=== PATIENT | male | born 1985 | race Caucasian/White ===

== ENCOUNTER 2018-07-01 19:39 | Emergency (ER) | payer OTHER ==
[~2018-07-01] VITALS: Ht 157.5 cm; Wt 67.0 kg
[~2018-07-01 19:39] MED LIST: BUPR8MIS PO
[2018-07-01 19:45] VITALS: TEMP 37.1; Ht 157.5 cm; Wt 67.0 kg
[2018-07-01] MEDS ORDERED: IBUPROFEN 600 MG TAB PO STA (19:56)
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
[2018-07-01] MEDS ORDERED: OXYC-90 PO (21:23)
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
[2018-07-01 21:52] VITALS: BP 119/62; PULSE 62; O2SAT 98
== END 2018-07-01 21:53 | disposition home or self-care (01) ==
LOC: C.EDB 19:42 → C.EDD 21:53
DX: S70.11XA Contusion of right thigh, initial encounter (principal); S50.311A Abrasion of right elbow, initial encounter; S40.219A Abrasion of unspecified shoulder, initial encounter; T14.8XXA Other injury of unspecified body region, initial encounter; V19.9XXA Pedal cyclist (driver) (passenger) injured in unspecified traffic accident, initial encounter; Y93.55 Activity, bike riding; F17.200 Nicotine dependence, unspecified, uncomplicated; Z86.19 Personal history of other infectious and parasitic diseases

== ENCOUNTER 2022-12-29 22:46 | Inpatient (IN) ==
[2022-12-29] MEDS ORDERED: SODIUM CHLORIDE 0.9% 1000ML 1,000 ML IV STA (23:21)
[2022-12-30] MEDS ORDERED: ONDANSETRON INJ 2 MG/ML 2 ML VIAL IV STA ×2 (00:02→01:53)
[2022-12-30] MEDS ORDERED: OCTREOTIDE ACETATE 50 MCG in SYRINGE 9.5 ML IV STA (00:02)
[2022-12-30] MEDS ORDERED: FAMOTIDINE 20MG IV PUSH 20 MG/5 ML SYR IV STA (00:02)
[2022-12-30] MEDS ORDERED: STAT IV STA ×2 (00:02→14:39)
[2022-12-30] MEDS ORDERED: PANTOprazole 80 MG in DEXTROSE 5% 100 ML IV STA (00:02)
[2022-12-30] MEDS ORDERED: OCTREOTIDE ACETATE 500 MCG in DEXTROSE 5% 100 ML IV SCH (00:15)
[2022-12-30] MEDS ORDERED: cefTRIAXone SODIUM 2,000 MG/70 ML BAG IV STA (00:28)
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
[2022-12-30] MEDS: SODIUM CHLORIDE 0.9% 1000ML 2,000 ML IV ONE ×2 (00:32→01:10)
[2022-12-30 00:45] LABS: Basophils # (auto) 0.11 K/uL (0-0.2); Basophils % (auto) 0.5 %; Hematocrit (blood only) 45.3 % (42.0-52.0); Hemoglobin 15.7 g/dl (14.0-18.0); Immature Granulocytes # (auto) 0.11 K/uL (0.01-0.20); Immature Granulocytes % (auto) 0.5 %; Lymphocytes # (auto) 0.98 K/uL (1.2-3.4); Lymphocytes % (auto) 4.9 %; Mean Corpuscular Hemoglobin 27.8 pg (25.0-34.0); Mean Corpuscular Hgb Conc 34.7 g/dL (32.0-36.0); Mean Corpuscular Volume 80.3 fL (80.0-100.0); Mean Platelet Volume 8.9 fL (9.4-12.4); Monocytes # (auto) 1.15 K/uL (0.11-0.59); Monocytes % (auto) 5.7 %; Neutrophils # (auto) 17.69 K/uL (1.40-6.50); Neutrophils % (auto) 88.4 %; Platelet Count 315 K/uL (130-400); RDW Coefficient of Variation 19.3 % (11.5-14.5); RDW Standard Deviation 53.7 fL (36.4-46.3); Red Blood Count 5.64 M/uL (4.70-6.10); White Blood Count 20.04 K/ul (4.8-10.8)
[2022-12-30 00:48] LABS: iSTAT Creatinine 1.1 mg/dl (0.6-1.3); iSTAT Hemoglobin 17.7 g/dl (14.0-18.0); iSTAT Ionized Calcium 0.95 mmol/l (1.12-1.32); iSTAT Potassium 2.8 mmol/L (3.3-5.0)
[2022-12-30 01:25] LABS: Albumin Globulin Ratio 1.1 (0.9-2); BUN Creatinine Ratio 14.7 (10-20); Bilirubin,Total 1.1 mg/dl (0.2-1.0); Calcium 9.7 mg/dl (8.5-10.1); Creatinine Clr Calc Pharmacy 83.1 ml/min; Est GFR (African American) 106.8 ml/min; Est GFR (Non-African American) 92.2 ml/min; Globulin 4.6 gm/dl (2.5-4.0); Magnesium 1.6 mg/dl (1.7-2.4); Potassium 2.9 mmol/L (3.5-5.1); Total Protein 9.6 gm/dl (6.0-8.3)
[2022-12-30] MEDS ORDERED: OPTIRAY 350 100ml IV ONE (03:11)
[2022-12-30 03:26] LABS: Appearance Urine Clear (Clear); Bilirubin Urine Negative (Negative); Blood Urine Negative (Negative); Color Urine Yellow; Glucose Urine UA Negative (Negative); Ketones Urine 2+ (Negative); Leukocyte Esterase Urine Negative (Negative); Nitrite Urine Negative (Negative); Protein Urine Negative (Negative); Specific Gravity Urine 1.012 (1.000-1.030); Urobilinogen Urine Negative (Negative)
[2022-12-30] MEDS: MAGNESIUM SULFATE / D5W 1 GM/100 ML BAG IV SCH ×2 (03:28→08:08)
[2022-12-30 03:51] LABS: Amphetamines+Metham, Urine Neg (Neg); Barbiturates, Urine Neg (Neg); Benzodiazepine, Urine Neg (Neg); Cocaine, Urine Neg (Neg); MDMA (Ecstacy), Urine Neg (Neg); Methadone, Urine Neg (Neg); Opiate, Urine Neg (Neg); Phencyclidine, Urine Neg (Neg)
[2022-12-30] MEDS ORDERED: LORazepam 2 MG/1 ML VIAL IV STA (03:54)
[2022-12-30] MEDS ORDERED: GABAPENTIN 600 MG TAB PO STA (04:10)
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
[2022-12-30] MEDS ORDERED: THIAMINE HCL 100 MG in SYRINGE 9 ML IV STA (04:16)
[2022-12-30] MEDS: POTASSIUM CHLORIDE / WTR 10 MEQ/100 ML PLCT IV SCH ×6 (04:25→10:21)
[2022-12-30] MEDS ORDERED: Ativan IV Alcohol Withdrawal--Active Protocol IV PRN (04:44)
[2022-12-30] MEDS ORDERED: LORazepam 2 MG/1 ML VIAL IV PRN ×3 (04:44)
[2022-12-30] MEDS ORDERED: GABAPENTIN 1200MG ALCOHOL WITHDRAWAL LOAD PO STA (04:44)
[2022-12-30] MEDS ORDERED: PROMETHAZINE HCL 12.5 MG in SODIUM CHLORIDE 0.9% 50 ML IV PRN (04:46)
[2022-12-30] MEDS ORDERED: SODIUM CHLORIDE 0.9% 1000ML 1,000 ML IV STA (04:54)
[2022-12-30 05:11] LABS: INR 1.1 (0.9-1.1); Prothrombin Time 11.2 Seconds (9.0-12.0)
[2022-12-30] MEDS: PANTOprazole 40 MG in DEXTROSE 5% 100 ML IV SCH ×4 (05:17→20:04)
[2022-12-30] MEDS ORDERED: hydrOXYzine HCl 25 MG TAB PO PRN (05:31)
[2022-12-30] MEDS ORDERED: ACETAMINOPHEN 500 MG TAB PO PRN (05:31)
[2022-12-30 06:34] LABS: Hematocrit (blood only) 39.2 % (42.0-52.0); Hemoglobin 13.4 g/dl (14.0-18.0)
--- NOTE | 2022-12-30 06:55 | XRay Report ---
XR chest 1V portable CLINICAL HISTORY: gi bleed, ETOH abuse COMPARISON STUDY: Chest radiograph March 07, 2019. FINDINGS: Lung volumes are mildly diminished. Lungs are clear. There is no pneumothorax or pleural ef fusion. Cardiac size is normal. Mediastinal contours are normal. There is no evidence for pulmonary e joey. IMPRESSION: No acute cardiopulmonary findings. ACT 112: Negative or not required by law. Electronically signed by: Saad Singh M.D. 12/30/2022 6:54 AM
[2022-12-30] MEDS ORDERED: MAGNESIUM SULFATE 1GM / D5W BAG IV ONE (08:06)
--- NOTE | 2022-12-30 08:16 | CT Scan Report ---
ABDOMEN AND PELVIS CT WITH IV CONTRAST CT DOSE: 392.96 mGy.cm HISTORY: Acute generalized abdominal pain with nausea and vomiting ETOH abuse, GI bleed, pain TECHNIQUE: Multiaxial CT images of the abdomen and pelvis were performed following the IV administrat ion of 87 cc of Optiray, A dose lowering technique was utilized adhering to the principles of ALARA. COMPARISON STUDY: 09/13/2016 FINDINGS: The lung bases are clear. No pneumatosis or pneumoperitoneum. Unremarkable spleen, pancreas , gallbladder and adrenal glands. Hepatomegaly with hepatic steatosis. Patency of the hepatic and por brigitte veins. There are a few nonobstructing calculi noted within the right kidney measuring up to 5 mm. Symmetric enhancement of the kidneys without hydronephrosis. The opacified renal collecting systems and ureters are within normal limits. Urinary bladder wall thickening with partial distention. Mild prostamegaly . Aorta and IVC are unremarkable. There is no lymphadenopathy identified. There is at least moderate circumferential wall thickening of the distal esophagus with mucosal hyper emia and mild adjacent inflammatory stranding. No bowel obstruction or bowel wall thickening. No asci jael or mesenteric inflammation. Appendectomy. Unremarkable soft tissues. Moderate disc space narrowin g with posterior disc osteophyte complex at the L1-L2 level resulting in moderate central canal steno sis with at least mild bilateral neural foraminal narrowing. No acute fracture. IMPRESSION: 1. Findings suggestive of a nonspecific esophagitis. This finding could be correlated with endoscopy if of further clinical concern. 2. No bowel obstruction or bowel wall thickening. 3. Hepatomegaly with hepatic steatosis. 4. Right nephrolithiasis. ACT 112: Negative or not required by law. The above report was generated using voice recognition software. It may contain grammatical, syntax o r spelling errors. Electronically signed by: Khoa Arora M.D. 12/30/2022 8:15 AM
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
[2022-12-30 08:39] LABS: Estimated Average Glucose 120 mg/dl; Hemoglobin A1C 5.8 % (4.5-5.6)
[2022-12-30] MEDS ORDERED: NON-FORMULARY MEDICATION (Multivitamin Tablet) PO SCH (09:00)
[2022-12-30] MEDS: FOLIC ACID 1 MG TAB PO SCH (09:37)
[2022-12-30] MEDS: ESCITALOPRAM OXALATE 10 MG TAB PO SCH (09:37)
[2022-12-30] MEDS: MULTIVITAMIN TAB PO SCH (09:37)
[2022-12-30] MEDS ORDERED: POTASSIUM CHLORIDE 10 MEQ / 100ML WTR IV ONE (10:20)
[2022-12-30] MEDS: GABAPENTIN 600 MG TAB PO SCH ×2 (10:40→18:13)
--- NOTE | 2022-12-30 12:23 | Electrocardiogram Report ---
Test Reason : Blood Pressure : / mmHG Vent. Rate : 094 BPM Atrial Rate : 094 BPM P-R Int : 126 ms QRS Dur : 076 ms QT Int : 396 ms P-R-T Axes : 065 -10 013 degrees QTc Int : 495 ms Normal sinus rhythm Prolonged QT Abnormal ECG No previous ECGs available Confirmed by Kang Osuna ([id number]) on 12/30/2022 12:23:06 PM Referred By: REFERRED SELF Confirmed By:Kang Osuna
[2022-12-30 13:06] LABS: Hematocrit (blood only) 40.1 % (42.0-52.0); Hemoglobin 13.5 g/dl (14.0-18.0)
[2022-12-30] MEDS: OCTREOTIDE ACETATE 500 MCG in DEXTROSE 5% 100 ML IV SCH (15:16)
--- NOTE | 2022-12-30 16:17 | Communication Note ---
Date of Service: December 30, 2022 He is a 37-year-old male with significant history of alcoholism and was admitted with hematemesis and melena. He remains hemodynamically stable and his h emoglobin remained stable. Monitoring hemoglobin. GI evaluation is done and he is going to have EGD tomorrow. Full progress note will be done tomorrow by the hospitalist. He remains n.p.o. and has been getting intravenous Protonix. Dr Nikki Gifford
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
--- NOTE | 2022-12-30 20:42 | Ultrasound Report ---
ABDOMINAL ULTRASOUND, RIGHT UPPER QUADRANT HISTORY: elevated LFTs, ETOH abuse. COMPARISON: Abdominal ultrasound 03/07/2019. Abdomen and pelvis CT 12/30/2022. FINDINGS: Pancreas: Obscured by overlying bowel gas. Liver: The liver is echogenic consistent with fatty change. Gallbladder: No gallbladder wall thickening. No gallstones. CBD: 4.5 mm. Right kidney: No hydronephrosis. There is a 3 mm stone within the upper pole, unchanged. IMPRESSION: 1. Hepatic steatosis. 2. Right-sided nephrolithiasis. No hydronephrosis. 3. Normal gallbladder. No gallstones. ACT 112: Negative or not required by law. Electronically signed by: Luigi Broussard M.D. 12/30/2022 8:41 PM
[2022-12-31] MEDS: GABAPENTIN 600 MG TAB PO SCH ×3 (00:16→16:09)
[2022-12-31] MEDS: OCTREOTIDE ACETATE 500 MCG in DEXTROSE 5% 100 ML IV SCH ×2 (00:18→10:51)
[2022-12-31] MEDS: PANTOprazole 40 MG in DEXTROSE 5% 100 ML IV SCH ×3 (01:57→11:50)
[2022-12-31] MEDS: FOLIC ACID 1 MG TAB PO SCH (08:39)
[2022-12-31] MEDS: ESCITALOPRAM OXALATE 10 MG TAB PO SCH (08:39)
[2022-12-31] MEDS: MULTIVITAMIN TAB PO SCH (08:39)
[2022-12-31] MEDS: THIAMINE HCL 100 MG TAB PO SCH (08:39)
[2022-12-31 09:42] LABS: Basophils # (auto) 0.04 K/uL (0-0.2); Basophils % (auto) 0.5 %; Eosinophils % (auto) 1.3 %; Hematocrit (blood only) 40.7 % (42.0-52.0); Hemoglobin 13.6 g/dl (14.0-18.0); Immature Granulocytes # (auto) 0.03 K/uL (0.01-0.20); Immature Granulocytes % (auto) 0.4 %; Lymphocytes # (auto) 1.41 K/uL (1.2-3.4); Lymphocytes % (auto) 17.9 %; Mean Corpuscular Hemoglobin 27.5 pg (25.0-34.0); Mean Corpuscular Hgb Conc 33.4 g/dL (32.0-36.0); Mean Corpuscular Volume 82.4 fL (80.0-100.0); Mean Platelet Volume 10.3 fL (9.4-12.4); Monocytes # (auto) 0.79 K/uL (0.11-0.59); Monocytes % (auto) 10.1 %; Neutrophils # (auto) 5.49 K/uL (1.40-6.50); Neutrophils % (auto) 69.8 %; Platelet Count 217 K/uL (130-400); RDW Coefficient of Variation 17.7 % (11.5-14.5); Red Blood Count 4.94 M/uL (4.70-6.10); White Blood Count 7.86 K/ul (4.8-10.8)
[2022-12-31 10:02] LABS: BUN Creatinine Ratio 15.6 (10-20); Calcium 8.9 mg/dl (8.5-10.1); Creatinine Clr Calc Pharmacy 110.1 ml/min; Est GFR (African American) 132.5 ml/min; Est GFR (Non-African American) 114.3 ml/min; Magnesium 2.1 mg/dl (1.7-2.4); Potassium 3.8 mmol/L (3.5-5.1)
--- NOTE | 2022-12-31 12:08 | History & Physical Bridge Note ---
Date of Service December 31, 2022 History & Physical Bridge Note I have examined the patient, reviewed the History & Physical and in the interval since the performance of the History & Physical I have noted the following changes of clinical significance: no changes noted. The patient had complaint of hematemesis upon admission yesterday evening, there is been no recurrence of hematemesis and his hemoglobin hematocrit have dropped significantly. I suspect the patient had a Lina-Hurst tear or perhaps bleeding from severe esophagitis as noted during prior upper endoscopy. Patient's nausea is most likely related to his habitual use of cannabis or perhaps alcohol abuse. We are planning to do upper endoscopy today, risks discussed with the patient to include bleeding, infection, perforation, pain and need for follow-up studies.
[2022-12-31] MEDS ORDERED: MIDAZOLAM HCL 1 MG/ML 2ML VIAL ONE (12:11)
[2022-12-31] MEDS ORDERED: LIDOCAINE 2% MPF LOCAL 5 ML VIAL INFIL ONE (12:11)
[2022-12-31] MEDS ORDERED: PROPOFOL IV EMULSION 10 MG/ML 20 ML VIAL IV ONE (12:11)
[2022-12-31] MEDS ORDERED: KETAMINE 50 MG/5 ML SYRINGE ONE (12:11)
--- NOTE | 2022-12-31 12:51 | Post Operative Brief Note ---
Immediate Post Op Note v1 Date of Surgery December 31, 2022 Pre & Post Diagnosis Operation Date: 12/31/22 12:40 Pre-Op Diagnosis: Upper GI Bleed, ETOH WITHDRAWAL Post-Op Diagnosis: esophagitis, hiatal hernia I identified the patient and participated in the time-out.: Yes Procedure Operation Date: 12/31/22 12:40 Actual Procedures p Esophagogastroduodenoscopy - Keo Bangura DO Surgeon Keo Bangura DO Flue Lining Dipper none Estimated Blood Loss 0 Findings Consistent with Post-Op Diagnosis
--- NOTE | 2022-12-31 12:54 | Communication Note ---
Date of Service: December 31, 2022 Patient underwent an upper endoscopy this afternoon. Patient was found to have a medium size hiatal hernia and severe erosive esophagitis of the distal esophagus. recommendation Stop octreotide drip Stop Protonix drip Advance diet as tolerated Protonix 40 mg twice daily for 6 weeks then 1 time daily thereafter Carafate slurry 4 times daily for 10 days Repeat upper endoscopy in 8 to 12 weeks Watch for signs of withdrawal patient should stop use of cannabis as this is certainly causing some of his continued symptoms GI to sign off please call with any additional questions or concerns
--- NOTE | 2022-12-31 12:56 | GI REPORT ---
Patient Name: El Gillis Procedure Date: 12/31/2022 12:11 PM Date of : 1985 Admit Type: Inpatient Age: 37 Gender: Male Attending MD: Keo Bangura DO, Procedure: Upper GI endoscopy Providers: Keo Bangura DO Referring MD: Tra Dick Md Indications: Hematemesis Medicines: Monitored Anesthesia Care Complications: No immediate complications. Estimated blood loss: Minimal. Estimated Blood Loss: Estimated blood loss was minimal. Procedure: Pre-Anesthesia Assessment: - Prior to the procedure, a History and Physical was performed, and patient medications, allergies and sensitivities were reviewed. The patient's tolerance of previous anesthesia was reviewed. - The risks and benefits of the procedure and the sedation options and risks were discussed with the patient. All questions were answered and informed consent was obtained. - Patient identification and proposed procedure were verified prior to the procedure by the physician, the nurse and the ground operations superintendent. The procedure was verified in the procedure room. - Pre-procedure physical examination revealed no contraindications to sedation. - ASA Grade Assessment: II - A patient with mild systemic disease. - After reviewing the risks and benefits, the patient was deemed in satisfactory condition to undergo the procedure. - The anesthesia plan was to use monitored anesthesia care (MAC). - Immediately prior to administration of medications, the patient was re-assessed for adequacy to receive sedatives. - The heart rate, respiratory rate, oxygen saturations, blood pressure, adequacy of pulmonary ventilation, and response to care were monitored throughout the procedure. - The physical status of the patient was re-assessed after the procedure. After obtaining informed consent, the endoscope was passed under direct vision. Throughout the procedure, the patient's blood pressure, pulse, and oxygen saturations were monitored continuously. The Endoscope was introduced through the mouth, and advanced to the third part of duodenum. The upper GI endoscopy was accomplished without difficulty. The patient tolerated the procedure well. Findings: LA Grade D (one or more mucosal breaks involving at least 75% of esophageal circumference) esophagitis with no bleeding was found in the lower third of the esophagus. A medium-sized hiatal hernia was found. The proximal extent of the gastric folds (end of tubular esophagus) was 35 cm from the incisors. The hiatal narrowing was 39 cm from the incisors. The entire examined stomach was normal. The examined duodenum was normal. Impression: - LA Grade D esophagitis with no bleeding. - Medium-sized hiatal hernia. - Normal stomach. - Normal examined duodenum. - No specimens collected. Recommendation: - Return patient to [facility] for [facility] care. - Advance diet as tolerated today. - Use Protonix (pantoprazole) 40 mg PO BID for 6 weeks the 40 mg daily thereafter. - Use sucralfate suspension 1 gram PO QID for 10 days. - Repeat upper endoscopy in 3 months to check healing. - Patient should be advised to stop cannabis and alcohol consumption. Keo Bangura D.O. Keo Bangura, DO 12/31/2022 12:56:04 PM This report has been signed electronically. Note Initiated On: 12/31/2022 12:11 PM Number of Addenda: 0 I attest to the content of the Intraoperative Record and orders documented therein, exceptions below {[id number]}
[2022-12-31] MEDS ORDERED: ONDANSETRON INJ 2 MG/ML 2 ML VIAL IV PRN (13:17)
[2022-12-31] MEDS ORDERED: ePHEDrine sulfate 50 MG/ML AMP IV PRN (13:17)
[2022-12-31] MEDS ORDERED: ATROPINE SULFATE 0.1 MG/ML 10ML SYR IV PRN (13:17)
--- NOTE | 2022-12-31 13:17 | Anesthesiology Progress Note ---
Date of Service December 31, 2022 Anesthesia Post Procedure Vital Signs Vital Signs: Temp Pulse Pulse Pulse Resp BP BP 12/31/22 13:05 57 L 18 105/66 12/31/22 12:57 36 C L 55 L 20 106/61 12/31/22 12:00 36.9 C 56 L 20 135/89 12/31/22 11:59 37.2 C 56 L 18 124/75 12/31/22 07:56 37.3 C 61 18 117/77 12/31/22 07:44 52 L 12/31/22 04:00 37.1 C 56 L 18 145/95 H 12/30/22 22:02 61 12/30/22 23:00 36.8 C 64 18 126/81 12/30/22 19:00 36.9 C 65 18 139/89 12/30/22 17:14 37.4 C 78 18 143/92 H Pulse Ox O2 Del Method O2 Flow Rate 12/31/22 13:05 95 Oxymask 6 12/31/22 12:57 92 Oxymask 6 12/31/22 12:00 93 Room Air 12/31/22 11:59 97 Room Air 12/31/22 07:56 96 Room Air 12/31/22 07:44 12/31/22 04:00 96 Room Air 12/30/22 22:02 12/30/22 23:00 97 Room Air 12/30/22 19:00 95 Room Air 12/30/22 17:14 98 Room Air Pain Intensity Generalized: Pain Intensity: 3 Transfer of Care Handoff Completed per policy Notes Mental Status: alert / awake / arousable and participated in evaluation Nausea / Vomiting: adequately controlled Pain: adequately controlled Airway Patency, RR, SpO2: stable & adequate BP & HR: stable & adequate Hydration State: stable & adequate Anesthetic Complications: no major complications apparent and Pt Satisfied with anesthetic care
--- NOTE | 2022-12-31 13:49 | Hospitalist Progress Note ---
Date of Service December 31, 2022 Assessment & Plan (1) Acute GI bleeding: Plan: Acute Upper GI bleeding Likely due to Erosive Esophagitis NSAIDs use likely contributes --H/O GERD, Alcohol abuse --S/P EGD:LA Grade D esophagitis with no bleeding. Medium-sized hiatal hernia. Normal stomach. Normal examined duodenum. No specimens collected. --CT ABD:Findings suggestive of a nonspecific esophagitis. This finding could be correlated with endoscopy if of further clinical concern. No bowel obstruction or bowel wall thickening. Hepatomegaly with hepatic steatosis. Right nephrolithiasis. --Abd USD:Hepatic steatosis. Right-sided nephrolithiasis. No hydronephrosis. Normal gallbladder. No gallstones. --- IV Protonix drip, octreotide drip discontinued Started on Carafate, Protonix --Appreciate GI input Hemoglobin stable Advance diet as tolerated Plan to continue Carafate for 10 days We will need to repeat upper endoscopy in 8 to 12 weeks Advised to stop cannabis use Plan to continue Protonix 40 mg twice daily for 6 weeks and then once daily Needs to avoid NSAID use Alcohol withdrawal H/O HCV S/P treatment Continue gabapentin protocol Monitor for withdrawal Ativan as needed Continue thiamine, folic acid Mood disorder Continue home medication Hypokalemia Hypomagnesemia Replete electrolytes as needed Prediabetes HbA1c 5.8 DVT Px: SCDs Re: GI bleed Code Status Full code Admission and Anticipated Discharge Date Admission Date: December 30, 2022 Subjective Patient is seen and examined at bedside States having some throat pain Had EGD earlier today Denies any chest pain, shortness of breath, dizziness, nausea, abdominal pain No bleeding issues today Review of Systems Review of Systems: All systems reviewed & are unremarkable except as noted in Subjective Physical Exam Physical Exam: Physical Exam: Vitals signs as noted above General Appearance:Moderately built and nourished, no apparent distress Head: normocephalic, Atraumatic Eyes: normal inspection, EOMI Neck: supple, Trachea midline Respiratory/Chest: Normal breath sounds, CTA, No accessory muscle use Cardiovascular: S1, S2, No murmur Abdomen/GI:Soft, Non tender, Bowel sounds present Extremities/Musculoskeletal:normal inspection, no edema Neurologic/Psych:AAOX3, grossly no focal neurological deficits Skin: normal color, warm Results & Data Results & Data ([facility]) Vital Signs (Past 12 Hours) Vital Signs Temp Pulse Pulse Pulse Resp BP BP 12/31/22 13:35 55 L 20 119/75 12/31/22 13:25 36.4 C L 56 L 20 113/69 12/31/22 13:15 62 12 118/84 12/31/22 13:05 57 L 18 105/66 12/31/22 12:57 36 C L 55 L 20 106/61 12/31/22 12:00 36.9 C 56 L 20 135/89 12/31/22 11:59 37.2 C 56 L 18 124/75 12/31/22 07:56 37.3 C 61 18 117/77 12/31/22 07:44 52 L 12/31/22 04:00 37.1 C 56 L 18 145/95 H Pulse Ox O2 Del Method O2 Flow Rate 12/31/22 13:35 93 Room Air 12/31/22 13:25 96 Room Air 12/31/22 13:15 96 Room Air 12/31/22 13:05 95 Oxymask 6 12/31/22 12:57 92 Oxymask 6 12/31/22 12:00 93 Room Air 12/31/22 11:59 97 Room Air 12/31/22 07:56 96 Room Air 12/31/22 07:44 12/31/22 04:00 96 Room Air Laboratory Results Short CBC 12/31/22 Range/Units 09:04 WBC 7.86 (4.8-10.8) K/ul Hgb 13.6 L (14.0-18.0) g/dl Hct 40.7 L (42.0-52.0) % Plt Count 217 (130-400) K/uL BMP 12/31/22 09:04 Sodium 136 Potassium 3.8 D Chloride 100 Carbon Dioxide 27 BUN 12 Creatinine 0.77 Glucose 120 H Calcium 8.9
[2022-12-31] MEDS: SUCRALFATE 1 GM TAB PO SCH ×2 (16:08→21:22)
[2022-12-31] MEDS: SUCRALFATE 1 GM/10 ML UDC PO SCH ×3 (16:11→21:19)
[2022-12-31] MEDS ORDERED: PANTOprazole 40 MG TAB PO SCH (21:00)
[2022-12-31] MEDS: PANTOprazole 40 MG TAB PO SCH (21:21)
[2023-01-01] MEDS ORDERED: GABAPENTIN 600 MG TAB PO SCH (04:45)
[2023-01-01 06:32] LABS: Hematocrit (blood only) 41.2 % (42.0-52.0); Mean Corpuscular Hemoglobin 27.9 pg (25.0-34.0); Mean Corpuscular Volume 82.1 fL (80.0-100.0); Mean Platelet Volume 9.5 fL (9.4-12.4); Platelet Count 207 K/uL (130-400); RDW Coefficient of Variation 17.3 % (11.5-14.5); RDW Standard Deviation 51.1 fL (36.4-46.3); Red Blood Count 5.02 M/uL (4.70-6.10); White Blood Count 8.72 K/ul (4.8-10.8)
[2023-01-01 06:48] LABS: Albumin Globulin Ratio 1.1 (0.9-2); Albumin Level 4.1 gm/dl (3.4-5.0); BUN Creatinine Ratio 17.1 (10-20); Bilirubin,Total 1.3 mg/dl (0.2-1.0); Calcium 9.2 mg/dl (8.5-10.1); Creatinine Clr Calc Pharmacy 105.7 ml/min; Est GFR (African American) 129.1 ml/min; Est GFR (Non-African American) 111.4 ml/min; Globulin 3.7 gm/dl (2.5-4.0); Magnesium 2.1 mg/dl (1.7-2.4); Potassium 3.6 mmol/L (3.5-5.1); Total Protein 7.8 gm/dl (6.0-8.3)
[2023-01-01] MEDS: SUCRALFATE 1 GM TAB PO SCH ×2 (09:26→12:55)
[2023-01-01] MEDS: ESCITALOPRAM OXALATE 10 MG TAB PO SCH (09:26)
[2023-01-01] MEDS: PANTOprazole 40 MG TAB PO SCH (09:26)
[2023-01-01] MEDS: FOLIC ACID 1 MG TAB PO SCH (09:26)
[2023-01-01] MEDS: MULTIVITAMIN TAB PO SCH (09:27)
[2023-01-01] MEDS: THIAMINE HCL 100 MG TAB PO SCH (09:27)
[2023-01-01 12:27] LABS: Marijuana Quant, GCMS Urine 352 ng/mL (<5)
--- NOTE | 2023-01-01 13:48 | Hospitalist Progress Note ---
Date of Service January 01, 2023 Assessment & Plan (1) Acute GI bleeding: Plan: Acute Upper GI bleeding Likely due to Erosive Esophagitis NSAIDs use likely contributes --H/O GERD, Alcohol abuse --S/P EGD:LA Grade D esophagitis with no bleeding. Medium-sized hiatal hernia. Normal stomach. Normal examined duodenum. No specimens collected. --CT ABD:Findings suggestive of a nonspecific esophagitis. This finding could be correlated with endoscopy if of further clinical concern. No bowel obstruction or bowel wall thickening. Hepatomegaly with hepatic steatosis. Right nephrolithiasis. --Abd USD:Hepatic steatosis. Right-sided nephrolithiasis. No hydronephrosis. Normal gallbladder. No gallstones. --- IV Protonix drip, octreotide drip discontinued Started on Carafate, Protonix --Appreciate GI input Hemoglobin stable Advance diet as tolerated Plan to continue Carafate for 10 days Will need to repeat upper endoscopy in 8 to 12 weeks Advised to stop cannabis, alcohol use Plan to continue Protonix 40 mg twice daily for 6 weeks and then once daily Needs to avoid NSAID use Hb stable Advised to follow-up with GI upon discharge Alcohol withdrawal H/O HCV S/P treatment Continue gabapentin protocol Monitor for withdrawal Ativan as needed Continue thiamine, folic acid Outpatient resources for rehab provided Mood disorder Continue home medication Hypokalemia Hypomagnesemia Replete electrolytes as needed Prediabetes HbA1c 5.8 DVT Px: SCDs Re: GI bleed Code Status Full code Disposition Home Admission and Anticipated Discharge Date Admission Date: December 30, 2022 Subjective Patient is seen and examined at bedside States having transient nausea earlier today but resolved Tolerating diet Denies any chest pain, shortness of breath, dizziness, nausea, abdominal pain No recurrence of bleeding issues Review of Systems Review of Systems: All systems reviewed & are unremarkable except as noted in Subjective Physical Exam Physical Exam: Physical Exam: Vitals signs as noted above General Appearance:Moderately built and nourished, no apparent distress Head: normocephalic, Atraumatic Eyes: normal inspection, EOMI Neck: supple, Trachea midline Respiratory/Chest: Normal breath sounds, CTA, No accessory muscle use Cardiovascular: S1, S2, No murmur Abdomen/GI:Soft, Non tender, Bowel sounds present Extremities/Musculoskeletal:normal inspection, no edema Neurologic/Psych:AAOX3, grossly no focal neurological deficits Skin: normal color, warm Results & Data Results & Data ([facility]) Vital Signs (Past 12 Hours) Vital Signs Temp Pulse Pulse Resp BP Pulse Ox O2 Del Method 01/01/23 12:00 37.1 C 74 18 131/88 98 Room Air 01/01/23 07:58 36.9 C 56 L 18 132/78 97 Room Air 01/01/23 07:25 56 L 01/01/23 04:00 36.9 C 70 18 125/77 93 Room Air Laboratory Results Short CBC 01/01/23 Range/Units 05:47 WBC 8.72 (4.8-10.8) K/ul Hgb 14.0 (14.0-18.0) g/dl Hct 41.2 L (42.0-52.0) % Plt Count 207 (130-400) K/uL BMP 01/01/23 05:47 Sodium 137 Potassium 3.6 Chloride 101 Carbon Dioxide 29 BUN 14 Creatinine 0.82 Glucose 110 H Calcium 9.2 Liver Function 01/01/23 Range/Units 05:47 Total Bilirubin 1.3 H (0.2-1.0) mg/dl AST 31 (13-39) U/L ALT 19 (7-52) U/L Alkaline Phosphatase 82 (34-104) U/L Albumin 4.1 (3.4-5.0) gm/dl
--- NOTE | 2023-01-01 14:04 | Discharge Summary ---
Date of Service January 01, 2023 Admission HPI Per Admitting Provider History obtained from patient and records. Medical history significant for HCV status post treatment, GERD, history anal fissure, mood disorder, chronic anemia (baseline hemoglobin of 13 ), alcohol abuse. Patient has had intermittent hematemesis episodes and abdominal pain over the last few years. Episodes related to alcohol intake as per patient. Symptoms would resolve with temporary cessation of alcohol intake. Patient moved back with his parents in [place] 3 months ago after living in [place]. 5 days ago, patient noted worsening achy abdominal discomfort with nausea symptoms. No fever, no chills. Short of breath from pain. Hematemesis worse than usual noted yesterday. 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 Patient shaky and freezing from discomfort yesterday. Denies depression. Patient drinks alcohol to keep himself preoccupied because he has nothing else to do at home. Melanotic stools noted at the ER. 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 Admission Exam Per Admitting Provider Physical Exam Physical Exam: GENERAL: uncomfortable, tremulous, no respiratory distress SKIN: Pallor, warm HEENT: Pale palpebral conjunctivae, no ptosis, dry buccal mucosa NECK : Supple, no tenderness CHEST : CTA, no tenderness HEART : RRR, no obvious murmurs ABDOMEN: Some distention, epigastric tenderness EXTREMITIES : No LE swelling/tenderness, no other conspicuous deformities noted NEUROLOGIC : Coherent, no facial asymmetry, tremulous, no other gross focality Principal Diagnosis Acute Upper GI bleeding Erosive Esophagitis Alcohol withdrawal Hypokalemia Hypomagnesemia Cannabis use Discharge Data Allergies Allergy/AdvReac Type Severity Reaction Status Date / Time No Known Allergies Allergy Verified 12/30/22 01:18 Consultations 12/30/22 03:55 ED Decision to Admit Stat 12/30/22 05:31 Consult Gastroenterology Routine Procedures Performed Operation Date: 12/31/22 12:40 Actual Procedures p Esophagogastroduodenoscopy - Keo Bangura DO Ordered Studies 12/30/22 00:07 CT Abd and Pelvis [CT abd pelvis IV con only] Urgent 12/30/22 09:19 US abdomen limited Routine Laboratory Results WBC 8.72 K/ul (4.8-10.8) 01/01/23 05:47 RBC 5.02 M/uL (4.70-6.10) 01/01/23 05:47 Hgb 14.0 g/dl (14.0-18.0) 01/01/23 05:47 POC Hgb 17.7 g/dl (14.0-18.0) 12/30/22 00:36 Hct 41.2 % (42.0-52.0) L 01/01/23 05:47 POC Hct 52 % (42-52) 12/30/22 00:36 MCV 82.1 fL (80.0-100.0) 01/01/23 05:47 MCH 27.9 pg (25.0-34.0) 01/01/23 05:47 MCHC 34.0 g/dL (32.0-36.0) 01/01/23 05:47 RDW Std Deviation 51.1 fL (36.4-46.3) H 01/01/23 05:47 RDW Coeff of Luke 17.3 % (11.5-14.5) H 01/01/23 05:47 Plt Count 207 K/uL (130-400) 01/01/23 05:47 MPV 9.5 fL (9.4-12.4) 01/01/23 05:47 Immature Gran % (Auto) 0.4 % 12/31/22 09:04 Neut % (Auto) 69.8 % 12/31/22 09:04 Lymph % (Auto) 17.9 % 12/31/22 09:04 Dundy % (Auto) 10.1 % 12/31/22 09:04 Eos % (Auto) 1.3 % 12/31/22 09:04 Baso % (Auto) 0.5 % 12/31/22 09:04 Neut # (Auto) 5.49 K/uL (1.40-6.50) 12/31/22 09:04 Lymph # (Auto) 1.41 K/uL (1.2-3.4) 12/31/22 09:04 Dundy # (Auto) 0.79 K/uL (0.11-0.59) H 12/31/22 09:04 Eos # (Auto) 0.10 K/uL (0-0.50) 12/31/22 09:04 Baso # (Auto) 0.04 K/uL (0-0.2) 12/31/22 09:04 Immature Gran # (Auto) 0.03 K/uL (0.01-0.20) 12/31/22 09:04 PT 11.2 Seconds (9.0-12.0) 12/30/22 00:35 INR 1.1 (0.9-1.1) 12/30/22 00:35 POC Sodium 141 mmol/L (135-144) 12/30/22 00:36 Sodium 137 mmol/L (136-145) 01/01/23 05:47 POC Potassium 2.8 mmol/L (3.3-5.0) L 12/30/22 00:36 Potassium 3.6 mmol/L (3.5-5.1) 01/01/23 05:47 POC Chloride 98 mmol/L (101-112) L 12/30/22 00:36 Chloride 101 mmol/L (98-107) 01/01/23 05:47 Carbon Dioxide 29 mmol/L (21-32) 01/01/23 05:47 POC Total CO2 22 mmol/L (24-31) L 12/30/22 00:36 Anion Gap 7 (3-11) 01/01/23 05:47 POC Anion Gap 25.0 mmol/L (16-25) 12/30/22 00:36 POC BUN 14 mg/dl (7-18) 12/30/22 00:36 BUN 14 mg/dl (6-23) 01/01/23 05:47 Creatinine 0.82 mg/dl (0.6-1.4) 01/01/23 05:47 POC Creatinine 1.1 mg/dl (0.6-1.3) 12/30/22 00:36 Est Cr Clr Drug Dosing 105.7 ml/min 01/01/23 05:47 Est GFR ( Amer) 129.1 ml/min 01/01/23 05:47 Est GFR (Non-Af Amer) 111.4 ml/min 01/01/23 05:47 BUN/Creatinine Ratio 17.1 (10-20) 01/01/23 05:47 Glucose 110 mg/dl (70-99(Fasting)) H 01/01/23 05:47 POC Glucose (other) 134 mg/dl (70-99) H 12/30/22 00:36 Estimat Average Glucose 120 mg/dl 12/30/22 00:35 Hemoglobin A1c 5.8 % (4.5-5.6) H 12/30/22 00:35 Calcium 9.2 mg/dl (8.5-10.1) 01/01/23 05:47 POC Ioniz Calcium Dillon 0.95 mmol/l (1.12-1.32) L 12/30/22 00:36 Magnesium 2.1 mg/dl (1.7-2.4) 01/01/23 05:47 Total Bilirubin 1.3 mg/dl (0.2-1.0) H 01/01/23 05:47 AST 31 U/L (13-39) 01/01/23 05:47 ALT 19 U/L (7-52) 01/01/23 05:47 Alkaline Phosphatase 82 U/L (34-104) 01/01/23 05:47 Total Creatine Kinase 509 U/L (30-223) H 12/30/22 00:35 Total Protein 7.8 gm/dl (6.0-8.3) 01/01/23 05:47 Albumin 4.1 gm/dl (3.4-5.0) 01/01/23 05:47 Globulin 3.7 gm/dl (2.5-4.0) 01/01/23 05:47 Albumin/Globulin Ratio 1.1 (0.9-2) 01/01/23 05:47 Lipase 28 U/L (11-82) 12/30/22 00:35 TSH 2.233 uIu/ml (0.300-4.500) 12/30/22 00:35 Urine Color Yellow 12/30/22 02:47 Urine Appearance Clear (Clear) 12/30/22 02:47 Urine pH 6.0 (4.5-7.5) 12/30/22 02:47 Ur Specific Gilbert 1.012 (1.000-1.030) 12/30/22 02:47 Urine Protein Negative (Negative) 12/30/22 02:47 Urine Glucose (UA) Negative (Negative) 12/30/22 02:47 Urine Ketones 2+ (Negative) H 12/30/22 02:47 Urine Blood Negative (Negative) 12/30/22 02:47 Urine Nitrite Negative (Negative) 12/30/22 02:47 Urine Bilirubin Negative (Negative) 12/30/22 02:47 Urine Urobilinogen Negative (Negative) 12/30/22 02:47 Ur Leukocyte Esterase Negative (Negative) 12/30/22 02:47 Urine Opiates Screen Neg (Neg) 12/30/22 02:47 Ur Methadone, Qual Neg (Neg) 12/30/22 02:47 Acetaminophen < 3 ug/ml (10-30) L 12/30/22 12:49 Urine Barbiturates Neg (Neg) 12/30/22 02:47 Ur Phencyclidine (PCP) Neg (Neg) 12/30/22 02:47 U Amphetamin/Meth Scrn Neg (Neg) 12/30/22 02:47 MDMA (Ecstasy) Screen Neg (Neg) 12/30/22 02:47 U Benzodiazepines Scrn Neg (Neg) 12/30/22 02:47 Ur Cocaine Metabolite Neg (Neg) 12/30/22 02:47 U Marijuana (THC) Screen Pos (Neg) H 12/30/22 02:47 U Marijuana THC Carboxy 352 ng/mL (<5) H 12/30/22 02:47 Drug Screen Comment SEE NOTE 12/30/22 02:47 Ethyl Alcohol mg/dL 34.2 mg/dl (<10.0) H 12/30/22 02:04 SARS-CoV-2, RNA, NAAT NEGATIVE (NEGATIVE) 12/30/22 01:53 Blood Type O Positive 12/30/22 00:40 Antibody Screen NEGATIVE 12/30/22 00:40 Impressions Abdomen/Pelvis CT 12/30/22 00:[address] WITH IV CONTRAST CT DOSE: 392.96 mGy.cm HISTORY: Acute generalized abdominal pain with nausea and vomiting ETOH abuse, GI bleed, pain TECHNIQUE: Multiaxial CT images of the abdomen and pelvis were performed following the IV administration of 87 cc of Optiray, A dose lowering technique was utilized adhering to the principles of ALARA. COMPARISON STUDY: 09/13/2016 FINDINGS: The lung bases are clear. No pneumatosis or pneumoperitoneum. Unremarkable spleen, pancreas, gallbladder and adrenal glands. Hepatomegaly with hepatic steatosis. Patency of the hepatic and portal veins. There are a few nonobstructing calculi noted within the right kidney measuring up to 5 mm. Symmetric enhancement of the kidneys without hydronephrosis. The opacified renal collecting systems and ureters are within normal limits. Urinary bladder wall thickening with partial distention. Mild prostamegaly. Aorta and IVC are unremarkable. There is no lymphadenopathy identified. There is at least moderate circumferential wall thickening of the distal esophagus with mucosal hyperemia and mild adjacent inflammatory stranding. No bowel obstruction or bowel wall thickening. No ascites or mesenteric inflammation. Appendectomy. Unremarkable soft tissues. Moderate disc space narrowing with posterior disc osteophyte complex at the L1-L2 level resulting in moderate central canal stenosis with at least mild bilateral neural foraminal narrowing. No acute fracture. IMPRESSION: 1. Findings suggestive of a nonspecific esophagitis. This finding could be correlated with endoscopy if of further clinical concern. 2. No bowel obstruction or bowel wall thickening. 3. Hepatomegaly with hepatic steatosis. 4. Right nephrolithiasis. ACT 112: Negative or not required by law. The above report was generated using voice recognition software. It may contain grammatical, syntax or spelling errors. Electronically signed by: Khoa Arora M.D. 12/30/2022 8:15 AM Chest X-Ray 12/30/22 00:24 XR chest 1V portable CLINICAL HISTORY: gi bleed, ETOH abuse COMPARISON STUDY: Chest radiograph March 07, 2019. FINDINGS: Lung volumes are mildly diminished. Lungs are clear. There is no pneumothorax or pleural effusion. Cardiac size is normal. Mediastinal contours are normal. There is no evidence for pulmonary edema. IMPRESSION: No acute cardiopulmonary findings. ACT 112: Negative or not required by law. Electronically signed by: Saad Singh M.D. 12/30/2022 6:54 AM Abdomen Ultrasound 12/30/22 09:19 ABDOMINAL ULTRASOUND, RIGHT UPPER QUADRANT HISTORY: elevated LFTs, ETOH abuse. COMPARISON: Abdominal ultrasound 03/07/2019. Abdomen and pelvis CT 12/30/2022. FINDINGS: Pancreas: Obscured by overlying bowel gas. Liver: The liver is echogenic consistent with fatty change. Gallbladder: No gallbladder wall thickening. No gallstones. CBD: 4.5 mm. Right kidney: No hydronephrosis. There is a 3 mm stone within the upper pole, unchanged. IMPRESSION: 1. Hepatic steatosis. 2. Right-sided nephrolithiasis. No hydronephrosis. 3. Normal gallbladder. No gallstones. ACT 112: Negative or not required by law. Electronically signed by: Luigi Broussard M.D. 12/30/2022 8:41 PM Hospital Course (1) Acute GI bleeding: Acute Upper GI bleeding Likely due to Erosive Esophagitis NSAIDs use likely contributes --H/O GERD, Alcohol abuse --S/P EGD:LA Grade D esophagitis with no bleeding. Medium-sized hiatal hernia. Normal stomach. Normal examined duodenum. No specimens collected. --CT ABD:Findings suggestive of a nonspecific esophagitis. This finding could be correlated with endoscopy if of further clinical concern. No bowel obstruction or bowel wall thickening. Hepatomegaly with hepatic steatosis. Right nephrolithiasis. --Abd USD:Hepatic steatosis. Right-sided nephrolithiasis. No hydronephrosis. Normal gallbladder. No gallstones. --- IV Protonix drip, octreotide drip discontinued Started on Carafate, Protonix --Appreciate GI input Hemoglobin stable Advance diet as tolerated Plan to continue Carafate for 10 days Will need to repeat upper endoscopy in 8 to 12 weeks Advised to stop cannabis, alcohol use Plan to continue Protonix 40 mg twice daily for 6 weeks and then once daily Needs to avoid NSAID use Hb stable Advised to follow-up with GI upon discharge Alcohol withdrawal H/O HCV S/P treatment Continue gabapentin protocol Monitor for withdrawal Ativan as needed Continue thiamine, folic acid Outpatient resources for rehab provided Mood disorder Continue home medication Hypokalemia Hypomagnesemia Replete electrolytes as needed Prediabetes HbA1c 5.8 DVT Px: SCDs Re: GI bleed Code Status Full code Disposition Home Total Time Total Time Spent Total Time Spent (In Minutes): 50 minutes Discharge Plan Discharge Items Patient Disposition: Home - Self-Care Reason For Visit: UGIB, ETOH WITHDRAWAL Discharge Diagnosis: Acute Upper GI bleeding Erosive Esophagitis Alcohol withdrawal Hypokalemia Hypomagnesemia Cannabis use Condition on Discharge: Fair Activity: Per Instructions section Exercise/Sports: Gradually increase as tolerated Non-emergency contact: Primary Care Provider and Ct Scan Tech Call non-emergency contact if: you have any medication questions, your symptoms worsen, your pain is concerning for you and you have a fever Follow-up/Referrals: PCP,NO [Primary Care Provider] - Diet: Heart Healthy Addtl Attending Provider Instructions: Follow-up with your primary care physician in 1 week as advised 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 List Of these medications includes but not limited to: Aspirin Diclofenac Ibuprofen, Motrin, Advil Toradol,ketorolac Naproxen, Aleve, Naprosyn You can take Tylenol as needed for pain or fever When buying [id number] pain medications please consult with pharmacy if you are not sure regarding ingredients, as a lot of the pain medications have combination of NSAIDs and Tylenol. Seek immediate medical attention if your symptoms reoccur or worsen Please take all medications as instructed on discharge list below. Please call if you have any questions or problems. You can reach a [facility] hospitalist on duty at [facility] 24 hours a day by calling [phone] Pending Studies at Discharge: No Stand-Alone Forms: [facility] [email or web address], Work/School Release, Smoking Cessation Medications and DC Order Prescriptions: New pantoprazole 40 mg Tablet,Delayed Release (Dr/Ec) 40 mg PO UD Qty: 60 2RF Rx Instructions: Take Protonix 40 mg twice daily for 6 weeks and then once daily sucralfate 1 gram Tablet 1 g PO QID 10 Days Qty: 40 0RF thiamine HCl (vitamin B1) 100 mg Tablet 100 mg PO QAM Qty: 30 0RF folic acid 1 mg Tablet 1 mg PO QAM Qty: 30 0RF Continued escitalopram oxalate 10 mg tablet 10 mg PO DAILY multivitamin Tablet 1 tab PO DAILY hydroxyzine HCl 50 mg tablet 50 mg PO HS PRN (Reason: SLEEP/ANXIETY) hydrocortisone 2.5 % Cream With Perineal Applicator 1 applic MI BID PRN (Reason: Hemorrhoids) ergocalciferol (vitamin D2) [Vitamin D2] 1,250 mcg (50,000 unit) Capsule 1,250 mcg PO WK cholecalciferol (vitamin D3) [Vitamin D3] 25 mcg (1,000 unit) Capsule 25 mcg PO DAILY Selenium Powder 1 tbsp PO DAILY Discontinued omeprazole 20 mg Capsule,Delayed Release(Dr/Ec) 20 mg PO DAILY Discharge Orders: Discharge Order (Routine); Ordered 01/01/23 Ordered By: Tra Dick Admission Data Admit Date/Time: 12/30/22 04:42 Attending Provider: Tra Dick Admit Provider: Hua Nieto Primary Care Provider: PCP,NO Other Providers: [facility] ; Hua Nieto ; Tylor Santamaria ; Yandel Walton ; Oriana Du ; Zoila Esteban ; Janeen Serra ; Jory Hernandez ; Vignesh Gaitan ; Ankush Walker ; Keo Bangura ; Jodie Alfredo ; Jaylen Noble ; Niya Yusuf ; Ayaka Camara ; Gabriela Barksdale ; Shauna Mitchell ; Rocael Coleman ; Alexei Hunt ; Fred Tineo ; Jami Nice ; Vu Joseph Jr
[2023-01-02] MEDS ORDERED: GABAPENTIN 600 MG TAB PO SCH (16:45)
[2023-01-03 13:42] LABS: HBSAG NON-REACTIVE (NON-REACTIVE); Hepatitis A Antibody IgM NON-REACTIVE (NON-REACTIVE); Hepatitis B Core Antibody IgM NON-REACTIVE (NON-REACTIVE); Hepatitis C Vira RNA (Log) PCR <1.18 NOT DETECTED Log IU/mL (NOT DETECTED); Hepatitis C Viral RNA by PCR <15 NOT DETECTED IU/mL (NOT DETECTED)
== END 2023-01-01 15:25 | disposition home or self-care (01) | DRG 369 ==
LOC: ED 22:46 → SUATTDRO 12-30 04:42 → EDINP 12-30 04:42 → 2W 12-30 05:24

== ENCOUNTER 2023-10-11 23:06 | Inpatient (IN) ==
[2023-10-11] MEDS ORDERED: ONDANSETRON INJ 2 MG/ML 2 ML VIAL IV STA (23:52)
[2023-10-11] MEDS ORDERED: MULTI-VITAMIN INFUSION 10 ML, THIAMINE HCL 100 MG, FOLIC ACID 1 MG in SODIUM CHLORIDE 0... IV ONE (23:52)
[2023-10-12] MEDS ORDERED: LORazepam 1 MG/1 ML SYR ED Inj Use IV STA ×2 (00:08→01:08)
[2023-10-12 00:17] LABS: Albumin Globulin Ratio 1.2 (0.9-2); Albumin Level 4.9 gm/dl (3.4-5.0); BUN Creatinine Ratio 13.8 (10-20); Bilirubin,Total 0.9 mg/dl (0.2-1.0); Creatinine Clr Calc Pharmacy 107.4 ml/min; Est GFR (African American) 129.5 ml/min; Est GFR (Non-African American) 111.7 ml/min; Globulin 4.2 gm/dl (2.5-4.0); Potassium 4.1 mmol/L (3.5-5.1); Total Protein 9.1 gm/dl (6.0-8.3)
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
[2023-10-12 00:24] LABS: Troponin I High Sensitivity 7.2 pg/ml (0-20)
[2023-10-12 00:36] LABS: Acetaminophen < 3 ug/ml (10-30); Salicylate < 3.0 mg/dl (3.0-30)
[2023-10-12 00:47] LABS: Amphetamines+Metham, Urine Neg (Neg); Barbiturates, Urine Neg (Neg); Benzodiazepine, Urine Neg (Neg); Cocaine, Urine Neg (Neg); MDMA (Ecstacy), Urine Neg (Neg); Marijuana, Urine Pos (Neg); Methadone, Urine Neg (Neg); Opiate, Urine Neg (Neg); Phencyclidine, Urine Neg (Neg)
[2023-10-12 02:07] LABS: Adenovirus PCR Not Detected (NotDetected); Bordetella parapertussis PCR Not Detected (NotDetected); Bordetella pertussis PCR Not Detected (NotDetected); Chlamydia pneumoniae PCR Not Detected (NotDetected); Coronavirus 229E PCR Not Detected (NotDetected); Coronavirus CoV-2 (COVID19)PCR Not Detected (NotDetected); Coronavirus HKU1 PCR Not Detected (NotDetected); Coronavirus NL63 PCR Not Detected (NotDetected); Coronavirus OC43PCR Not Detected (NotDetected); Human Metapneumovirus PCR Not Detected (NotDetected); Influenza A PCR Not Detected (NotDetected); Influenza B PCR Not Detected (NotDetected); Mycoplasma pneumoniae PCR Not Detected (NotDetected); Parainfluenza Virus 1 PCR Not Detected (NotDetected); Parainfluenza Virus 2 PCR Not Detected (NotDetected); Parainfluenza Virus 3 PCR Not Detected (NotDetected); Parainfluenza Virus 4 PCR Not Detected (NotDetected); Respiratory Syncytial VirusPCR Not Detected (NotDetected)
[2023-10-12 02:24] LABS: Rhinovirus/Enterovirus PCR DETECTED (NotDetected)
[2023-10-12] MEDS ORDERED: GABAPENTIN 600 MG TAB PO STA (04:04)
[2023-10-12] MEDS ORDERED: LORazepam 2 MG in SYRINGE 1 ML IV PRN (04:41)
[2023-10-12] MEDS ORDERED: PROMETHAZINE HCL 6.25 MG in SODIUM CHLORIDE 0.9% 50 ML IV PRN (04:41)
[2023-10-12] MEDS ORDERED: LORazepam 3 MG in SYRINGE 1.5 ML IV PRN (04:41)
[2023-10-12] MEDS ORDERED: LACTATED RINGER'S 1,000 ML IV ONE (04:41)
[2023-10-12] MEDS ORDERED: Ativan IV Alcohol Withdrawal--Active Protocol IV PRN (04:41)
[2023-10-12] MEDS ORDERED: GABAPENTIN 1200MG ALCOHOL WITHDRAWAL LOAD PO STA (04:41)
[2023-10-12] MEDS ORDERED: LORazepam 1 MG in SYRINGE 0.5 ML IV PRN (04:41)
[2023-10-12] MEDS ORDERED: ACETAMINOPHEN 500 MG TAB PO PRN (04:41)
[2023-10-12] MEDS ORDERED: MAGNESIUM SULFATE / D5W 1 GM/100 ML BAG IV ONE (04:42)
[2023-10-12] MEDS ORDERED: PANTOprazole 80 MG in DEXTROSE 5% 100 ML IV STA (04:44)
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
[2023-10-12 05:22] LABS: Basophils # (auto) 0.03 K/uL (0.00-0.20); Basophils % (auto) 0.5 %; Eosinophils # (auto) 0.01 K/uL (0.00-0.50); Eosinophils % (auto) 0.2 %; Hematocrit (blood only) 42.1 % (42.0-52.0); Hemoglobin 14.1 g/dl (14.0-18.0); Immature Granulocytes # (auto) 0.03 K/uL (0.01-0.20); Immature Granulocytes % (auto) 0.5 %; Lymphocytes # (auto) 1.39 K/uL (1.20-3.40); Mean Corpuscular Hemoglobin 28.7 pg (25.0-34.0); Mean Corpuscular Hgb Conc 33.5 g/dL (32.0-36.0); Mean Corpuscular Volume 85.6 fL (80.0-100.0); Mean Platelet Volume 9.1 fL (9.4-12.4); Monocytes # (auto) 0.59 K/uL (0.11-0.59); Monocytes % (auto) 8.9 %; Neutrophils # (auto) 4.58 K/uL (1.40-6.50); Neutrophils % (auto) 68.9 %; Platelet Count 194 K/uL (130-400); RDW Coefficient of Variation 17.7 % (11.5-14.5); RDW Standard Deviation 55.8 fL (36.4-46.3); Red Blood Count 4.92 M/uL (4.70-6.10); White Blood Count 6.63 K/ul (4.8-10.8)
[2023-10-12 05:33] LABS: Albumin Globulin Ratio 1.2 (0.9-2); Albumin Level 4.2 gm/dl (3.4-5.0); BUN Creatinine Ratio 18.5 (10-20); Bilirubin,Total 1.2 mg/dl (0.2-1.0); Calcium 8.3 mg/dl (8.6-10.3); Creatinine Clr Calc Pharmacy 132.1 ml/min; Est GFR (Non-African American) 121.7 ml/min; Globulin 3.4 gm/dl (2.5-4.0); Potassium 3.7 mmol/L (3.5-5.1); Total Protein 7.6 gm/dl (6.0-8.3)
[2023-10-12] MEDS ORDERED: OPTIRAY 320 500ml IV ONE (05:59)
[2023-10-12] MEDS ORDERED: hydrOXYzine HCl 25 MG TAB PO PRN (06:22)
--- NOTE | 2023-10-12 06:59 | CT Scan Report ---
CT abd pelvis IV con only CLINICAL HISTORY: abd pandey, gi bleed TECHNIQUE: Helical axial images of the abdomen and pelvis were obtained and displayed. Automated dose lowering techniques and/or adjustment according to patient size were utilized for this exam. This e xam was performed with intravenous contrast. CT DOSE: 1053.74 mGy.cm COMPARISON: Comparison is made to CT abdomen pelvis 03/19/2023 FINDINGS: Lower chest: Bibasilar atelectasis versus scarring is seen. Liver: Hepatic steatosis is noted. Gallbladder and biliary tree: No calcified gallstones. Normal caliber wall. No intra- or extrahepatic biliary ductal dilation. Pancreas: Unremarkable, no focal lesions. Spleen: Unremarkable. Adrenals: Unremarkable. Kidneys and ureters: Nonobstructive nephrolithiasis is seen. Bladder: Diffuse homogeneous wall thickening is seen. Reproductive organs: Prostatomegaly is seen. Bowel: A hiatal hernia is seen. Lymph nodes Retroperitoneal: Unremarkable. Pelvic: Unremarkable. Mesenteric: Unremarkable. Peritoneum: There is a focus of fat stranding the right lower quadrant measuring 11 mm. Vessels: Unremarkable. Abdominal wall: Unremarkable. Bones: Degenerative changes are seen with minimal wedge deformity of L1. IMPRESSION: 1. Focal fat stranding in the right lower quadrant may represent epiploic appendagitis in this patie nt with abdominal pain. 2. Hepatic steatosis. 3. Small hiatal hernia. ACT 112: Negative or not required by law. Electronically signed by: Ferdinand Schaefer M.D. 10/12/2023 6:57 AM
[2023-10-12] MEDS ORDERED: ESCITALOPRAM OXALATE 10 MG TAB PO SCH (09:00)
[2023-10-12] MEDS ORDERED: HYDROCORTISONE ACETATE 25 MG SUPP PR PRN (09:03)
[2023-10-12] MEDS ORDERED: LORazepam 1 MG/1 ML SYR ED Inj Use ONE ×2 (09:08→09:13)
[2023-10-12] MEDS: FOLIC ACID 1 MG TAB PO SCH (09:19)
[2023-10-12] MEDS: MULTIVITAMIN TAB PO SCH (09:19)
[2023-10-12] MEDS: ESCITALOPRAM OXALATE 10 MG TAB PO SCH (09:19)
[2023-10-12] MEDS: THIAMINE HCL 100 MG TAB PO SCH (09:19)
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
[2023-10-12] MEDS: GABAPENTIN 600 MG TAB PO SCH ×2 (10:24→16:53)
[2023-10-12 10:32] LABS: Hemoglobin 13.8 g/dl (14.0-18.0)
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
[2023-10-12] MEDS ORDERED: LORazepam 0.5 MG TAB PO STA ×2 (14:25→19:29)
[2023-10-12] MEDS: PANTOprazole 40 MG in SYRINGE 0 ML IV SCH (20:32)
[2023-10-12 22:29] LABS: Appearance Urine Clear (Clear); Bilirubin Urine Negative (Negative); Blood Urine Negative (Negative); Color Urine Yellow; Glucose Urine UA Negative (Negative); Ketones Urine 2+ (Negative); Leukocyte Esterase Urine Negative (Negative); Nitrite Urine Negative (Negative); Protein Urine Negative (Negative); Specific Gravity Urine 1.011 (1.000-1.030); Urobilinogen Urine Negative (Negative); pH Urine 7.5 (4.5-7.5)
[2023-10-12 23:51] LABS: Adenovirus F 40/41 PCR Not Detected (NotDetected); Astrovirus PCR Not Detected (NotDetected); Campylobacter PCR Not Detected (NotDetected); Cryptosporidium PCR Not Detected (NotDetected); Cyclospora cayetanensis PCR Not Detected (NotDetected); Entamoeba histolytica PCR Not Detected (NotDetected); Enteroaggregative E.coli(EAEC) Not Detected (NotDetected); Enteropathogenic E.coli (EPEC) Not Detected (NotDetected); Enterotoxigenic E.coli (ETEC) Not Detected (NotDetected); Giardia lamblia PCR Not Detected (NotDetected); Norovirus GI/GII PCR Not Detected (NotDetected); Plesiomonas shigelloides PCR Not Detected (NotDetected); Rotavirus A PCR Not Detected (NotDetected); Salmonella PCR Not Detected (NotDetected); Sapovirus PCR Not Detected (NotDetected); Shiga-like Toxin E.coli (STEC) Not Detected (NotDetected); Shigella/Enteroinvasive E.coli Not Detected (NotDetected); Vibrio cholerae PCR Not Detected (NotDetected); Vibrio species PCR Not Detected (NotDetected); Yersinia enterocolitica PCR Not Detected (NotDetected)
[2023-10-13] LABS: Cdiff Toxin B Gene (2yr or >) Positive Cdiff Gene (Neg)
[2023-10-13 00:01] LABS: Cdiff Antigen Positive
[2023-10-13 00:09] LABS: Cdiff Toxin A+B Positive Cdiff Toxin (Negative)
[2023-10-13] MEDS: GABAPENTIN 600 MG TAB PO SCH ×3 (01:29→15:39)
[2023-10-13] MEDS: oxyCODONE HCL IR 5 MG TAB (IMMEDIATE RELEASE) PO PRN ×4 (01:29→23:01)
[2023-10-13] MEDS: VANCOMYCIN HCL 125 MG/2.5ML SOLN PO SCH ×5 (01:31→23:02)
[2023-10-13] MEDS: CHERRY SYRUP 5 ML UDP PO SCH ×5 (01:31→23:02)
--- NOTE | 2023-10-13 07:22 | Electrocardiogram Report ---
Test Reason : Blood Pressure : / mmHG Vent. Rate : 103 BPM Atrial Rate : 103 BPM P-R Int : 136 ms QRS Dur : 080 ms QT Int : 358 ms P-R-T Axes : 050 -15 018 degrees QTc Int : 468 ms Sinus tachycardia Otherwise normal ECG When compared with ECG of 14-SEP-2023 11:37, No significant change was found Confirmed by Francisco Colorado ([id number]) on 10/13/2023 7:21:43 AM Referred By: REFERRED SELF Confirmed By:Francicso Colorado
[2023-10-13] MEDS: THIAMINE HCL 100 MG TAB PO SCH (07:55)
[2023-10-13] MEDS: ESCITALOPRAM OXALATE 10 MG TAB PO SCH (07:55)
[2023-10-13] MEDS: MULTIVITAMIN TAB PO SCH (07:55)
[2023-10-13] MEDS: FOLIC ACID 1 MG TAB PO SCH (07:55)
--- NOTE | 2023-10-13 07:55 | Hospitalist Progress Note ---
Date of Service October 13, 2023 Assessment & Plan (1) UGIB (upper gastrointestinal bleed): Plan: Initially concerned for Acute GI bleeding: UGIB/LGIB combo History GERD, alcohol abuse Patient gives history of melena and hematochezia symptoms of 2 weeks duration Hemoglobin currently stable at baseline Follow H&H, transfuse PRBC if hemoglobin less than 7 and or for symptomatic anemia IV PPI started on admission GI consulted for concern for GI bleed stool PCR and c. diff ordered on admission - pending collection during eval. Pt has hemorrhoids - started on hydrocortisone supp. 25 bid Defer endoscopy work up at this time CT abdomen pelvis obtained given abdominal pain complaints discussed w/ surgery abnormal findings - CT personally reviewed by surg. team and discussed and agree with assessment of resolving epiploic appendagitis. No surgical intervention is indicated, recommend NSAIDs for discomfort. C. diff positive/ c. diff colitis - pt reports watery diarrhea - started on PO vancomycin Alcohol withdrawal PARISA S, DT precautions Gabapentin, ativan HCV status post treatment Alcoholic hepatitis, likely good prognosis with Maddrey's DF score given normal coags Prediabetes, hemoglobin A1c of 5.8 last December 2022 borderline personality disorder/mood disorder, at baseline - cont. Lexapro Past tobacco abuse DVT prophylaxis. SCDs Re: GI bleed Full code Admission and Anticipated Discharge Date Admission Date: October 12, 2023 Subjective Pt seen in follow up of alcohol withdrawal, abd. pain, found to be c. diff positive Reports having 3 watery stools yesterday, none today Abd. discomfort somewhat improved this AM tremors improved no fever, chills, chest pain or shortness of breath Review of Systems Review of Systems: All systems reviewed & are unremarkable except as noted in Subjective Physical Exam Physical Exam: GENERAL: WD/ WN young M in NAD HEENT: NC/AT, EOMI NECK : Supple, no tenderness CHEST : CTA, no tenderness HEART : rrr, no obvious murmurs ABDOMEN: Some distention,+ mild central/ RLQ abdominal tenderness EXTREMITIES : No LE swelling/tenderness, moves extremities SKIN: warm, dry NEUROLOGIC : Coherent, no facial asymmetry,+ min tremor, speech fluent, moves extremities Results & Data Results & Data Vital Signs (Past 12 Hours) Vital Signs Temp Pulse Pulse Resp BP BP Pulse Ox 10/13/23 07:28 64 10/13/23 05:17 36.6 C 68 16 149/98 H 99 10/13/23 01:20 36.8 C 71 16 147/99 H 97 10/12/23 22:00 101 H 10/12/23 21:30 10/12/23 20:49 37.5 C 85 16 153/88 H 94 O2 Del Method O2 Flow Rate 10/13/23 07:28 10/13/23 05:17 Nasal Cannula 2 10/13/23 01:20 Room Air 2 10/12/23 22:00 10/12/23 21:30 Room Air, Nasal Cannula 10/12/23 20:49 Room Air 2 Laboratory Results 10/12/23 10/12/23 Range/Units 22:00 09:51 Hgb 13.8 L (14.0-18.0) g/dl Hct 41.0 L (42.0-52.0) % Urine Color Yellow Urine Appearance Clear (Clear) Urine pH 7.5 (4.5-7.5) Ur Specific [place] 1.011 (1.000-1.030) Urine Protein Negative (Negative) Urine Glucose (UA) Negative (Negative) Urine Ketones 2+ H (Negative) Urine Blood Negative (Negative) Urine Nitrite Negative (Negative) Urine Bilirubin Negative (Negative) Urine Urobilinogen Negative (Negative) Ur Leukocyte Esterase Negative (Negative) Stl C. cayetanensis PCR Not Detected (NotDetected) Stool Rotavirus A PCR Not Detected (NotDetected) Stl Adenov F 40/41 PCR Not Detected (NotDetected) Stool Astrovirus (PCR) Not Detected (NotDetected) Stool Campylobacter PCR Not Detected (NotDetected) Stl C. diff Tox B Gene Positive Cdiff Gene H (Neg) Stl C.difficile Tox A&B Positive Cdiff Toxin A* (Negative) Stool Cryptosporidium PCR Not Detected (NotDetected) Stl E.coli Shiga Tox PCR Not Detected (NotDetected) Stl Enterotoxigenic E PCR Not Detected (NotDetected) Stool EPEC (PCR) Not Detected (NotDetected) Stool EAEC (PCR) Not Detected (NotDetected) Stl E. histolytica PCR Not Detected (NotDetected) Stool Giardia Lamblia PCR Not Detected (NotDetected) Stool Salmonella PCR Not Detected (NotDetected) Stool Sapovirus (PCR) Not Detected (NotDetected) Stl P. shigelloides PCR Not Detected (NotDetected) Stl Shigella/EIEC PCR Not Detected (NotDetected) St Y.enterocolitica PCR Not Detected (NotDetected) Stool Vibrio (PCR) Not Detected (NotDetected) Stl Vibrio cholerae PCR Not Detected (NotDetected) Stl Norovirus GI/GII PCR Not Detected (NotDetected) Medications Administered Current Inpatient Medications Acetaminophen (Acetaminophen 500 Mg Tab) 500 mg PO Q6H PRN PRN Reason: fever/pain Stop: 11/11/23 04:40 Hopson Syrup (Hopson Syrup 5 Ml Udp) 5 ml PO Q6 [facility] Stop: 10/23/23 01:14 Last Admin: 10/13/23 06:07 Dose: 5 ml Escitalopram Oxalate (Escitalopram Oxalate 10 Mg Tab) 10 mg PO QAM [facility] Stop: 11/11/23 08:59 Last Admin: 10/12/23 09:19 Dose: 10 mg Folic Acid (Folic Acid 1 Mg Tab) 1 mg PO QAM [facility] Stop: 11/11/23 08:59 Last Admin: 10/12/23 09:19 Dose: 1 mg Gabapentin (Gabapentin 600 Mg Tab) 600 mg PO Q24H [facility] Stop: 10/15/23 12:01 Gabapentin (Gabapentin 600 Mg Tab) 600 mg PO Q12H [facility] Stop: 10/14/23 18:01 Gabapentin (Gabapentin 600 Mg Tab) 600 mg PO Q8H [facility] Stop: 10/13/23 16:01 Last Admin: 10/13/23 01:29 Dose: 600 mg Hydrocortisone (Hydrocortisone Acetate 25 Mg Supp) 25 mg MD BID PRN PRN Reason: Hemorrhoids Stop: 11/11/23 09:02 Hydroxyzine HCl (Hydroxyzine Hcl 25 Mg Tab) 25 mg PO HS PRN PRN Reason: sleep, anxiety, itching Stop: 11/11/23 06:21 Promethazine HCl 6.25 mg/ (Sodium Chloride) 50.25 mls @ 201 mls/hr IV Q6H PRN PRN Reason: Nausea And Vomiting Stop: 11/11/23 04:40 Lorazepam 1 mg/ Syringe 1 mls @ 2 mls/min IV UD PRN; Protocol PRN Reason: EtOH Withdrawal AWSS Score 6,7 Stop: 11/11/23 04:40 Last Admin: 10/12/23 09:19 Dose: 2 mls/min Lorazepam 2 mg/ Syringe 2 mls @ 2 mls/min IV UD PRN; Protocol PRN Reason: EtOH Withdrawal AWSS Score 8,9 Stop: 11/11/23 04:40 Lorazepam 3 mg/ Syringe 3 mls @ 2 mls/min IV ONCE PRN; Protocol PRN Reason: EtOH Withdrawal AWSS Score 10+ Pantoprazole Sodium 40 mg/ (Syringe) 10 mls @ 5 mls/min IV BID [facility] Stop: 11/11/23 20:59 Last Admin: 10/12/23 20:32 Dose: 5 mls/min Multivit[facility] ([facility]amin Tab) [facility] Stop: 11/11/23 08:59 Last Admin: 10/12/23 09:19 Dose: 1 tab Oxycodone HCl (Oxycodone Hcl Ir 5 Mg Tab (Immediate Release)) 5 mg PO Q4H PRN PRN Reason: Pain Stop: 10/26/23 04:40 Last Admin: 10/13/23 06:07 Dose: 5 mg Thiamine HCl (Thiamine Hcl 100 Mg Tab) 100 mg PO QAM [facility] Stop: 11/11/23 08:59 Last Admin: 10/12/23 09:19 Dose: 100 mg Vancomycin HCl (Vancomycin Hcl 125 Mg/2.5ml Soln) 125 mg PO Q6 [facility]; Protocol Stop: 10/23/23 01:14 Last Admin: 10/13/23 06:07 Dose: 125 mg
[2023-10-13] MEDS: PANTOprazole 40 MG in SYRINGE 0 ML IV SCH ×2 (07:56→19:59)
[2023-10-13 08:19] LABS: Basophils # (auto) 0.03 K/uL (0.00-0.20); Basophils % (auto) 0.5 %; Eosinophils % (auto) 1.8 %; Hemoglobin 13.6 g/dl (14.0-18.0); Immature Granulocytes # (auto) 0.02 K/uL (0.01-0.20); Immature Granulocytes % (auto) 0.4 %; Lymphocytes # (auto) 0.91 K/uL (1.20-3.40); Mean Corpuscular Hemoglobin 28.9 pg (25.0-34.0); Mean Corpuscular Volume 84.9 fL (80.0-100.0); Monocytes # (auto) 0.61 K/uL (0.11-0.59); Monocytes % (auto) 10.7 %; Neutrophils # (auto) 4.01 K/uL (1.40-6.50); Neutrophils % (auto) 70.6 %; Platelet Count 154 K/uL (130-400); RDW Coefficient of Variation 16.7 % (11.5-14.5); RDW Standard Deviation 52.2 fL (36.4-46.3); Red Blood Count 4.71 M/uL (4.70-6.10); White Blood Count 5.68 K/ul (4.8-10.8)
[2023-10-13 08:40] LABS: BUN Creatinine Ratio 14.3 (10-20); Calcium 9.5 mg/dl (8.6-10.3); Creatinine Clr Calc Pharmacy 136.6 ml/min; Est GFR (African American) 142.9 ml/min; Est GFR (Non-African American) 123.3 ml/min; Magnesium 1.7 mg/dl (1.7-2.4); Phosphorus 2.9 mg/dl (2.5-4.9); Potassium 3.6 mmol/L (3.5-5.1)
[2023-10-13] MEDS: THIAMINE HCL 100 MG in SYRINGE 9 ML IV SCH (13:15)
[2023-10-13] MEDS: FOLIC ACID 1 MG in SYRINGE 9.8 ML IV SCH (13:15)
[2023-10-13 22:57] LABS: Marijuana Quant, GCMS Urine 184 ng/mL (<5)
[2023-10-14] MEDS: VANCOMYCIN HCL 125 MG/2.5ML SOLN PO SCH ×4 (05:18→23:15)
[2023-10-14] MEDS: CHERRY SYRUP 5 ML UDP PO SCH ×4 (05:19→23:15)
[2023-10-14] MEDS: GABAPENTIN 600 MG TAB PO SCH ×2 (05:19→17:07)
[2023-10-14 07:47] LABS: Hematocrit (blood only) 39.6 % (42.0-52.0); Hemoglobin 13.4 g/dl (14.0-18.0); Mean Corpuscular Hgb Conc 33.8 g/dL (32.0-36.0); Mean Corpuscular Volume 85.7 fL (80.0-100.0); Mean Platelet Volume 9.6 fL (9.4-12.4); Platelet Count 151 K/uL (130-400); RDW Coefficient of Variation 16.4 % (11.5-14.5); RDW Standard Deviation 51.7 fL (36.4-46.3); Red Blood Count 4.62 M/uL (4.70-6.10); White Blood Count 7.54 K/ul (4.8-10.8)
[2023-10-14 08:10] LABS: BUN Creatinine Ratio 12.9 (10-20); Calcium 9.4 mg/dl (8.6-10.3); Creatinine Clr Calc Pharmacy 138.8 ml/min; Est GFR (African American) 143.8 ml/min; Est GFR (Non-African American) 124.1 ml/min; Magnesium 1.6 mg/dl (1.7-2.4); Phosphorus 3.4 mg/dl (2.5-4.9); Potassium 3.4 mmol/L (3.5-5.1)
[2023-10-14] MEDS: MULTIVITAMIN TAB PO SCH (08:53)
[2023-10-14] MEDS ORDERED: MAGNESIUM SULFATE / D5W 1 GM/100 ML BAG IV ONE (08:53)
[2023-10-14] MEDS: ESCITALOPRAM OXALATE 10 MG TAB PO SCH (08:53)
[2023-10-14] MEDS ORDERED: POTASSIUM CHLORIDE CRTAB 20 MEQ TABCR PO STA ×2 (08:54→16:35)
--- NOTE | 2023-10-14 08:55 | Hospitalist Progress Note ---
Date of Service October 14, 2023 Assessment & Plan (1) UGIB (upper gastrointestinal bleed): Plan: Initially concerned for Acute GI bleeding: UGIB/LGIB combo History GERD, alcohol abuse Patient gives history of melena and hematochezia symptoms of 2 weeks duration Hemoglobin currently stable at baseline Follow H&H, transfuse PRBC if hemoglobin less than 7 and or for symptomatic anemia IV PPI started on admission GI consulted for concern for GI bleed stool PCR and c. diff ordered on admission - pending collection during eval. Pt has hemorrhoids - started on hydrocortisone supp. 25 bid Defer endoscopy work up at this time CT abdomen pelvis obtained given abdominal pain complaints discussed w/ surgery abnormal findings - CT personally reviewed by surg. team and discussed and agree with assessment of resolving epiploic appendagitis. No surgical intervention is indicated, recommend NSAIDs for discomfort. C. diff positive/ c. diff colitis - pt reports watery diarrhea - started on PO vancomycin - pt reports watery stools now resolved Alcohol withdrawal PARISA S, DT precautions Gabapentin, ativan HCV status post treatment Alcoholic hepatitis, likely good prognosis with Maddrey's DF score given normal coags Prediabetes, hemoglobin A1c of 5.8 last December 2022 borderline personality disorder/mood disorder, at baseline - cont. Lexapro Past tobacco abuse DVT prophylaxis. SCDs Re: GI bleed Full code Admission and Anticipated Discharge Date Admission Date: October 12, 2023 Subjective Pt seen in follow up of alcohol withdrawal, abd. pain, found to be c. diff positive Reports that stool is not watery anymore Abd. discomfort improved tremors improved no fever, chills, chest pain or shortness of breath Review of Systems Review of Systems: All systems reviewed & are unremarkable except as noted in Subjective Physical Exam Physical Exam: GENERAL: WD/ WN young M in NAD HEENT: NC/AT, EOMI NECK : Supple, no tenderness CHEST : CTA, no tenderness HEART : rrr, no obvious murmurs ABDOMEN: Some distention,+ mild central/ RLQ abdominal tenderness (improved) EXTREMITIES : No LE swelling/tenderness, moves extremities SKIN: warm, dry NEUROLOGIC : Coherent, no facial asymmetry,+ min tremor, speech fluent, moves extremities Results & Data Results & Data Vital Signs (Past 12 Hours) Vital Signs Temp Pulse Pulse Resp BP Pulse Ox O2 Del Method 10/14/23 07:08 37 C 69 16 148/90 H 97 Room Air 10/14/23 03:44 36.9 C 78 18 154/97 H 99 Nasal Cannula 10/13/23 23:17 83 10/13/23 22:50 36.6 C 100 H 18 148/88 H 96 Room Air O2 Flow Rate 10/14/23 07:08 10/14/23 03:44 2 10/13/23 23:17 10/13/23 22:50 Laboratory Results 10/14/23 10/12/23 Range/Units 06:46 00:05 WBC 7.54 (4.8-10.8) K/ul RBC 4.62 L (4.70-6.10) M/uL Hgb 13.4 L (14.0-18.0) g/dl Hct 39.6 L (42.0-52.0) % MCV 85.7 (80.0-100.0) fL MCH 29.0 (25.0-34.0) pg MCHC 33.8 (32.0-36.0) g/dL RDW Std Deviation 51.7 H (36.4-46.3) fL RDW Coeff of Luke 16.4 H (11.5-14.5) % Plt Count 151 (130-400) K/uL MPV 9.6 (9.4-12.4) fL Sodium 134 L (136-145) mmol/L Potassium 3.4 L (3.5-5.1) mmol/L Chloride 97 L (98-107) mmol/L Carbon Dioxide 28 (21-32) mmol/L Anion Gap 9 (3-11) BUN 8 (6-23) mg/dl Creatinine 0.62 (0.6-1.4) mg/dl Est Cr Clr Drug Dosing 138.8 ml/min Est GFR ( Amer) 143.8 ml/min Est GFR (Non-Af Amer) 124.1 ml/min BUN/Creatinine Ratio 12.9 (10-20) Glucose 114 H (70-99(Fasting)) mg/dl Calcium 9.4 (8.6-10.3) mg/dl Phosphorus 3.4 (2.5-4.9) mg/dl Magnesium 1.6 L (1.7-2.4) mg/dl U Marijuana THC Carboxy 184 H (<5) ng/mL Drug Screen Comment SEE NOTE Medications Administered Current Inpatient Medications Acetaminophen (Acetaminophen 500 Mg Tab) 500 mg PO Q6H PRN PRN Reason: fever/pain Stop: 11/11/23 04:40 Hopson Syrup (Hopson Syrup 5 Ml Udp) 5 ml PO Q6 [facility] Stop: 10/23/23 01:14 Last Admin: 10/14/23 05:19 Dose: 5 ml Escitalopram Oxalate (Escitalopram Oxalate 10 Mg Tab) 10 mg PO QAM [facility] Stop: 11/11/23 08:59 Last Admin: 10/14/23 08:53 Dose: 10 mg Folic Acid (Folic Acid 1 Mg Tab) 1 mg PO QAM [facility] Stop: 11/11/23 08:59 Last Admin: 10/13/23 07:55 Dose: 1 mg Gabapentin (Gabapentin 600 Mg Tab) 600 mg PO Q24H [facility] Stop: 10/15/23 12:01 Gabapentin (Gabapentin 600 Mg Tab) 600 mg PO Q12H [facility] Stop: 10/14/23 18:01 Last Admin: 10/14/23 05:19 Dose: 600 mg Hydrocortisone (Hydrocortisone Acetate 25 Mg Supp) 25 mg GA BID PRN PRN Reason: Hemorrhoids Stop: 11/11/23 09:02 Hydroxyzine HCl (Hydroxyzine Hcl 25 Mg Tab) 25 mg PO HS PRN PRN Reason: sleep, anxiety, itching Stop: 11/11/23 06:21 Promethazine HCl 6.25 mg/ (Sodium Chloride) 50.25 mls @ 201 mls/hr IV Q6H PRN PRN Reason: Nausea And Vomiting Stop: 11/11/23 04:40 Lorazepam 1 mg/ Syringe 1 mls @ 2 mls/min IV UD PRN; Protocol PRN Reason: EtOH Withdrawal AWSS Score 6,7 Stop: 11/11/23 04:40 Last Admin: 10/12/23 09:19 Dose: 2 mls/min Lorazepam 2 mg/ Syringe 2 mls @ 2 mls/min IV UD PRN; Protocol PRN Reason: EtOH Withdrawal AWSS Score 8,9 Stop: 11/11/23 04:40 Lorazepam 3 mg/ Syringe 3 mls @ 2 mls/min IV ONCE PRN; Protocol PRN Reason: EtOH Withdrawal AWSS Score 10+ Pantoprazole Sodium 40 mg/ (Syringe) 10 mls @ 5 mls/min IV BID [facility] Stop: 11/11/23 20:59 Last Admin: 10/13/23 19:59 Dose: 5 mls/min Thiamine HCl 100 mg/ Syringe 10 mls @ 2 mls/min IV QAM [facility] Stop: 11/12/23 10:29 Last Admin: 10/13/23 13:15 Dose: 2 mls/min Folic Acid 1 mg/ Syringe 10 mls @ 5 mls/min IV QAM [facility] Stop: 11/12/23 10:29 Last Admin: 10/13/23 13:15 Dose: 5 mls/min Magnesium Sulfate/Dextrose (Magnesium Sulfate / D5w) 1 gm in 100 mls @ 50 mls/hr IV ONE ONE Stop: 10/14/23 10:52 Multivitamins (Multivitamin Tab) 1 tab PO QAM [facility] Stop: 11/11/23 08:59 Last Admin: 10/14/23 08:53 Dose: 1 tab Oxycodone HCl (Oxycodone Hcl Ir 5 Mg Tab (Immediate Release)) 5 mg PO Q4H PRN PRN Reason: Pain Stop: 10/26/23 04:40 Last Admin: 10/13/23 23:01 Dose: 5 mg Potassium Chloride (Potassium Chloride Crtab 20 Meq Tabcr) 40 meq PO NOW STA Stop: 10/14/23 08:55 Thiamine HCl (Thiamine Hcl 100 Mg Tab) 100 mg PO QAM [facility] Stop: 11/11/23 08:59 Last Admin: 10/13/23 07:55 Dose: 100 mg Vancomycin HCl (Vancomycin Hcl 125 Mg/2.5ml Soln) 125 mg PO Q6 [facility]; Protocol Stop: 10/23/23 01:14 Last Admin: 10/14/23 05:18 Dose: 125 mg
[2023-10-14] MEDS: FOLIC ACID 1 MG in SYRINGE 9.8 ML IV SCH (11:26)
[2023-10-14] MEDS: PANTOprazole 40 MG in SYRINGE 0 ML IV SCH ×2 (11:26→20:16)
[2023-10-14] MEDS: THIAMINE HCL 100 MG in SYRINGE 9 ML IV SCH (11:26)
[2023-10-14] MEDS: oxyCODONE HCL IR 5 MG TAB (IMMEDIATE RELEASE) PO PRN ×2 (14:44→20:16)
[2023-10-15] MEDS: CHERRY SYRUP 5 ML UDP PO SCH ×2 (06:30→11:35)
[2023-10-15] MEDS: VANCOMYCIN HCL 125 MG/2.5ML SOLN PO SCH ×2 (06:30→11:36)
[2023-10-15 06:42] LABS: Hematocrit (blood only) 41.7 % (42.0-52.0); Hemoglobin 13.6 g/dl (14.0-18.0); Mean Corpuscular Hemoglobin 28.3 pg (25.0-34.0); Mean Corpuscular Hgb Conc 32.6 g/dL (32.0-36.0); Mean Corpuscular Volume 86.9 fL (80.0-100.0); Mean Platelet Volume 10.1 fL (9.4-12.4); Platelet Count 145 K/uL (130-400); RDW Coefficient of Variation 16.3 % (11.5-14.5); RDW Standard Deviation 51.6 fL (36.4-46.3)
[2023-10-15 06:59] LABS: BUN Creatinine Ratio 12.7 (10-20); Calcium 9.5 mg/dl (8.6-10.3); Creatinine Clr Calc Pharmacy 109.2 ml/min; Est GFR (African American) 130.2 ml/min; Est GFR (Non-African American) 112.3 ml/min; Magnesium 1.7 mg/dl (1.7-2.4); Phosphorus 3.6 mg/dl (2.5-4.9); Potassium 3.8 mmol/L (3.5-5.1)
[2023-10-15] MEDS: oxyCODONE HCL IR 5 MG TAB (IMMEDIATE RELEASE) PO PRN ×2 (07:53→12:30)
[2023-10-15] MEDS: THIAMINE HCL 100 MG in SYRINGE 9 ML IV SCH (07:54)
[2023-10-15] MEDS: MULTIVITAMIN TAB PO SCH (07:54)
[2023-10-15] MEDS: ESCITALOPRAM OXALATE 10 MG TAB PO SCH (07:54)
[2023-10-15] MEDS: PANTOprazole 40 MG in SYRINGE 0 ML IV SCH (07:55)
[2023-10-15] MEDS: FOLIC ACID 1 MG in SYRINGE 9.8 ML IV SCH (07:57)
[2023-10-15] MEDS ORDERED: MAGNESIUM SULFATE / D5W 1 GM/100 ML BAG IV ONE (09:42)
--- NOTE | 2023-10-15 10:10 | Discharge Summary ---
Date of Service October 15, 2023 Admission HPI Per Admitting Provider History obtained from patient and records. Medical history significant for History obtained from patient and records. Medical history significant for HCV status post treatment, GERD, hepatic steatosis, history anal fissure, prediabetes, borderline personality disorder/mood disorder, chronic anemia (baseline hemoglobin of 13), latent TB, alcohol abuse, past tobacco abuse. Recent confinement last month for alcohol withdrawal. 2 weeks history of achy central abdominal pain associated melena/hematochezia. Bilious emesis. No chest pain, no SOB, no headache symptoms. No fever, no chills. Patient told by PCP to take antacid. Flulike symptoms noted yesterday. Patient came to ER requesting to detox. No prior history of alcohol withdrawal seizures. 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 diff colitis Alcohol withdrawal Discharge Exam GENERAL: WD/ WN young M in NAD HEENT: NC/AT, EOMI NECK : Supple, no tenderness CHEST : CTA, no tenderness HEART : rrr, no obvious murmurs ABDOMEN: Some distention,+ mild central/ RLQ abdominal tenderness (improved) EXTREMITIES : No LE swelling/tenderness, moves extremities SKIN: warm, dry NEUROLOGIC : Coherent, no facial asymmetry, no tremor (resolved), speech fluent, moves extremities Discharge Data Allergies Allergy/AdvReac Type Severity Reaction Status Date / Time No Known Allergies Allergy Verified 10/12/23 00:52 Consultations 10/12/23 05:06 ED Decision to Admit Stat 10/12/23 06:22 Consult Gastroenterology Routine 10/12/23 10:23 Consult General Surgery Routine Ordered Studies 10/12/23 04:36 CT Abd and Pelvis [CT abd pelvis IV con only] Stat FINDINGS: Lower chest: Bibasilar atelectasis versus scarring is seen. Liver: Hepatic steatosis is noted. Gallbladder and biliary tree: No calcified gallstones. Normal caliber wall. No intra- or extrahepatic biliary ductal dilation. Pancreas: Unremarkable, no focal lesions. Spleen: Unremarkable. Adrenals: Unremarkable. Kidneys and ureters: Nonobstructive nephrolithiasis is seen. Bladder: Diffuse homogeneous wall thickening is seen. Reproductive organs: Prostatomegaly is seen. Bowel: A hiatal hernia is seen. Lymph nodes Retroperitoneal: Unremarkable. Pelvic: Unremarkable. Mesenteric: Unremarkable. Peritoneum: There is a focus of fat stranding the right lower quadrant measuring 11 mm. Vessels: Unremarkable. Abdominal wall: Unremarkable. Bones: Degenerative changes are seen with minimal wedge deformity of L1. IMPRESSION: 1. Focal fat stranding in the right lower quadrant may represent epiploic appendagitis in this patient with abdominal pain. 2. Hepatic steatosis. 3. Small hiatal hernia. Hospital Course (1) UGIB (upper gastrointestinal bleed): Initially concerned for Acute GI bleeding: UGIB/LGIB combo History GERD, alcohol abuse Patient gives history of melena and hematochezia symptoms of 2 weeks duration Hemoglobin currently stable at baseline Follow H&H, transfuse PRBC if hemoglobin less than 7 and or for symptomatic anemia IV PPI started on admission GI consulted for concern for GI bleed stool PCR and c. diff ordered on admission - pending collection during GI eval. Pt has hemorrhoids - started on hydrocortisone supp. 25 bid prn Defer endoscopy work up at this time CT abdomen pelvis obtained given abdominal pain complaints discussed w/ surgery abnormal findings - CT personally reviewed by surg. team and discussed and agree with assessment of resolving epiploic appendagitis. No surgical intervention is indicated, recommend NSAIDs for discomfort. C. diff positive/ c. diff colitis - pt reports watery diarrhea - started on PO vancomycin - finish 10 day course - pt reports watery stools now resolved Alcohol withdrawal PARISA S, DT precautions Gabapentin, ativan HCV status post treatment Alcoholic hepatitis, likely good prognosis with Maddrey's DF score given normal coags Prediabetes, hemoglobin A1c of 5.8 last December 2022 borderline personality disorder/mood disorder, at baseline - cont. Lexapro Past tobacco abuse Total Time Total Time Spent Total Time Spent (In Minutes): 40 Discharge Plan Discharge Items Patient Disposition: Home - Self-Care Reason For Visit: ANEMIA, GI BLEED, ETOH WITHDRAWAL Discharge Diagnosis: C. diff colitis Alcohol withdrawal Activity: Per Instructions section Non-emergency contact: Primary Care Provider Call non-emergency contact if: you have any medication questions and your symptoms worsen Follow-up/Referrals: [facility] [Primary Care Provider] - Diet: Regular Addtl Attending Provider Instructions: Follow up with primary care physician within 1 week. Take vancomycin (antibiotic) 4 times a day for a week. Make sure to wash your hands with soap and water. It is crucial that you stop drinking alcohol. Pending Studies at Discharge: No Stand-Alone Forms: My [facility] [place], Smoking Cessation Medications and DC Order Prescriptions: New vancomycin 125 mg capsule 125 mg PO Q6H 7 Days Qty: 28 0RF oxycodone 5 mg tablet 5 mg PO DAILY PRN (Reason: pain) Qty: 4 0RF Continued escitalopram oxalate 10 mg tablet 10 mg PO QAM Rx Instructions: per 1st folic acid 1 mg Tablet 1 mg PO QAM Qty: 10 0RF multivitamin Tablet 1 tab PO QAM cholecalciferol (vitamin D3) [Vitamin D3] 25 mcg (1,000 unit) Capsule 50 mcg PO QAM Rx Instructions: Per 1st thiamine HCl (vitamin B1) 100 mg Tablet 100 mg PO QAM Qty: 30 0RF folic acid 1 mg Tablet 1 mg PO QAM Qty: 30 0RF Rx Instructions: per dr 1st pantoprazole 40 mg tablet,delayed release (DR/EC) 40 mg PO Q12H PRN (Reason: Acid Reflux) zinc acetate 50 mg (zinc) Capsule 50 mg PO DAILY Discontinued escitalopram oxalate 10 mg Tablet 10 mg PO QAM Qty: 10 0RF gabapentin 600 mg Tablet 600 mg PO Q12H Qty: 4 0RF hydroxyzine HCl 25 mg tablet 25 mg PO HS PRN (Reason: sleep, anxiety, itching) Qty: 7 0RF Discharge Orders: Discharge Order (Routine); Ordered 10/15/23 Ordered By: Jake Hess Admission Data Admit Date/Time: 10/12/23 04:39 Attending Provider: Jake Hess Admit Provider: Hua Nieto Primary Care Provider: [facility] Other Providers: Hua Nieto; Tylor Santamaria; Yandel Walton; Oriana Du; Zoila Esteban; Janeen Serra; Jory Hernandez; Vignesh Gaitan; Ankush Walker; Keo Bangura; Jodie Alfredo; Dane Breen; Jaylen Noble; Niya Yusuf; Ayaka Camara; Gabriela Barksdale; Shauna Mitchell; Rocael Coleman; Alexei Hunt; Fred Tineo; Jami Nice; Vu Joseph Jr; Dylon Vo; [facility]
[2023-10-15] MEDS ORDERED: GABAPENTIN 600 MG TAB PO SCH (12:00)
== END 2023-10-15 12:35 | disposition home or self-care (01) | DRG 897 ==
LOC: ED 23:06 → EDINP 10-12 04:39 → 2N 10-12 06:22

== ENCOUNTER 2023-11-13 05:02 | Inpatient (IN) ==
[2023-11-13] MEDS ORDERED: SODIUM CHLORIDE 0.9% 1,000 ML IV STA (05:10)
[2023-11-13] MEDS ORDERED: FAMOTIDINE 20MG IV PUSH 20 MG/5 ML SYR IV STA (05:31)
[2023-11-13] MEDS ORDERED: ONDANSETRON INJ 2 MG/ML 2 ML VIAL IV STA (05:31)
[2023-11-13] MEDS ORDERED: KETOROLAC 30 MG/ML VIAL IV STA (06:26)
[2023-11-13] MEDS ORDERED: SODIUM CHLORIDE 0.9% 1,000 ML IV ONE (06:28)
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
[2023-11-13 06:32] LABS: Albumin Globulin Ratio 1.1 (0.9-2); Albumin Level 4.6 gm/dl (3.4-5.0); BUN Creatinine Ratio 9.3 (10-20); Bilirubin,Total 1.3 mg/dl (0.2-1.0); Calcium 9.2 mg/dl (8.6-10.3); Creatinine Clr Calc Pharmacy 100.8 ml/min; Est GFR (African American) 125.7 ml/min; Est GFR (Non-African American) 108.5 ml/min; Magnesium 1.2 mg/dl (1.7-2.4); Potassium 3.1 mmol/L (3.5-5.1); Total Protein 8.6 gm/dl (6.0-8.3)
[2023-11-13 06:34] LABS: Basophils # (auto) 0.05 K/uL (0.00-0.20); Basophils % (auto) 0.4 %; Hematocrit (blood only) 42.8 % (42.0-52.0); Hemoglobin 14.3 g/dl (14.0-18.0); Immature Granulocytes # (auto) 0.04 K/uL (0.01-0.20); Immature Granulocytes % (auto) 0.3 %; Lymphocytes # (auto) 0.93 K/uL (1.20-3.40); Lymphocytes % (auto) 7.9 %; Mean Corpuscular Hemoglobin 28.5 pg (25.0-34.0); Mean Corpuscular Hgb Conc 33.4 g/dL (32.0-36.0); Mean Corpuscular Volume 85.3 fL (80.0-100.0); Mean Platelet Volume 9.3 fL (9.4-12.4); Monocytes # (auto) 1.13 K/uL (0.11-0.59); Monocytes % (auto) 9.6 %; Neutrophils # (auto) 9.65 K/uL (1.40-6.50); Neutrophils % (auto) 81.8 %; Platelet Count 205 K/uL (130-400); RDW Standard Deviation 52.5 fL (36.4-46.3); Red Blood Count 5.02 M/uL (4.70-6.10)
[2023-11-13 06:46] LABS: Appearance Urine Clear (Clear); Bacteria Urine Automated Negative (Negative); Blood Urine Negative (Negative); Color Urine Orange; Epithelial Cell Urine Auto >30 /lpf (0-5); Glucose Urine UA Negative (Negative); Ketones Urine Trace (Negative); Leukocyte Esterase Urine 1+ (Negative); Nitrite Urine Positive (Negative); Protein Urine 3+ (Negative); RBC Urine Automated 0-4 /hpf (0-4); Specific Gravity Urine 1.035 (1.000-1.030); Urobilinogen Urine Negative (Negative); pH Urine 6.5 (4.5-7.5)
[2023-11-13 06:47] LABS: Bilirubin Urine 1+ (Negative)
[2023-11-13] MEDS ORDERED: POTASSIUM CHLORIDE / WTR 10 MEQ/100 ML PLCT IV ONE (06:59)
[2023-11-13] MEDS ORDERED: OPTIRAY 320 500ml IV ONE (07:07)
[2023-11-13] MEDS: MAGNESIUM SULFATE / D5W 1 GM/100 ML BAG IV SCH ×4 (07:56→17:49)
--- NOTE | 2023-11-13 08:22 | CT Scan Report ---
ABDOMEN AND PELVIS CT WITH IV CONTRAST CT DOSE: 986.97 mGy.cm HISTORY: Generalized abdominal pain. TECHNIQUE: Multiaxial CT images of the abdomen and pelvis were performed following the use of intrave nous contrast. A dose lowering technique was utilized adhering to the principles of ALARA. COMPARISON STUDY: Abdomen and pelvis CT 11/03/2023. FINDINGS: The lung bases are clear. No pneumoperitoneum. No pneumatosis. No acute fractures identifie d. Distal esophageal wall thickening has improved. Hepatic steatosis. The main portal vein is patent. The gallbladder, pancreas, spleen, and adrenal glands are unremarkable. The kidneys enhance normally . Right-sided nephrolithiasis again noted. No ureteral stones. No hydronephrosis. No retroperitoneal lymphadenopathy. Normal caliber abdominal aorta. No pelvic free fluid or pelvic lymphadenopathy. Ther e is mild bladder wall thickening. This remains unchanged. No dilated loops of bowel to suggest an ob struction. Mild submucosal fat deposition within the ascending colon/cecum with improved bowel wall t hickening. No associated pericolonic fat stranding. There is mild rectal wall thickening/enhancement. This has progressed in the interval. IMPRESSION: 1. Rectal wall thickening/enhancement. This suggests a nonspecific proctitis. Follow-up endoscopy rec ommended to exclude the possibility of underlying rectal lesion. 2. Mild bladder wall thickening again noted. Recommend correlation with urinalysis to exclude a cysti tis. 3. Interval improvement in the distal esophageal and proximal colonic thickening compared to the prio r study. 4. No evidence for bowel obstruction. 5. Right-sided nephrolithiasis. No hydronephrosis. 6. Hepatic steatosis again noted. ACT 112: Negative or not required by law. Electronically signed by: Luigi Broussard M.D. 11/13/2023 8:19 AM
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
[2023-11-13] MEDS ORDERED: GABAPENTIN 1200MG ALCOHOL WITHDRAWAL LOAD PO STA (10:18)
[2023-11-13] MEDS ORDERED: GABAPENTIN 600 MG TAB PO ONE (10:45)
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
[2023-11-13] MEDS ORDERED: LORazepam 1 MG in SYRINGE 0.5 ML IV PRN (14:34)
[2023-11-13] MEDS ORDERED: POLYETHYLENE (MIRALAX) 17 GM PACK PO PRN (14:34)
[2023-11-13] MEDS ORDERED: ACETAMINOPHEN 325 MG TAB PO PRN (14:34)
[2023-11-13] MEDS ORDERED: cefTRIAXone SODIUM 1,000 MG in DEXTROSE 5 % MINI-B 50 ML IV SCH (14:45)
[2023-11-13] MEDS: ENOXAPARIN INJ 40 MG/0.4 ML SYR SQ SCH (16:10)
[2023-11-13] MEDS ORDERED: LACTATED RINGER'S 1,000 ML IV SCH (16:30)
[2023-11-13] MEDS ORDERED: PIPERACILLIN/TAZOBACTAM 4.5 GM in DEXTROSE 5% MINI-B 100 ML IV STA (16:30)
[2023-11-13 16:31] LABS: BUN Creatinine Ratio 9.1 (10-20); Calcium 8.7 mg/dl (8.6-10.3); Creatinine Clr Calc Pharmacy 131.3 ml/min; Est GFR (African American) 140.2 ml/min; Est GFR (Non-African American) 120.9 ml/min; Potassium 3.1 mmol/L (3.5-5.1)
[2023-11-13] MEDS: GABAPENTIN 600 MG TAB PO SCH ×2 (16:54→21:58)
[2023-11-13] MEDS: POTASSIUM CHLORIDE / WTR 10 MEQ/100 ML PLCT IV SCH ×2 (18:17→19:21)
[2023-11-13] MEDS: hydrOXYzine HCl 25 MG TAB PO SCH (20:44)
[2023-11-13] MEDS: POTASSIUM CHLORIDE CRTAB 20 MEQ TABCR PO SCH (20:44)
[2023-11-13] MEDS: PIPERACILLIN/TAZOBACTAM 4.5 GM in DEXTROSE 5% MINI-B 100 ML IV SCH (22:00)
[2023-11-14] MEDS: PIPERACILLIN/TAZOBACTAM 4.5 GM in DEXTROSE 5% MINI-B 100 ML IV SCH ×3 (05:35→19:59)
[2023-11-14] MEDS: GABAPENTIN 600 MG TAB PO SCH ×3 (05:36→20:01)
--- NOTE | 2023-11-14 06:22 | Electrocardiogram Report ---
Test Reason : Blood Pressure : / mmHG Vent. Rate : 103 BPM Atrial Rate : 103 BPM P-R Int : 124 ms QRS Dur : 076 ms QT Int : 374 ms P-R-T Axes : 053 034 027 degrees QTc Int : 489 ms Sinus tachycardia Otherwise normal ECG When compared with ECG of 03-NOV-2023 06:19, T wave inversion no longer evident in Anterior leads Confirmed by Eder Diaz [id number]) on 11/14/2023 6:22:43 AM Referred By: Confirmed By:Eder Diaz
[2023-11-14 06:23] LABS: Total Protein Urine Random 29.6 mg/dl (0-11.9)
[2023-11-14 06:28] LABS: Creatinine Urine Random 172.5 mg/dl; Protein Creatinine Ratio Urine 0.2 (0-0.2)
[2023-11-14 06:32] LABS: Amphetamines+Metham, Urine Neg (Neg); Barbiturates, Urine Neg (Neg); Benzodiazepine, Urine Neg (Neg); Cocaine, Urine Neg (Neg); MDMA (Ecstacy), Urine Neg (Neg); Marijuana, Urine Pos (Neg); Methadone, Urine Neg (Neg); Opiate, Urine Neg (Neg); Phencyclidine, Urine Neg (Neg)
--- NOTE | 2023-11-14 07:44 | Hospitalist Progress Note ---
Date of Service November 14, 2023 Assessment & Plan (1) Sepsis: (2) Acidosis, lactic: (3) Abdominal pain: (4) Esophagitis: (5) Hypomagnesemia: (6) Acute hypokalemia: (7) Alcohol withdrawal: Plan Mr. El Gillis is a 38 year old gentleman with a past medical history rem arkable for HCV s/p treatment, hepatic steatosis, chronic alcohol misuse, prediabetes, recent c. diff colilits, recent epiploic appendigitis, esophagitis, presented to [facility] ED due to acute right lower quadrant pain. Patient admitted for eval and management of such, given notably elevated lactate and multiple electrolyte abnormalities. Sepsis [leukocytosis, tachycardia, lactate] Acute abdominal pain, recurrent RLQ Abnormal CT of Abdomen and Pelvis Recent C Diff colilitis History of epiploic appendagitis CT abdomen pelvis: resolution of prior findings, ?cystitis on imaging and proctitis Looser stools, increased frequency, but not watery and without urgency Completed recent 10 day course of PO vanc for c diff leukocytosis +shift -Gen surg consult given continued RLQ pain: recent resolving epiploic appendagitis. No surgical intervention is indicated -No urinary complaints, s/p CTX empirically, infectious work up pending -Advance diet as tolerated -Needs OP GI follow up -Trend lactate, encourage PO intake 11/14 yesterday lactate up - and admitting provider increased IVF and switched to zosyn and also ordered mesenteric US -results pending, repeat lactate 1.7 -overall pt is feeling better, tolerating diet, pain is controlled - stool studies - negative Elevated Total protein Normal AG ratio, potentially elevated iso dehydration, historic trend reveal resolution after IVF Trend CMP Alcohol withdrawal Chronic Alcohol Misuse Mild transaminitis Chronic hepatic steatosis HCV status post treatment -Liver enzymes historically elevated to some degree, lower than prior admission -Trend CMP -AWSS, gabapentin, ativan while admitted -Encouraged continued efforts for cessation -GI follow up for steatosis -Continue thiamine and folic supplements Hypokalemia Chronic Hypomagnesemia -Admit on tele -Replace mag followed by potassium -Monitor lytes, goal mag >2, K >4 history of opioid abuse -UDS Prediabetes hemoglobin A1c of 5.8 last December 2022 current Hgb A1C 5.9% Grade-D Esophagitis -Last scope 12/2022 -Continue protonix Elevated BP Chronic Proteinuria -iso alcohol withdrawal, last drink 11/11--denies any ongoing antihypertensive, does not check at home -historically positive, will quantify with random pr/cr ratio, protein/Cr ratio 0.2 Borderline personality disorder/mood disorder -Cont. Lexapro and hydroxyzine Past tobacco abuse Encouraged continued cessation DVT lovenox Diet regular, as tolerated Admit to [facility] tele Admission and Anticipated Discharge Date Admission Date: November 13, 2023 Subjective Pt seen in follow up of abd. pain Currently sitting up in bed in NAD, denies any more nausea or vomiting and he is able to tolerate diet Pain is controlled no chest pain or shortness of breath Review of Systems Review of Systems: All systems reviewed & are unremarkable except as noted in Subjective Physical Exam Physical Exam: GENERAL: WD/WN M in NAD HEENT: NC, AT. MMM. EOMI, clear conjunctiva NECK: Supple HEART: Normal rate and regular rhythm, normal S1/S1, no m/r/g LUNGS: CTAB, moving air well. No crackles or wheezes are heard. ABDOMEN: Soft, nondistended, + bowel sounds, tenderness in RLQ with deep palpation BACK: No CVAT, no obvious deformity. EXTREMITIES: Without cyanosis, clubbing or edema. NEUROLOGICAL: Alert and oriented, answers appropriately, no facial asymmetry, moving all 4 extremities. Skin: Warm and dry without any rash. Results & Data Results & Data Vital Signs (Past 12 Hours) Vital Signs Temp Pulse Resp BP BP Pulse Ox O2 Del Method 11/14/23 03:54 36.7 C 79 18 131/87 95 Room Air 11/14/23 00:38 36.6 C 92 H 20 152/112 H 95 Room Air 11/13/23 20:18 36.9 C 76 20 132/94 95 Room Air Laboratory Results 11/14/23 11/13/23 11/13/23 Range/Units 05:45 20:57 17:53 Sodium (136-145) mmol/L Potassium (3.5-5.1) mmol/L Chloride (98-107) mmol/L Carbon Dioxide (21-32) mmol/L Anion Gap (3-11) BUN (6-23) mg/dl Creatinine (0.6-1.4) mg/dl Est Cr Clr Drug Dosing ml/min Est GFR ( Amer) ml/min Est GFR (Non-Af Amer) ml/min BUN/Creatinine Ratio (10-20) Glucose (70-99(Fasting)) mg/dl Lactate 1.7 2.8 H* (0.4-2.0) mmol/L Calcium (8.6-10.3) mg/dl Magnesium (1.7-2.4) mg/dl Ur Random Creatinine 172.5 mg/dl U Random Total Protein 29.6 H (0-11.9) mg/dl Protein/Creatinin Ratio 0.2 (0-0.2) Urine Opiates Screen Neg (Neg) Ur Methadone, Qual Neg (Neg) Urine Barbiturates Neg (Neg) Ur Phencyclidine (PCP) Neg (Neg) U Amphetamin/Meth Scrn Neg (Neg) MDMA (Ecstasy) Screen Neg (Neg) U Benzodiazepines Scrn Neg (Neg) Ur Cocaine Metabolite Neg (Neg) U Marijuana (THC) Screen Pos H (Neg) U Marijuana THC Carboxy Pending Drug Screen Comment Pending 11/13/23 11/13/23 11/13/23 Range/Units 15:55 11:20 08:55 Sodium 135 L (136-145) mmol/L Potassium 3.1 L (3.5-5.1) mmol/L Chloride 99 (98-107) mmol/L Carbon Dioxide 25 (21-32) mmol/L Anion Gap 11 (3-11) BUN 6 (6-23) mg/dl Creatinine 0.66 (0.6-1.4) mg/dl Est Cr Clr Drug Dosing 131.3 ml/min Est GFR ( Amer) 140.2 ml/min Est GFR (Non-Af Amer) 120.9 ml/min BUN/Creatinine Ratio 9.1 L (10-20) Glucose 122 H (70-99(Fasting)) mg/dl Lactate 2.6 H* 2.3 H* 3.1 H* (0.4-2.0) mmol/L Calcium 8.7 (8.6-10.3) mg/dl Magnesium 1.8 (1.7-2.4) mg/dl Ur Random Creatinine mg/dl U Random Total Protein (0-11.9) mg/dl Protein/Creatinin Ratio (0-0.2) Urine Opiates Screen (Neg) Ur Methadone, Qual (Neg) Urine Barbiturates (Neg) Ur Phencyclidine (PCP) (Neg) U Amphetamin/Meth Scrn (Neg) MDMA (Ecstasy) Screen (Neg) U Benzodiazepines Scrn (Neg) Ur Cocaine Metabolite (Neg) U Marijuana (THC) Screen (Neg) U Marijuana THC Carboxy Drug Screen Comment Medications Administered Current Inpatient Medications Acetaminophen (Acetaminophen 325 Mg Tab) 650 mg PO Q4H PRN PRN Reason: Pain or Fever Stop: 12/13/23 14:33 Enoxaparin Sodium (Enoxaparin Inj 40 Mg/0.4 Ml Syr) [facility] Stop: 12/13/23 15:29 Last Admin: 11/13/23 16:10 Dose: 40 mg Escitalopram Oxalate (Escitalopram Oxalate 10 Mg Tab) [facility] [place] Stop: 12/14/23 08:59 Folic Acid (Folic Acid 1 Mg Tab) [facility] [place] Stop: 12/14/23 08:59 Gabapentin (Gabapentin 600 Mg Tab) 600 mg PO Q24H [facility] Stop: 11/16/23 22:01 Gabapentin (Gabapentin 600 Mg Tab) 600 mg PO Q12H [facility] Stop: 11/15/23 22:01 Gabapentin (Gabapentin 600 Mg Tab) 600 mg PO Q8H [facility] Stop: 11/14/23 22:01 Last Admin: 11/14/23 05:36 Dose: 600 mg Hydroxyzine HCl (Hydroxyzine Hcl 25 Mg Tab) 25 mg PO HS [facility] Stop: 12/13/23 20:59 Last Admin: 11/13/23 20:44 Dose: 25 mg Piperacillin Sod/Tazobactam (Sod 4.5 gm/ Dextrose) 100 mls @ 25 mls/hr IV Q8H [facility]; Protocol Stop: 11/15/23 21:59 Last Admin: 11/14/23 05:35 Dose: 25 mls/hr Magnesium Oxide (Magnesium Oxide 400 Mg Tab) 200 mg PO DAILY [facility] Stop: 12/14/23 08:59 Multivitamins (Multivitamin Tab) [facility] [place] Stop: 12/14/23 08:59 Pantoprazole Sodium (Pantoprazole 40 Mg Tab) 40 mg PO QAM [facility] Stop: 12/14/23 08:59 Polyethylene Glycol (Polyethylene (Miralax) 17 Gm Pack) 17 gm PO DAILY PRN PRN Reason: Constipation Stop: 12/13/23 14:33 Potassium Chloride (Potassium Chloride Crtab 20 Meq Tabcr) 20 meq PO BID [facility]AN Stop: 12/13/23 20:59 Last Admin: 11/13/23 20:44 Dose: 20 meq Thiamine HCl (Thiamine Hcl 100 Mg Tab) 100 mg PO QAM [facility]AN Stop: 12/14/23 08:59 Vitamin D (Cholecalciferol 1,000 Units 25 Mcg Tab) 1,000 units PO QAM [facility]YAN Stop: 12/14/23 08:59 Zinc Sulfate (Zinc Sulfate 220 Mg Capsule) 220 mg PO DAILY [facility]AN Stop: 12/14/23 08:59
[2023-11-14 07:51] LABS: Hematocrit (blood only) 39.3 % (42.0-52.0); Hemoglobin 12.8 g/dl (14.0-18.0); Mean Corpuscular Hemoglobin 28.2 pg (25.0-34.0); Mean Corpuscular Hgb Conc 32.6 g/dL (32.0-36.0); Mean Corpuscular Volume 86.6 fL (80.0-100.0); Mean Platelet Volume 9.4 fL (9.4-12.4); Platelet Count 166 K/uL (130-400); RDW Coefficient of Variation 16.9 % (11.5-14.5); RDW Standard Deviation 53.2 fL (36.4-46.3); Red Blood Count 4.54 M/uL (4.70-6.10); White Blood Count 5.52 K/ul (4.8-10.8)
[2023-11-14 08:27] LABS: Albumin Globulin Ratio 1.1 (0.9-2); Albumin Level 3.6 gm/dl (3.4-5.0); BUN Creatinine Ratio 8.5 (10-20); Bilirubin,Total 0.9 mg/dl (0.2-1.0); Calcium 8.7 mg/dl (8.6-10.3); Est GFR (African American) 117.1 ml/min; Globulin 3.2 gm/dl (2.5-4.0); Magnesium 2.1 mg/dl (1.7-2.4); Phosphorus 4.1 mg/dl (2.5-4.9); Potassium 3.4 mmol/L (3.5-5.1); Total Protein 6.8 gm/dl (6.0-8.3)
[2023-11-14 08:34] LABS: Estimated Average Glucose 123 mg/dl; Hemoglobin A1C 5.9 % (4.5-5.6)
[2023-11-14] MEDS: CHOLECALCIFEROL 1,000 UNITS 25 MCG TAB PO SCH (09:26)
[2023-11-14] MEDS: THIAMINE HCL 100 MG TAB PO SCH (09:26)
[2023-11-14] MEDS: POTASSIUM CHLORIDE CRTAB 20 MEQ TABCR PO SCH ×2 (09:26→19:57)
[2023-11-14] MEDS: ESCITALOPRAM OXALATE 10 MG TAB PO SCH (09:27)
[2023-11-14] MEDS: FOLIC ACID 1 MG TAB PO SCH (09:27)
[2023-11-14] MEDS: MULTIVITAMIN TAB PO SCH (09:27)
[2023-11-14] MEDS: ZINC SULFATE 220 MG CAPSULE PO SCH (09:27)
[2023-11-14] MEDS: MAGNESIUM OXIDE 400 MG TAB PO SCH (09:27)
[2023-11-14] MEDS: PANTOprazole 40 MG TAB PO SCH (09:27)
[2023-11-14] MEDS: ENOXAPARIN INJ 40 MG/0.4 ML SYR SQ SCH (09:28)
[2023-11-14] MEDS: VANCOMYCIN HCL 125 MG/2.5ML SOLN PO SCH (11:15)
[2023-11-14] MEDS: CHERRY SYRUP 5 ML UDP PO SCH (11:15)
[2023-11-14 12:18] LABS: Adenovirus F 40/41 PCR Not Detected (NotDetected); Astrovirus PCR Not Detected (NotDetected); Campylobacter PCR Not Detected (NotDetected); Cryptosporidium PCR Not Detected (NotDetected); Cyclospora cayetanensis PCR Not Detected (NotDetected); Entamoeba histolytica PCR Not Detected (NotDetected); Enteroaggregative E.coli(EAEC) Not Detected (NotDetected); Enteropathogenic E.coli (EPEC) Not Detected (NotDetected); Enterotoxigenic E.coli (ETEC) Not Detected (NotDetected); Giardia lamblia PCR Not Detected (NotDetected); Norovirus GI/GII PCR Not Detected (NotDetected); Plesiomonas shigelloides PCR Not Detected (NotDetected); Rotavirus A PCR Not Detected (NotDetected); Salmonella PCR Not Detected (NotDetected); Sapovirus PCR Not Detected (NotDetected); Shiga-like Toxin E.coli (STEC) Not Detected (NotDetected); Shigella/Enteroinvasive E.coli Not Detected (NotDetected); Vibrio cholerae PCR Not Detected (NotDetected); Vibrio species PCR Not Detected (NotDetected); Yersinia enterocolitica PCR Not Detected (NotDetected)
[2023-11-14] MEDS: oxyCODONE HCL IR 5 MG TAB (IMMEDIATE RELEASE) PO PRN ×2 (16:14→22:37)
[2023-11-14] MEDS: hydrOXYzine HCl 25 MG TAB PO SCH (19:57)
[2023-11-15] MEDS: oxyCODONE HCL IR 5 MG TAB (IMMEDIATE RELEASE) PO PRN ×2 (04:36→10:29)
[2023-11-15] MEDS: PIPERACILLIN/TAZOBACTAM 4.5 GM in DEXTROSE 5% MINI-B 100 ML IV SCH (05:12)
[2023-11-15 07:18] LABS: Hematocrit (blood only) 41.2 % (42.0-52.0); Hemoglobin 13.2 g/dl (14.0-18.0); Mean Corpuscular Hemoglobin 28.3 pg (25.0-34.0); Mean Corpuscular Volume 88.2 fL (80.0-100.0); Mean Platelet Volume 9.7 fL (9.4-12.4); Platelet Count 192 K/uL (130-400); RDW Coefficient of Variation 16.9 % (11.5-14.5); RDW Standard Deviation 54.4 fL (36.4-46.3); Red Blood Count 4.67 M/uL (4.70-6.10); White Blood Count 8.17 K/ul (4.8-10.8)
[2023-11-15 07:35] LABS: BUN Creatinine Ratio 10.6 (10-20); Calcium 8.8 mg/dl (8.6-10.3); Creatinine Clr Calc Pharmacy 90.7 ml/min; Est GFR (African American) 117.1 ml/min; Magnesium 1.8 mg/dl (1.7-2.4); Phosphorus 4.4 mg/dl (2.5-4.9); Potassium 3.8 mmol/L (3.5-5.1)
[2023-11-15] MEDS: POTASSIUM CHLORIDE CRTAB 20 MEQ TABCR PO SCH (08:41)
[2023-11-15] MEDS: VANCOMYCIN HCL 125 MG/2.5ML SOLN PO SCH (08:41)
[2023-11-15] MEDS: CHERRY SYRUP 5 ML UDP PO SCH (08:41)
[2023-11-15] MEDS: ESCITALOPRAM OXALATE 10 MG TAB PO SCH (08:41)
[2023-11-15] MEDS: PANTOprazole 40 MG TAB PO SCH (08:41)
[2023-11-15] MEDS: ZINC SULFATE 220 MG CAPSULE PO SCH (08:42)
[2023-11-15] MEDS: FOLIC ACID 1 MG TAB PO SCH (08:42)
[2023-11-15] MEDS: ENOXAPARIN INJ 40 MG/0.4 ML SYR SQ SCH (08:42)
[2023-11-15] MEDS: MAGNESIUM OXIDE 400 MG TAB PO SCH (08:42)
[2023-11-15] MEDS: CHOLECALCIFEROL 1,000 UNITS 25 MCG TAB PO SCH (08:42)
[2023-11-15] MEDS: MULTIVITAMIN TAB PO SCH (08:42)
[2023-11-15] MEDS: THIAMINE HCL 100 MG TAB PO SCH (08:42)
--- NOTE | 2023-11-15 09:22 | Ultrasound Report ---
DOPPLER ULTRASOUND OF THE MESENTERIC VESSELS CLINICAL HISTORY: Abdominal pain. Elevated lactate. COMPARISON STUDY: CT of the abdomen and pelvis November 13, 2023 at 7:05 AM. TECHNIQUE: Grayscale, color and duplex Doppler sonography of the mesenteric vessels was attempted. FINDINGS: This exam was significantly compromised by suboptimal penetration. Peak systolic velocity w ithin the abdominal aorta was 52 cm/s. The mesenteric vessels were obscured by overlying bowel gas. T herefore, this study is nondiagnostic. IMPRESSION: Mesenteric vessels obscured by bowel gas. Therefore, this study is nondiagnostic. However , the mesenteric vessels were patent on CT performed earlier today. ACT 112: Negative or not required by law. Electronically signed by: Saad Singh M.D. 11/15/2023 9:19 AM
[2023-11-15] MEDS ORDERED: GABAPENTIN 600 MG TAB PO SCH (10:00)
--- NOTE | 2023-11-15 10:34 | Discharge Summary ---
Date of Service November 15, 2023 Admission HPI Per Admitting Provider Mr. El Gillis is a 38 year old gentleman with a past medical history remarkable for HCV s/p treatment, hepatic steatosis, chronic alcohol misuse, prediabetes, recent c. diff colilits, recent epiploic appendigitis, esophagitis, presented to [facility] ED due to acute right lower quadrant pain. Patient states that this is the same pain he has been previously admitted for--noting that it will remit on its own, but often is marked by nausea and vomiting. He states the pain started around midnight 11/13 and the vomiting did not resolve until shortly after arriving to ED. He states he has been in his usual state of health since last discharge. He reports being consistent with his medications and trying to reduce his alcohol. He reports drinking 0.5 pints every "couple of days" noting he use to drink 1-2 pints daily prior to admission in 09/2023. He denies any fevers or chills. Notes softer stool and increased frequency last evening after dinner. Patient denies any urinary concerns to include dysuria, hesitancy, or frequency. In the ED, vitals were notable for BP in 140s, HR of in 60s, and O2 sat of high 90s on room air Imaging revealed signs of proctitis, interval improvement in esophageal and co lonic thickening, stable hepatic steasosis, stable right nephrolithasis, ?cystitis Labs with hypokalemia 3.1, hypomagnesemia 1.2, UA +nitrite, leukoesterase, but >30 epi cells, lactate 3.8 EKG sinus tachy on admission, stable ED interventions: 3L NS, Mag x2 IV, Potassium 10meq, zofran Consultants: General surgery given history of recurrent epiploic appendigitis Patient to be admitted to med/surg tele for further evaluation and management of acute abdominal pain with nausea/vomiting. Admission Exam Per Admitting Provider GENERAL APPEARANCE: AxOx4, anxious gen HEENT: NC, AT. MMM. EOMI, clear conjunctiva, oropharynx clear. NECK: Supple without lymphadenopathy. No stiffness or restricted ROM. HEART: Normal rate and regular rhythm, normal S1/S1, no m/r/g LUNGS: CTAB, moving air well. No crackles or wheezes are heard. ABDOMEN: Soft, nondistended with good bowel sounds heard, tenderness in RLQ with deep palpation BACK: No CVAT, no obvious deformity. EXTREMITIES: Without cyanosis, clubbing or edema. NEUROLOGICAL: Grossly nonfocal. Alert and oriented, moving all 4 extremities. CN not formally tested but appear grossly intact. Observed to ambulate with normal gait. Skin: Warm and dry without any rash. Principal Diagnosis Recurrent RLQ abdominal pain Poss. UTI Poss proctitis Discharge Exam GENERAL: WD/WN M in NAD HEENT: NC, AT. MMM. EOMI, clear conjunctiva NECK: Supple HEART: Normal rate and regular rhythm, normal S1/S1, no m/r/g LUNGS: CTAB, moving air well. No crackles or wheezes are heard. ABDOMEN: Soft, nondistended, + bowel sounds, minimal tenderness in RLQ with deep palpation (improved) BACK: No CVAT, no obvious deformity. EXTREMITIES: moves extremities NEUROLOGICAL: Alert and oriented, answers appropriately, no facial asymmetry, moving all 4 extremities. Skin: Warm and dry without any rash. Discharge Data Allergies Allergy/AdvReac Type Severity Reaction Status Date / Time No Known Allergies Allergy Verified 11/13/23 08:58 Consultations 11/13/23 09:44 ED Decision to Admit Stat 11/13/23 11:21 Consult General Surgery Routine Ordered Studies 11/13/23 06:24 CT abd pelvis IV con only Stat FINDINGS: The lung bases are clear. No pneumoperitoneum. No pneumatosis. No acute fractures identified. Distal esophageal wall thickening has improved. Hepatic steatosis. The main portal vein is patent. The gallbladder, pancreas, spleen, and adrenal glands are unremarkable. The kidneys enhance normally. Right-sided nephrolithiasis again noted. No ureteral stones. No hydronephrosis. No retroperitoneal lymphadenopathy. Normal caliber abdominal aorta. No pelvic free fluid or pelvic lymphadenopathy. There is mild bladder wall thickening. This remains unchanged. No dilated loops of bowel to suggest an obstruction. Mild submucosal fat deposition within the ascending colon/cecum with improved bowel wall thickening. No associated pericolonic fat stranding. There is mild rectal wall thickening/enhancement. This has progressed in the interval. IMPRESSION: 1. Rectal wall thickening/enhancement. This suggests a nonspecific proctitis. Follow-up endoscopy recommended to exclude the possibility of underlying rectal lesion. 2. Mild bladder wall thickening again noted. Recommend correlation with urinalysis to exclude a cystitis. 3. Interval improvement in the distal esophageal and proximal colonic thickening compared to the prior study. 4. No evidence for bowel obstruction. 5. Right-sided nephrolithiasis. No hydronephrosis. 6. Hepatic steatosis again noted. 11/13/23 16:28 US duplex mesenteric Routine FINDINGS: This exam was significantly compromised by suboptimal penetration. Peak systolic velocity within the abdominal aorta was 52 cm/s. The mesenteric vessels were obscured by overlying bowel gas. Therefore, this study is nondiagnostic. IMPRESSION: Mesenteric vessels obscured by bowel gas. Therefore, this study is nondiagnostic. However, the mesenteric vessels were patent on CT performed earlier today. Hospital Course (1) Abdominal pain: Plan Mr. El Gillis is a 38 year old gentleman with a past medical history remarkable for HCV s/p treatment, hepatic steatosis, chronic alcohol misuse, prediabetes, recent c. diff colilits, recent epiploic appendigitis, esophagitis, presented to [facility] ED due to acute right lower quadrant pain. Patient admitted for eval and management of such, given notably elevated lactate and multiple electrolyte abnormalities. Sepsis [leukocytosis, tachycardia, lactate] Acute abdominal pain, recurrent RLQ Abnormal CT of Abdomen and Pelvis Recent C Diff colilitis History of epiploic appendagitis CT abdomen pelvis: resolution of prior findings, ?cystitis on imaging and proctitis Looser stools, increased frequency, but not watery and without urgency Completed recent 10 day course of PO vanc for c diff leukocytosis +shift -Gen surg consult given continued RLQ pain: recent resolving epiploic appendagitis. No surgical intervention is indicated -No urinary complaints, s/p CTX empirically, infectious work up pending -Advance diet as tolerated -Needs OP GI follow up -Trend lactate, encourage PO intake 11/14 yesterday lactate up - and admitting provider increased IVF and switched to zosyn and also ordered mesenteric US -results pending, repeat lactate 1.7 -overall pt is feeling better, tolerating diet, pain is controlled - stool studies - negative 11/15 mesenteric US - negative Per CT abdomen -Rectal wall thickening/enhancement. This suggests a nonspecific proctitis. Follow-up endoscopy recommended to exclude the possibility of underlying rectal lesion. - Pt advised to follow up with gastroenterology. CD w/ images also provided Elevated Total protein Normal AG ratio, potentially elevated iso dehydration, historic trend reveal resolution after IVF Trend CMP Alcohol withdrawal Chronic Alcohol Misuse Mild transaminitis Chronic hepatic steatosis HCV status post treatment -Liver enzymes historically elevated to some degree, lower than prior admission -Trend CMP -AWSS, gabapentin, ativan while admitted -Encouraged continued efforts for cessation -GI follow up for steatosis -Continue thiamine and folic supplements Hypokalemia Chronic Hypomagnesemia -Replace and monitor -Monitor lytes, goal mag >2, K >4 history of opioid abuse -UDS Prediabetes hemoglobin A1c of 5.8 last December 2022 current Hgb A1C 5.9% Grade-D Esophagitis -Last scope 12/2022 -Continue protonix Elevated BP Chronic Proteinuria -iso alcohol withdrawal, last drink 11/11--denies any ongoing antihypertensive, does not check at home -historically positive, will quantify with random pr/cr ratio, protein/Cr ratio 0.2 Borderline personality disorder/mood disorder -Cont. Lexapro and hydroxyzine Past tobacco abuse Encouraged continued cessation Total Time Total Time Spent Total Time Spent (In Minutes): 40 Discharge Plan Discharge Items Patient Disposition: Home - Self-Care Reason For Visit: SEVERE ABD PAIN Discharge Diagnosis: Recurrent RLQ abdominal pain Poss. UTI Poss proctitis Activity: Per Instructions section Non-emergency contact: Primary Care Provider, Surgeon and Oil Furnace Installer Call non-emergency contact if: you have any medication questions and your symptoms worsen Follow-up/Referrals: [facility] [Primary Care Provider] - Diet: Regular Addtl Attending Provider Instructions: Follow up with primary care doctor within 1 week. Finish antibiotic treatment as prescribed. Recommend to follow up with medical operations supervisor and / or general surgeon. Pending Studies at Discharge: Yes Studies:: final blood cultx Stand-Alone Forms: [facility] Make My plate, Smoking Cessation Medications and DC Order Prescriptions: New amoxicillin-pot clavulanate 875-125 mg tablet 1 tab PO BID 5 Days Qty: 10 0RF vancomycin [Vancocin] 125 mg capsule 125 mg PO DAILY Qty: 7 0RF Rx Instructions: once daily for 7 days oxycodone 5 mg Tablet 5 mg PO BID PRN (Reason: pain) Qty: 5 0RF Continued escitalopram oxalate 10 mg tablet 10 mg PO QAM Rx Instructions: per 1st folic acid 1 mg Tablet 1 mg PO QAM Qty: 10 0RF magnesium 200 mg Tablet 200 mg PO DAILY potassium gluconate 550 mg (90 mg) Tablet 550 mg PO DAILY multivitamin Tablet 1 tab PO QAM cholecalciferol (vitamin D3) [Vitamin D3] 25 mcg (1,000 unit) Capsule 50 mcg PO QAM Rx Instructions: Per dr 1st thiamine HCl (vitamin B1) 100 mg Tablet 100 mg PO QAM Qty: 30 0RF pantoprazole 40 mg tablet,delayed release (DR/EC) 40 mg PO QAM PRN (Reason: Acid Reflux) Rx Instructions: before breakfast zinc acetate 50 mg (zinc) Capsule 50 mg PO DAILY lidocaine 5 % adhesive patch,medicated 1 patch topical BID PRN (Reason: Pain) hydroxyzine HCl 25 mg tablet 25 mg PO DAILY Discharge Orders: Discharge Order (Routine); Ordered 11/15/23 Ordered By: Jake Hess Admission Data Admit Date/Time: 11/13/23 11:20 Attending Provider: Jake Hess Admit Provider: Jacklyn Jerry Primary Care Provider: [facility] Other Providers: Jacklyn Jerry; Gabrielle Hollingsworth Valentine I.
[2023-11-15 11:37] VITALS: BP 145/98; PULSE 72; RESP 18; TEMP 98.1; O2SAT 96
[2023-11-16] MEDS ORDERED: GABAPENTIN 600 MG TAB PO SCH (22:00)
[2023-11-16 23:18] LABS: Marijuana Quant, GCMS Urine 1316 ng/mL (<5)
== END 2023-11-15 11:55 | disposition home or self-care (01) | DRG 872 ==
LOC: ED 05:02 → EDINP 11:20 → SUATTDRO 11:20 → 2N 14:16

== ENCOUNTER 2023-12-08 21:39 | Inpatient (IN) ==
[2023-12-08] MEDS ORDERED: SODIUM CHLORIDE 0.9% 1,000 ML IV SCH (22:30)
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
[2023-12-08 22:57] LABS: Basophils # (auto) 0.03 K/uL (0.00-0.20); Basophils % (auto) 0.3 %; Eosinophils # (auto) 0.04 K/uL (0.00-0.50); Eosinophils % (auto) 0.4 %; Hematocrit (blood only) 47.7 % (42.0-52.0); Hemoglobin 15.6 g/dl (14.0-18.0); Immature Granulocytes # (auto) 0.04 K/uL (0.01-0.20); Immature Granulocytes % (auto) 0.4 %; Lymphocytes # (auto) 1.49 K/uL (1.20-3.40); Lymphocytes % (auto) 14.4 %; Mean Corpuscular Hemoglobin 28.2 pg (25.0-34.0); Mean Corpuscular Hgb Conc 32.7 g/dL (32.0-36.0); Mean Corpuscular Volume 86.3 fL (80.0-100.0); Mean Platelet Volume 9.5 fL (9.4-12.4); Monocytes # (auto) 0.52 K/uL (0.11-0.59); Neutrophils # (auto) 8.24 K/uL (1.40-6.50); Neutrophils % (auto) 79.5 %; Platelet Count 242 K/uL (130-400); RDW Coefficient of Variation 17.6 % (11.5-14.5); RDW Standard Deviation 54.4 fL (36.4-46.3); Red Blood Count 5.53 M/uL (4.70-6.10); White Blood Count 10.36 K/ul (4.8-10.8)
[2023-12-08 22:57] LABS: Appearance Urine Clear (Clear); Bacteria Urine Automated Negative (Negative); Bilirubin Urine Negative (Negative); Blood Urine 2+ (Negative); Color Urine Yellow; Epithelial Cell Urine Auto 20-30 /lpf (0-5); Glucose Urine UA Negative (Negative); Ketones Urine Negative (Negative); Leukocyte Esterase Urine Negative (Negative); Nitrite Urine Negative (Negative); Protein Urine 1+ (Negative); RBC Urine Automated 0-4 /hpf (0-4); Specific Gravity Urine 1.009 (1.000-1.030); Urobilinogen Urine Negative (Negative); pH Urine 6.5 (4.5-7.5)
[2023-12-08 23:11] LABS: Albumin Globulin Ratio 1.2 (0.9-2); Albumin Level 5.2 gm/dl (3.4-5.0); BUN Creatinine Ratio 9.8 (10-20); Bilirubin,Total 0.5 mg/dl (0.2-1.0); Calcium 9.4 mg/dl (8.6-10.3); Creatinine Clr Calc Pharmacy 61.3 ml/min; Est GFR (Non-African American) 56.1 ml/min; Globulin 4.4 gm/dl (2.5-4.0); Magnesium 2.3 mg/dl (1.7-2.4); Potassium 3.7 mmol/L (3.5-5.1); Total Protein 9.6 gm/dl (6.0-8.3)
[2023-12-08 23:17] LABS: Troponin I High Sensitivity 26.1 pg/ml (0-20)
[2023-12-08 23:19] LABS: Prothrombin Time 10.8 Seconds (9.0-12.0)
[2023-12-08 23:27] LABS: Base Excess VBG -1.7 mEq/L; HCO3 VBG 25 mmol/L; Oxygen Saturation VBG 72.9 %; PCO2 VBG 50 mmHg (38-50); PO2 VBG 49 mmHg; pH VBG 7.31 (7.36-7.41)
[2023-12-08 23:27] LABS: Acetaminophen < 3 ug/ml (10-30); Salicylate < 3.0 mg/dl (3.0-30)
[2023-12-08 23:55] LABS: Amphetamines+Metham, Urine Neg (Neg); Barbiturates, Urine Neg (Neg); Benzodiazepine, Urine Neg (Neg); Cocaine, Urine Neg (Neg); MDMA (Ecstacy), Urine Neg (Neg); Marijuana, Urine Pos (Neg); Methadone, Urine Neg (Neg); Opiate, Urine Neg (Neg); Phencyclidine, Urine Neg (Neg)
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
[2023-12-09] MEDS ORDERED: NITROGLYCERIN SL 0.4 MG/TAB TAB SL PRN (02:53)
[2023-12-09] MEDS ORDERED: POLYETHYLENE (MIRALAX) 17 GM PACK PO PRN (02:53)
[2023-12-09] MEDS ORDERED: GABAPENTIN 600 MG TAB PO ONE (02:53)
[2023-12-09] MEDS ORDERED: LORazepam 2 MG in SYRINGE 1 ML IV PRN (02:53)
[2023-12-09] MEDS ORDERED: LORazepam 3 MG in SYRINGE 1.5 ML IV PRN (02:53)
[2023-12-09] MEDS ORDERED: Ativan IV Alcohol Withdrawal--Active Protocol IV PRN (02:53)
[2023-12-09] MEDS ORDERED: THIAMINE HCL 100 MG in SYRINGE 9 ML IV STA (02:53)
[2023-12-09] MEDS ORDERED: GABAPENTIN 1200MG ALCOHOL WITHDRAWAL LOAD PO STA (02:53)
[2023-12-09] MEDS: SODIUM CHLORIDE 0.9% 1,000 ML IV SCH ×4 (03:26→23:53)
[2023-12-09] MEDS ORDERED: LORazepam 1 MG/1 ML SYR ED Inj Use ONE (03:32)
[2023-12-09] MEDS: LORazepam 1 MG in SYRINGE 0.5 ML IV PRN ×2 (03:33→20:22)
--- OUTSIDE RECORDS SUMMARY | 2023-12-09 06:38 | External Medical Summary | Summary of Care ---
Author Name Unknown Organization [facility] Address [address] [place] [address] Phone [phone] Care Team Providers Care Grill Prep Cook Name Role Phone Rachelle Lacey PA-C Primary Care Provid er Reason for Visit * Reason Onset Date Comments Appointment 11/24/2023 Encounter Details Date Type Department Care Team (Late st Contact Info) Description 11/24/2023 Telephone Gastroenterology, [facility] [address] [facility] [place] [address] Specified, Sergey No Resource [address] [place] [address] Appointment Allergies No known active allergiesdocumented as of this encounter (statuses as of 11/28/2023) Medications Medication Sig Dispensed Refills Start Date End Date Status buprenorphine-naloxone 8-2 mg per tab (SUBOXONE) 8-2 MG SUBL Sublingual tablet Place under the tongue daily. Unsure of milligrams 0 Active Daclatasvir Dihydrochloride 60 MG TABS 1 Tab daily. 0 Active Sofosbuvir 400 MG TABS 400 mg daily. 0 Active citalopram (CELEXA) 20 MG Tablet Take 20 mg by mouth daily. 0 Active multivitamin (MVI) Tablet Take 1 Tab by mouth daily. 0 Active hydrALAZINE (APRESOLINE) 10 MG Tablet Take 10 mg by mouth 2 times a day. 0 Active docusate sodium (COLACE) 100 MG Capsule Take 1 Cap by mouth daily. 30 Cap 0 03/11/2017 Active Cholecalciferol (VITAMIN D3) 1000 units CAPS once. 0 Active documented as of this encounter (statuses as of 11/28/2023) Active Problems No known active problems documented as of this encounter (statuses as of 11/28/2023) Social History Tobacco Use Types Packs/Day Years Used Date Smoking Tobacco: Former Smokeless Tobacco: Never Alcohol Use Standard Drinks/Week Comments Yes 0 (1 standard drink = 0.6 oz pur e alcohol) 1 drink every 3-6 months Sex and Gender Information Value Date Recorded Sex Assigned at Not on file Gender Identity Not on file Sexual Orientation Not on file documented as of this encounter Miscellaneous Notes * Telephone Encounter - Maryellen Velazquez OSA - 11/28/2023 1:44 PM EST Records scanned in please review and see what patient needs thank you. * Telephone Encounter - Arin Degroot OSA - 11/24/2023 3:23 PM EST [facility] Chronic [facility] pain, GERD with gastritis, Abnormal scan with Rectal Wall thickening, with recommendation for CT scan. Referring provider: Ferdinand Mckeon Records were placed into scan. Please review. documented in this encounter Plan of Treatment Scheduled Procedures Name Priority Associated Diagnoses Date/Ti me ESOPHAGOGASTRODUODENOSCOPY ( EGD), FLEXIBLE, TRANSORAL, DIAGNOSTIC Recall Erosive esophagitis COLONOSCOPY FLEXIBLE PROXIMAL DIAGNOSTIC Recall Screening for malignant neoplasm of colon Health Maintenance Due Date Last Done Comments Hepatitis B (1 of 3 - 3-dose series) 1983 Lipid Panel 1983 COVID-19 Vaccine (#1) 1983 Depression Screening 1995 HIV Screening 1998 Hepatitis C Screening 2001 DTaP,Tdap,and Td Vaccines (1 - Tdap) 2002 Influenza Vaccine (FLU shot) (#1) 2023 GARDASIL-HPV IMMUNIZATION SERIES Aged Out No longer eligible based on patient's age to complete this topic MENINGOCOCCAL (MENACTRA/MENVEO) Aged Out No longer eligible based on patient's age to complete this topic Pneumococcal Vaccine: Pediat rics (0 to 5 Years) and At-Risk Patients (6 to 64 Years) Aged Out No longer eligible b ased on patient's age to complete this topic documented as of this encounter Medical Devices Not on filedocumented as of this encounter Care Teams Grill Prep Cook Relationship Specialty Start Date End Date Rachelle Lacey [facility]-C [address] [facility] [address] PCP - General Physician Adzing And Boring Machine Helper 01/07/20 documented as of this encounter
--- OUTSIDE RECORDS SUMMARY | 2023-12-09 06:38 | External Medical Summary | Summary of Care ---
Author Name Unknown Organization [facility] Address [address] [place] [address] Phone [phone] Care Team Providers Care Tool Grinder Operator Surface Name Role Phone Rachelle Lacey PA-C Primary Care Provid er Reason for Visit * Reason Onset Date Comments Hospital Follow-Up 11/16/2023 Encounter Details Date Type Department Care Team (Late st Contact Info) Description 11/16/2023 Telephone Ancillary [facility] [place] [address] [place] [id number] Elda Fountain, DYLLAN Hospital Follow-Up Allergies No known active allergiesdocumented as of this encounter (statuses as of 11/16/2023) Medications Medication Sig Dispensed Refills Start Date [...] as of this encounter (statuses as of 11/16/2023) Active Problems No known active problems documented as of this encounter (statuses as of 11/16/2023) Social History Tobacco Use Types Packs/Day Years [...] encounter Miscellaneous Notes * Telephone Encounter - Elda Fountain RN - 11/16/2023 8:05 AM EST Chart reviewed and YARELI not indicated, Pt has a follow up with [facility] No pcp follow up recommended at this time. documented in this encounter Plan of Treatment [...] filedocumented as of this encounter Care Teams Tool Grinder Operator Surface Relationship Specialty Start Date End Date Rachelle Lacey PA-C [address] [place] [address] PCP - General Physician Wide Piece Goods Inspector 01/07/20 documented as of this encounter
--- OUTSIDE RECORDS SUMMARY | 2023-12-09 06:38 | External Medical Summary | Summary of Care ---
Author Name Unknown Organization [facility] Address [address] [place] [address] Phone [phone] Care Team Providers Care Home Stager Name Role Phone Rachelle Lacey PA-C Primary Care Provid er Reason for Visit * Reason Onset Date Comments Appointment 11/24/2023 Encounter Details Date Type Department Care Team (Late st Contact Info) Description 11/24/2023 Telephone Gastroenterology, [facility] [address] [facility] [place] [address] Specified, Sergey No Resource [address] [place] [address] Appointment Allergies No known active allergiesdocumented as of this encounter (statuses as of 12/05/2023) Medications Medication Sig Dispensed Refills Start Date [...] as of this encounter (statuses as of 12/05/2023) Active Problems No known active problems documented as of this encounter (statuses as of 12/05/2023) Social History Tobacco Use Types Packs/Day Years [...] encounter Miscellaneous Notes * Telephone Encounter - Mariely Curran OSA - 12/05/2023 9:19 AM EST Lmm for pt to call back. * Telephone Encounter - Keo Bangura DO - 11/29/2023 9:07 AM EST Based on a review of the chart it appears the patient may benefit from a repeat colonoscopy to evaluate the rectal wall thickening. I would also suggest we have him seen by one of our RAMP SERVICE EMPLOYEE or PAs given the chronic discomfort, it is likely related to one of the medications as he is on chronic cannabis. * Telephone Encounter - Maryellen Velazquez OSA [...] filedocumented as of this encounter Care Teams Home Stager Relationship Specialty Start Date End Date Rachelle L[facility]-C [address] [facility] [address] PCP - General Physician Monotyper 01/07/20 documented as of this encounter
--- OUTSIDE RECORDS SUMMARY | 2023-12-09 06:38 | External Medical Summary | Summary of Care ---
Author Name Unknown Organization [facility] Address [address] [place] [address] Phone [phone] Care Team Providers Care Leather Tanner Name Role Phone Rachelle Lacey PA-C Primary Care Provid er Reason for Visit * Reason Onset Date Comments Appointment 11/24/2023 Encounter Details Date Type Department Care Team (Late st Contact Info) Description 11/24/2023 Telephone Gastroenterology, [facility] [address] [facility] [place] [address] Specified, Sergey No Resource [address] [place] [address] Appointment Allergies No known active allergiesdocumented as of this encounter (statuses as of 11/29/2023) Medications Medication Sig Dispensed Refills Start Date [...] as of this encounter (statuses as of 11/29/2023) Active Problems No known active problems documented as of this encounter (statuses as of 11/29/2023) Social History Tobacco Use Types Packs/Day Years [...] encounter Miscellaneous Notes * Telephone Encounter - Keo Bangura DO - 11/29/2023 9:07 AM EST Based on a review of the chart it appears the patient may benefit from a repeat colonoscopy to evaluate the rectal wall thickening. I would also suggest we have him seen by one of our HEEL VARNISHER or PAs given the chronic discomfort, it [...] filedocumented as of this encounter Care Teams Leather Tanner Relationship Specialty Start Date End Date Rachelle Lacey PA-C [address] [facility] [address] PCP - General Physician Parts Advisor 01/07/20 documented as of this encounter
--- OUTSIDE RECORDS SUMMARY | 2023-12-09 06:38 | External Medical Summary | Summary of Care ---
Author Name Unknown Organization [facility] Address [address] [place] [address] Phone [phone] Care Team Providers Care Logging Engineer Name Role Phone Rachelle Lacey PA-C Primary Care Provid er Reason for Visit * Reason Onset Date Comments Appointment 11/24/2023 Encounter Details Date Type Department Care Team (Late st Contact Info) Description 11/24/2023 Telephone Gastroenterology, [facility] [address] [facility] [place] [address] Specified, Sergey No Resource [address] [place] [address] Appointment Allergies No known active [...] have him seen by one of our UNDERWRITING INTERN or PAs given the chronic discomfort, it [...] filedocumented as of this encounter Care Teams Logging Engineer Relationship Specialty Start Date End Date Rachelle Lacey PA-C [address] [facility] [address] PCP - General Physician Pole Cutter 01/07/20 documented as of this encounter
--- NOTE | 2023-12-09 07:45 | XRay Report ---
XR chest 1V portable HISTORY: overdose COMPARISON: Chest 11/03/2023. FINDINGS: The lungs are clear. Cardiac silhouette is normal in size. No pleural effusions. No pneumot horax. IMPRESSION: No acute process. ACT 112: Negative or not required by law. Electronically signed by: Luigi Broussard M.D. 12/09/2023 7:43 AM
[2023-12-09 08:08] LABS: Albumin Level 3.9 gm/dl (3.4-5.0); BUN Creatinine Ratio 13.1 (10-20); Bilirubin Direct 0.1 mg/dl (0-0.2); Bilirubin,Total 0.5 mg/dl (0.2-1.0); Calcium 7.9 mg/dl (8.6-10.3); Creatinine Clr Calc Pharmacy 111.7 ml/min; Est GFR (African American) 126.9 ml/min; Est GFR (Non-African American) 109.5 ml/min; Magnesium 1.7 mg/dl (1.7-2.4); Potassium 3.7 mmol/L (3.5-5.1)
[2023-12-09 08:12] LABS: Basophils # (auto) 0.02 K/uL (0.00-0.20); Basophils % (auto) 0.3 %; Eosinophils # (auto) 0.06 K/uL (0.00-0.50); Hematocrit (blood only) 36.8 % (42.0-52.0); Hemoglobin 11.8 g/dl (14.0-18.0); Immature Granulocytes # (auto) 0.02 K/uL (0.01-0.20); Immature Granulocytes % (auto) 0.3 %; Lymphocytes # (auto) 1.03 K/uL (1.20-3.40); Lymphocytes % (auto) 17.1 %; Mean Corpuscular Hemoglobin 27.8 pg (25.0-34.0); Mean Corpuscular Hgb Conc 32.1 g/dL (32.0-36.0); Mean Corpuscular Volume 86.6 fL (80.0-100.0); Mean Platelet Volume 9.4 fL (9.4-12.4); Monocytes # (auto) 0.55 K/uL (0.11-0.59); Monocytes % (auto) 9.1 %; Neutrophils # (auto) 4.35 K/uL (1.40-6.50); Neutrophils % (auto) 72.2 %; Platelet Count 188 K/uL (130-400); RDW Coefficient of Variation 17.2 % (11.5-14.5); RDW Standard Deviation 55.2 fL (36.4-46.3); Red Blood Count 4.25 M/uL (4.70-6.10); White Blood Count 6.03 K/ul (4.8-10.8)
[2023-12-09 08:15] LABS: Troponin I High Sensitivity 9.6 pg/ml (0-20)
[2023-12-09] MEDS ORDERED: NON-FORMULARY MEDICATION (Potassium Gluconate 550 mg (90 mg) Tablet) PO SCH (09:00)
[2023-12-09] MEDS: ESCITALOPRAM OXALATE 10 MG TAB PO SCH (09:57)
[2023-12-09] MEDS: ENOXAPARIN INJ 40 MG/0.4 ML SYR SQ SCH (09:57)
[2023-12-09] MEDS: CHOLECALCIFEROL 1,000 UNITS 25 MCG TAB PO SCH (09:57)
[2023-12-09] MEDS: FOLIC ACID 1 MG TAB PO SCH (09:57)
[2023-12-09] MEDS: ZINC SULFATE 220 MG CAPSULE PO SCH (09:58)
[2023-12-09] MEDS: MAGNESIUM OXIDE 400 MG TAB PO SCH (09:58)
[2023-12-09] MEDS: hydrOXYzine HCl 25 MG TAB PO SCH (09:58)
[2023-12-09] MEDS: MULTIVITAMIN TAB PO SCH (09:58)
[2023-12-09] MEDS: THIAMINE HCL 100 MG TAB PO SCH (09:58)
[2023-12-09] MEDS: GABAPENTIN 600 MG TAB PO SCH ×3 (09:59→23:55)
--- NOTE | 2023-12-09 15:01 | CT Scan Report ---
CT chest diagnostic wo con CT DOSE: 574.15 mGy.cm HISTORY: s/p fall, R sided pain TECHNIQUE: Multiaxial CT images of the chest were performed without contrast. A dose lowering techni que was utilized adhering to the principles of ALARA. COMPARISON: Chest CTA 11/03/2023. FINDINGS: The central airways are patent. No pneumothorax. No pleural effusions. Bibasilar linear den sities favor subsegmental atelectasis or scarring. Otherwise, no focal lung consolidations to suggest a pneumonia. No evidence for pulmonary edema. No acute fractures identified. Limited views of the up per abdomen demonstrate hepatic steatosis and a normal spleen. The adrenal glands are unremarkable. T here is a 6 mm right renal stone. Normal esophagus. The heart is normal in size. No pericardial effus ion. Normal caliber thoracic aorta. No mediastinal hematoma or lymphadenopathy. IMPRESSION: 1. No acute traumatic process within the chest. 2. Hepatic steatosis. 3. Bibasilar linear densities favor subsegmental atelectasis or scarring. 4. Right-sided nephrolithiasis. ACT 112: Negative or not required by law. Electronically signed by: Luigi Broussard M.D. 12/09/2023 2:59 PM
[2023-12-09] MEDS: LIDOCAINE 5% 1 PATCH TD PRN (17:37)
--- NOTE | 2023-12-09 19:03 | Electrocardiogram Report ---
Test Reason : Blood Pressure : / mmHG Vent. Rate : 116 BPM Atrial Rate : 116 BPM P-R Int : 138 ms QRS Dur : 072 ms QT Int : 332 ms P-R-T Axes : 057 006 017 degrees QTc Int : 461 ms Sinus tachycardia Otherwise normal ECG When compared with ECG of 13-NOV-2023 05:41, No significant change was found Confirmed by Francisco Colorado ([id number]) on 12/09/2023 7:03:10 PM Referred By: REFERRED SELF Confirmed By:Francisco Colorado
[2023-12-10] MEDS: ENOXAPARIN INJ 40 MG/0.4 ML SYR SQ SCH (08:04)
[2023-12-10] MEDS: ESCITALOPRAM OXALATE 10 MG TAB PO SCH (08:05)
[2023-12-10] MEDS: GABAPENTIN 600 MG TAB PO SCH ×2 (08:05→15:46)
[2023-12-10] MEDS: hydrOXYzine HCl 25 MG TAB PO SCH (08:06)
[2023-12-10] MEDS: MAGNESIUM OXIDE 400 MG TAB PO SCH (08:06)
[2023-12-10 08:07] LABS: Hematocrit (blood only) 41.5 % (42.0-52.0); Hemoglobin 13.2 g/dl (14.0-18.0); Mean Corpuscular Hemoglobin 27.9 pg (25.0-34.0); Mean Corpuscular Hgb Conc 31.8 g/dL (32.0-36.0); Mean Corpuscular Volume 87.7 fL (80.0-100.0); Mean Platelet Volume 10.2 fL (9.4-12.4); Platelet Count 176 K/uL (130-400); RDW Coefficient of Variation 16.8 % (11.5-14.5); RDW Standard Deviation 53.9 fL (36.4-46.3); Red Blood Count 4.73 M/uL (4.70-6.10); White Blood Count 6.67 K/ul (4.8-10.8)
[2023-12-10] MEDS: THIAMINE HCL 100 MG TAB PO SCH (08:07)
[2023-12-10] MEDS: MULTIVITAMIN TAB PO SCH (08:07)
[2023-12-10] MEDS: CHOLECALCIFEROL 1,000 UNITS 25 MCG TAB PO SCH (08:07)
[2023-12-10] MEDS: ZINC SULFATE 220 MG CAPSULE PO SCH (08:08)
[2023-12-10] MEDS: FOLIC ACID 1 MG TAB PO SCH (08:08)
[2023-12-10] MEDS: SODIUM CHLORIDE 0.9% 1,000 ML IV SCH (08:10)
[2023-12-10 08:14] LABS: Albumin Globulin Ratio 1.3 (0.9-2); BUN Creatinine Ratio 13.3 (10-20); Bilirubin,Total 0.8 mg/dl (0.2-1.0); Calcium 8.8 mg/dl (8.6-10.3); Creatinine Clr Calc Pharmacy 113.9 ml/min; Est GFR (African American) 127.6 ml/min; Est GFR (Non-African American) 110.1 ml/min; Globulin 3.2 gm/dl (2.5-4.0); Magnesium 1.8 mg/dl (1.7-2.4); Total Protein 7.2 gm/dl (6.0-8.3)
[2023-12-10] MEDS: LIDOCAINE 5% 1 PATCH TD PRN (08:29)
--- NOTE | 2023-12-10 17:00 | Discharge Summary ---
Date of Service December 10, 2023 Admission HPI Per Admitting Provider 38-year-old male with past medical significant for HCV s/p treatment, hepatic steatosis, anal fissures, borderline personality disorder, latent TB, chronic alcohol abuse, prediabetes, recent C. difficile, recent epiploic appendagitis, esophagitis presents with alcohol intoxication and possible drug overdose. Patient states that he drank about a pint of vodka and he also had a 15 mg of oxy when he visited his friend seems around 7 PM. He lives with his parents. He sat down on the couch with his parents when he was found to be unresponsive and EMS called. He received multiple dose of Narcan prior to arrival. In the ER he was alert and awake. He was hypoxic and requiring oxygen. Currently resting comfortably and hemodynamic stable. Denies any headache. Vision is okay. No earache. No runny nose. No sore throat. No cough. Denies any chest pain or shortness of breath currently. No nausea. He states he has some mild abdominal discomfort which is chronic. States he is moving his bowels okay. Micturating okay. Afebrile. Hemodynamics stable. Past pelvis. As mentioned above. Past surgical history. [place] tooth extraction. Colonoscopy. Appendectomy. Social social history. Former smoker. Drinks alcohol sees couple of times a week. 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 Patient is adopted Admission Exam Per Admitting Provider General- Not in distress. Head- atraumatic Eyes- PERRL. ENT- oropharynx clear Neck- supple, no JVD. Lungs- clear to auscultation no wheezing or crackles Heart- regular rhythm; no murmur, no gallop. Abdomen- normal bowel sounds, soft, nontender, no distension. Extremities- no pretibial edema, no erythema seen. Neuro- alert, oriented x 3; PERRL, no facial palsy; no dysarthria; moves extremities. Skin- warm & dry Principal Diagnosis Overdose, alcohol intoxication Discharge Exam General- WD/WN young M in NAD Head- atraumatic Eyes- PERRL ENT- oropharynx clear Neck- supple, no JVD. Lungs- clear to auscultation no wheezing or crackles Heart- regular rhythm; no murmur, no gallop. Abdomen- normal bowel sounds, soft, nontender, no distension. Extremities- no pretibial edema, no erythema seen. Neuro- alert, oriented x 3; PERRL, no facial palsy; no dysarthria; moves extremities. Skin- warm & dry Discharge Data Allergies Allergy/AdvReac Type Severity Reaction Status Date / Time No Known Allergies Allergy Verified 12/08/23 23:38 Consultations 12/09/23 00:06 ED Decision to Admit Stat 12/09/23 19:31 Consult Behavioral Health Liaison Routine 12/10/23 14:41 Consult Psychiatry Routine Ordered Studies 12/09/23 14:11 CT chest diagnostic wo con Urgent FINDINGS: The central airways are patent. No pneumothorax. No pleural effusions. Bibasilar linear densities favor subsegmental atelectasis or scarring. Otherwise, no focal lung consolidations to suggest a pneumonia. No evidence for pulmonary edema. No acute fractures identified. Limited views of the upper abdomen demonstrate hepatic steatosis and a normal spleen. The adrenal glands are unremarkable. There is a 6 mm right renal stone. Normal esophagus. The heart is normal in size. No pericardial effusion. Normal caliber thoracic aorta. No mediastinal hematoma or lymphadenopathy. IMPRESSION: 1. No acute traumatic process within the chest. 2. Hepatic steatosis. 3. Bibasilar linear densities favor subsegmental atelectasis or scarring. 4. Right-sided nephrolithiasis. Hospital Course (1) Overdose: 38-year-old male with past medical significant for HCV s/p treatment, hepatic st eatosis, anal fissures, borderline personality disorder, latent TB, chronic alcohol abuse, prediabetes, recent C. difficile, recent epiploic appendagitis, esophagitis presents with alcohol intoxication and possible drug overdose. Patient states that he drank about a pint of vodka and he also had a 15 mg of oxy when he visited his friend seems around 7 PM. He lives with his parents. He sat down on the couch with his parents when he was found to be unresponsive and EMS called. He received multiple dose of Narcan prior to arrival. In the ER he was alert and awake. He was hypoxic and requiring oxygen. Currently resting comfortably and hemodynamic stable. Denies any headache. Vision is okay. No earache. No runny nose. No sore throat. No cough. Denies any chest pain or shortness of breath currently. No nausea. He states he has some mild abdominal discomfort which is chronic. States he is moving his bowels okay. Micturating okay. Afebrile. Hemodynamics stable. Overdose Alcohol intoxication States he took 15 mg of oxycodone and drank a pint of vodka Was found unresponsive on the couch Received multiple dose of Narcan Currently alert and awake Was hypoxic and requiring oxygen Denies any thoughts to hurt himself Currently hemodynamic stable Closely monitor IV fluids Alcohol intoxication States he drinks couple of times a week History of alcohol misuse Gabapentin alcohol withdrawal protocol with IV Ativan as needed thiamine, folic acid and multivitamins Close monitor for alcohol withdrawal 12/10 - Pt is awake alert oriented, no signs of withdrawal. Denies any SI. Seen by psychiatry as well - do not feel patient is in need of inpt treatment and pt does not meeting 302 criteria. Psych liason also contacted pt's parents - Parents do not have any safety concerns. El is appearing very motivated to stay sober and has additional info for more resources/support. Parents help manage his medications and are very supportive. Transaminitis Elevated more than his usual Trending down JAZIEL - resolved Creatinine 1.5 -> 0.8 Avoid nephrotoxic agents received fluids Mild elevation of CK IV fluids trending down Prediabetes Recent HbA1c was 5.9 Mild elevation troponin Denies any chest pain repeat troponin trending down EKG no acute findings Echo obtained - EFv 60-65%. LV wall motion is normal. Hypertension Seems not on medications monitor while inpt follow up as outpt History of hepatitis C status posttreatment Esophagitis cont. PPI Depression//borderline disorder Lexapro, hydroxyzine Total Time Total Time Spent Total Time Spent (In Minutes): 40 Discharge Plan Discharge Items Patient Disposition: Home - Home Health Services Reason For Visit: OVERDOSE, ALOCHOL INTOXICATION Discharge Diagnosis: Overdose, alcohol intoxication Activity: Per Instructions section Non-emergency contact: Primary Care Provider and Psychiatrist Call non-emergency contact if: you have any medication questions and your symptoms worsen Follow-up/Referrals: [facility] [Primary Care Provider] - Diet: Heart Healthy Addtl Attending Provider Instructions: Follow up with your primary care doctor and psychiatrist. You should be seen by your primary care physician within 1 week. It is crucial that you stop drinking and it is strongly recommended that you find and talk to a therapist as well. Pending Studies at Discharge: No Stand-Alone Forms: My [facility], Smoking Cessation Medications and DC Order Prescriptions: Continued escitalopram oxalate 10 mg tablet 10 mg PO QAM Rx Instructions: per dr 1st folic acid 1 mg Tablet 1 mg PO QAM Qty: 10 0RF magnesium 200 mg Tablet 200 mg PO DAILY potassium gluconate 550 mg (90 mg) Tablet 550 mg PO DAILY ketoconazole 2 % shampoo 1 applic TOPICAL DIRECTED multivitamin Tablet 1 tab PO QAM cholecalciferol (vitamin D3) [Vitamin D3] 25 mcg (1,000 unit) Capsule 50 mcg PO QAM thiamine HCl (vitamin B1) 100 mg Tablet 100 mg PO QAM Qty: 30 0RF pantoprazole 40 mg tablet,delayed release (DR/EC) 40 mg PO QAM PRN (Reason: Acid Reflux) Rx Instructions: before breakfast zinc acetate 50 mg (zinc) Capsule 50 mg PO DAILY lidocaine 5 % adhesive patch,medicated 1 patch topical BID PRN (Reason: Pain) hydroxyzine HCl 25 mg tablet 25 mg PO DAILY Discontinued oxycodone 5 mg Tablet 5 mg PO BID PRN (Reason: pain) Qty: 5 0RF Discharge Orders: Discharge Order (Routine); Ordered 12/10/23 Ordered By: Jake Hess Admission Data Admit Date/Time: 12/09/23 01:06 Attending Provider: Jake Hess Admit Provider: Bert Bartlett Primary Care Provider: [facility] Other Providers: Bert Bartlett; Alem Anderson; Petra Villa; Dylon Bain; Eugene Montalvo
[2023-12-11] MEDS ORDERED: GABAPENTIN 600 MG TAB PO SCH (06:00)
[2023-12-11 12:01] LABS: Marijuana Quant, GCMS Urine 394 ng/mL (<5)
[2023-12-12] MEDS ORDERED: GABAPENTIN 600 MG TAB PO SCH (18:00)
== END 2023-12-10 18:03 | disposition home or self-care (01) | DRG 918 ==
LOC: ED 21:39 → EDINP 12-09 01:06 → 2S 12-09 02:53

== ENCOUNTER 2023-12-28 10:12 | Inpatient (IN) ==
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
[2023-12-28] MEDS ORDERED: LORazepam 1 MG in SYRINGE 0.5 ML IV PRN (11:31)
[2023-12-28] MEDS ORDERED: LORazepam 3 MG in SYRINGE 1.5 ML IV PRN (11:31)
[2023-12-28] MEDS ORDERED: Ativan IV Alcohol Withdrawal--Active Protocol IV PRN (11:31)
[2023-12-28] MEDS ORDERED: LORazepam 2 MG in SYRINGE 1 ML IV PRN (11:31)
[2023-12-28] MEDS: chlordiazePOXIDE ALCOHOL WITHDRAWL 50MG PO STA (11:42)
[2023-12-28] MEDS: diazePAM 5 MG/ML 10ML VIAL IV STA ×2 (11:48→15:01)
[2023-12-28] MEDS: ONDANSETRON INJ 2 MG/ML 2 ML VIAL IV STA (11:48)
[2023-12-28 11:52] LABS: Appearance Urine Cloudy (Clear); Blood Urine Negative (Negative); Color Urine Orange; Glucose Urine UA Negative (Negative); Ketones Urine 1+ (Negative); Leukocyte Esterase Urine Trace (Negative); Nitrite Urine Positive (Negative); Protein Urine 3+ (Negative); RBC Urine Automated 0-4 /hpf (0-4); Specific Gravity Urine 1.028 (1.000-1.030); Urobilinogen Urine Negative (Negative)
[2023-12-28 11:54] LABS: Bilirubin Urine 1+ (Negative)
[2023-12-28 11:57] LABS: Basophils # (auto) 0.05 K/uL (0.00-0.20); Basophils % (auto) 0.7 %; Eosinophils # (auto) 0.02 K/uL (0.00-0.50); Eosinophils % (auto) 0.3 %; Hematocrit (blood only) 43.9 % (42.0-52.0); Hemoglobin 14.9 g/dl (14.0-18.0); Immature Granulocytes # (auto) 0.02 K/uL (0.01-0.20); Immature Granulocytes % (auto) 0.3 %; Lymphocytes # (auto) 0.99 K/uL (1.20-3.40); Lymphocytes % (auto) 14.3 %; Mean Corpuscular Hemoglobin 28.2 pg (25.0-34.0); Mean Corpuscular Hgb Conc 33.9 g/dL (32.0-36.0); Mean Platelet Volume 9.3 fL (9.4-12.4); Monocytes # (auto) 0.66 K/uL (0.11-0.59); Monocytes % (auto) 9.5 %; Neutrophils # (auto) 5.18 K/uL (1.40-6.50); Neutrophils % (auto) 74.9 %; Platelet Count 362 K/uL (130-400); RDW Coefficient of Variation 18.7 % (11.5-14.5); RDW Standard Deviation 54.4 fL (36.4-46.3); Red Blood Count 5.29 M/uL (4.70-6.10); White Blood Count 6.92 K/ul (4.8-10.8)
[2023-12-28] MEDS: MULTI-VITAMIN INFUSION 10 ML, THIAMINE HCL 100 MG, FOLIC ACID 1 MG in SODIUM CHLORIDE 0... IV ONE (12:00)
[2023-12-28] MEDS: chlordiazePOXIDE HCl 25 MG CAP PO SCH (12:06)
[2023-12-28 12:09] LABS: Albumin Globulin Ratio 1.2 (0.9-2); Albumin Level 4.8 gm/dl (3.4-5.0); BUN Creatinine Ratio 10.1 (10-20); Bilirubin,Total 1.7 mg/dl (0.2-1.0); Calcium 9.3 mg/dl (8.6-10.3); Creatinine Clr Calc Pharmacy 88.4 ml/min; Est GFR (Non-African American) 94.9 ml/min; Globulin 4.1 gm/dl (2.5-4.0); Magnesium 1.5 mg/dl (1.7-2.4); Potassium 3.4 mmol/L (3.5-5.1); Total Protein 8.9 gm/dl (6.0-8.3)
[2023-12-28 12:11] LABS: Bacteria Urine Automated 1+ (Negative); Mucus Urine Present (None Prsent)
--- NOTE | 2023-12-28 12:11 | XRay Report ---
XR chest 1V portable HISTORY: weakness COMPARISON: Chest 12/08/2023. FINDINGS: The lungs are clear. Cardiac silhouette is normal in size. No pleural effusions. No pneumot horax. IMPRESSION: No acute process. ACT 112: Negative or not required by law. Electronically signed by: Luigi Broussard M.D. 12/28/2023 12:10 PM
[2023-12-28 12:23] LABS: Thyroid Stimulating Hormone 0.88 uIu/ml (0.300-4.500)
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
[2023-12-28] MEDS: MAGNESIUM SULFATE / D5W 1 GM/100 ML BAG IV STA (14:18)
[2023-12-28] MEDS ORDERED: ACETAMINOPHEN 500 MG TAB PO PRN (15:01)
[2023-12-28] MEDS ORDERED: ALUMINUM/MAGNESIUM SUSP 30 ML UDC PO PRN (15:01)
[2023-12-28] MEDS ORDERED: POLYETHYLENE (MIRALAX) 17 GM PACK PO PRN (15:01)
--- NOTE | 2023-12-28 15:01 | Electrocardiogram Report ---
Test Reason : Blood Pressure : / mmHG Vent. Rate : 120 BPM Atrial Rate : 120 BPM P-R Int : 124 ms QRS Dur : 070 ms QT Int : 328 ms P-R-T Axes : 058 008 -02 degrees QTc Int : 463 ms Sinus tachycardia Incomplete right bundle branch block Nondiagnostic inferior Q waves Nonspecific T wave abnormality Anterior leads Abnormal ECG When compared with ECG of 08-DEC-2023 21:43, Nonspecific T wave abnormality now evident in Anterior leads Confirmed by Kang Osuna ([id number]) on 12/28/2023 3:01:19 PM Referred By: REFERRED SELF Confirmed By:Kang Osuna
[2023-12-28] MEDS: LORazepam 1 MG/1 ML SYR ED Inj Use IV STA (15:04)
[2023-12-28] MEDS: SODIUM CHLORIDE 0.9% 1,000 ML IV SCH (15:15)
--- OUTSIDE RECORDS SUMMARY | 2023-12-28 15:51 | External Medical Summary | Summary of Care ---
Author Name Unknown Organization [facility] Address [address] [place] [address] Phone [phone] Care Team Providers Care Cat Dog Or Other Pet Groomer Name Role Phone Rachelle Lacey PA-C Primary Care Provid er Reason for Visit * Reason Onset Date Comments Appointment 11/24/2023 Encounter Details Date Type Department Care Team (Late st Contact Info) Description 11/24/2023 Telephone Gastroenterology, [facility] [address] [facility] [place] [id number] Specified, Sergey No Resource [address] [place] [address] Appointment Allergies No known active allergiesdocumented as of this encounter (statuses as of 12/13/2023) Medications Medication Sig Dispensed Refills Start Date [...] as of this encounter (statuses as of 12/13/2023) Active Problems No known active problems documented as of this encounter (statuses as of 12/13/2023) Social History Tobacco Use Types Packs/Day Years [...] encounter Miscellaneous Notes * Telephone Encounter - Meri Tillman OSA - 12/13/2023 10:21 AM EST Letter sent SHANE Aldridge 12/13/2023 10:21 AM * Telephone Encounter - Mariely Curran OSA [...] have him seen by one of our 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
[2023-12-28] MEDS ORDERED: DICLOFENAC SOD 1% GEL 100 GM TUBE EXT PRN (18:06)
[2023-12-28] MEDS ORDERED: FAMOTIDINE 20 MG TAB PO PRN (18:06)
[2023-12-28] MEDS: ONDANSETRON INJ 2 MG/ML 2 ML VIAL IV PRN (19:40)
[2023-12-28] MEDS: LORazepam 1 MG in SYRINGE 0.5 ML IV PRN (19:43)
[2023-12-28 21:00] LABS: Amphetamines+Metham, Urine Neg (Neg); Barbiturates, Urine Neg (Neg); Benzodiazepine, Urine Neg (Neg); Cocaine, Urine Neg (Neg); MDMA (Ecstacy), Urine Neg (Neg); Marijuana, Urine Pos (Neg); Methadone, Urine Neg (Neg); Opiate, Urine Neg (Neg); Phencyclidine, Urine Neg (Neg)
[2023-12-28] MEDS: GABAPENTIN 100 MG CAP PO SCH (21:33)
[2023-12-28] MEDS: ENOXAPARIN INJ 40 MG/0.4 ML SYR SQ SCH (21:33)
[2023-12-29 07:05] LABS: Hematocrit (blood only) 40.1 % (42.0-52.0); Hemoglobin 13.1 g/dl (14.0-18.0); Mean Corpuscular Hemoglobin 28.2 pg (25.0-34.0); Mean Corpuscular Hgb Conc 32.7 g/dL (32.0-36.0); Mean Corpuscular Volume 86.2 fL (80.0-100.0); Mean Platelet Volume 9.8 fL (9.4-12.4); Platelet Count 256 K/uL (130-400); RDW Coefficient of Variation 17.4 % (11.5-14.5); RDW Standard Deviation 55.5 fL (36.4-46.3); Red Blood Count 4.65 M/uL (4.70-6.10); White Blood Count 4.79 K/ul (4.8-10.8)
[2023-12-29 07:20] LABS: Albumin Level 4.1 gm/dl (3.4-5.0); BUN Creatinine Ratio 8.6 (10-20); Bilirubin Direct 0.6 mg/dl (0-0.2); Calcium 8.7 mg/dl (8.6-10.3); Creatinine Clr Calc Pharmacy 94.1 ml/min; Est GFR (African American) 118.6 ml/min; Est GFR (Non-African American) 102.3 ml/min; Magnesium 1.9 mg/dl (1.7-2.4); Phosphorus 3.7 mg/dl (2.5-4.9); Potassium 3.5 mmol/L (3.5-5.1); Total Protein 7.1 gm/dl (6.0-8.3)
[2023-12-29] MEDS: ESCITALOPRAM OXALATE 10 MG TAB PO SCH (07:44)
[2023-12-29] MEDS: THIAMINE HCL 100 MG TAB PO SCH (07:45)
[2023-12-29] MEDS: PANTOprazole 40 MG TAB PO SCH (07:45)
[2023-12-29] MEDS: FOLIC ACID 1 MG TAB PO SCH (07:45)
[2023-12-29] MEDS: CEFDINIR 300 MG CAP PO SCH (14:26)
[2023-12-29] MEDS: chlordiazePOXIDE HCl 25 MG CAP PO SCH (14:27)
--- NOTE | 2023-12-29 16:14 | Hospitalist Progress Note ---
Date of Service December 29, 2023 Assessment & Plan (1) Alcohol intoxication: Plan: H/O Heavy alcohol use presents with elevated alcohol level and an anion gap metabolic acidosis. Alcohol intoxication Anion gap metabolic acidosis secondary to above Alcohol level 62.9 Recurrent admissions due to alcohol use Continue alcohol withdrawal protocol with Librium, thiamine, folic acid Also on low dose gabapentin at home Monitor for withdrawal Counseled to quit alcohol use Abnormal urinalysis Rule out UTI Urine culture negative so far (2) Hypomagnesemia: Plan: Replace and monitor (3) Alcohol abuse: Plan: Management as above (4) Increased anion gap metabolic acidosis: Plan: Resolved with IV fluids Monitor (5) Alcohol withdrawal: Plan: Monitor as above (6) Elevated liver enzymes: Plan: Related to alcohol use in setting of known fatty liver. LFTs trending down Avoid hepatotoxic agents as able (7) Anxiety and depression: Plan: Continue home medications Consulted psychiatry liaison as requested by patient DVT Px: Lovenox SQ Code Status Full Code Admission and Anticipated Discharge Date Admission Date: December 28, 2023 Subjective Patient is seen and examined at bedside States feeling better today Feels depressed and tearful during my encounter Denies any chest pain, dyspnea, dizziness, nausea, vomiting Eager to get discharged Review of Systems Review of Systems: All systems reviewed & are unremarkable except as noted in Subjective Physical Exam Physical Exam: Physical Exam: Vitals signs as noted above General Appearance:Moderately built and nourished, no apparent distress Head: normocephalic, Atraumatic Eyes: normal inspection, EOMI Neck: supple, Trachea midline Respiratory/Chest: Normal breath sounds, CTA, No accessory muscle use Cardiovascular: S1, S2, No murmur Abdomen/GI:Soft, Non tender, Bowel sounds present Extremities/Musculoskeletal:normal inspection, no edema Neurologic/Psych:AAOX3, grossly no focal neurological deficits ,+Tremor Skin: normal color, warm Results & Data Results & Data Vital Signs (Past 12 Hours) Vital Signs Pulse Pulse Ox O2 Del Method 12/29/23 15:26 63 12/29/23 15:00 97 Room Air 12/29/23 07:25 69 Laboratory Results Short CBC 12/29/23 Range/Units 05:58 WBC 4.79 L (4.8-10.8) K/ul Hgb 13.1 L (14.0-18.0) g/dl Hct 40.1 L (42.0-52.0) % Plt Count 256 (130-400) K/uL BMP 12/29/23 05:58 Sodium 138 Potassium 3.5 Chloride 103 Carbon Dioxide 27 BUN 8 Creatinine 0.93 Glucose 100 H Calcium 8.7 Liver Function 12/29/23 Range/Units 05:58 Total Bilirubin 3.0 H D (0.2-1.0) mg/dl Direct Bilirubin 0.6 H (0-0.2) mg/dl AST 69 H (13-39) U/L ALT 54 H (7-52) U/L Alkaline Phosphatase 81 (34-104) U/L Albumin 4.1 (3.4-5.0) gm/dl (1) Alcohol intoxication Complication of substance-induced condition: with unspecified complication Qualified Code(s): F10.929 - Alcohol use, unspecified with intoxication, unspecified (5) Alcohol withdrawal Complication of substance-induced condition: uncomplicated Qualified Code(s): F10.930 - Alcohol use, unspecified with withdrawal, uncomplicated
[2023-12-29] MEDS: KETOROLAC TROMETHAMINE 10 MG TABLET PO STA (18:31)
[2023-12-29] MEDS ORDERED: Ativan IV Alcohol Withdrawal--Active Protocol IV PRN (22:07)
[2023-12-29] MEDS ORDERED: LORazepam 2 MG in SYRINGE 1 ML IV PRN (22:07)
[2023-12-29] MEDS ORDERED: LORazepam 3 MG in SYRINGE 1.5 ML IV PRN (22:07)
[2023-12-29] MEDS: oxyCODONE HCL IR 5 MG TAB (IMMEDIATE RELEASE) PO PRN (22:30)
[2023-12-29] MEDS: LORazepam 1 MG in SYRINGE 0.5 ML IV PRN (22:30)
[2023-12-30 06:43] LABS: Hematocrit (blood only) 42.9 % (42.0-52.0); Hemoglobin 13.8 g/dl (14.0-18.0); Mean Corpuscular Hemoglobin 27.9 pg (25.0-34.0); Mean Corpuscular Hgb Conc 32.2 g/dL (32.0-36.0); Mean Corpuscular Volume 86.8 fL (80.0-100.0); Mean Platelet Volume 9.7 fL (9.4-12.4); Platelet Count 226 K/uL (130-400); RDW Coefficient of Variation 16.9 % (11.5-14.5); RDW Standard Deviation 53.5 fL (36.4-46.3); Red Blood Count 4.94 M/uL (4.70-6.10); White Blood Count 5.14 K/ul (4.8-10.8)
[2023-12-30 07:05] LABS: Albumin Globulin Ratio 1.4 (0.9-2); Albumin Level 4.2 gm/dl (3.4-5.0); BUN Creatinine Ratio 14.9 (10-20); Bilirubin,Total 1.3 mg/dl (0.2-1.0); Creatinine Clr Calc Pharmacy 93.2 ml/min; Est GFR (African American) 117.1 ml/min; Globulin 3.1 gm/dl (2.5-4.0); Magnesium 1.7 mg/dl (1.7-2.4); Potassium 3.5 mmol/L (3.5-5.1); Total Protein 7.3 gm/dl (6.0-8.3)
--- NOTE | 2023-12-30 10:32 | Hospitalist Progress Note ---
Date of Service December 30, 2023 Assessment & Plan (1) Alcohol intoxication: Plan: H/O Heavy alcohol use presents with elevated alcohol level and an anion gap metabolic acidosis. Alcohol intoxication Anion gap metabolic acidosis secondary to above Alcohol level 62.9 Recurrent admissions due to alcohol use Continue alcohol withdrawal protocol with Librium, thiamine, folic acid Also on low dose gabapentin at home Monitor for withdrawal Counseled to quit alcohol use Currently no withdrawal symptoms Not interested in rehab placement Prefers to be discharged home today Abnormal urinalysis UTI ruled out Urine culture negative (2) Hypomagnesemia: Plan: Replace and monitor (3) Alcohol abuse: Plan: Management as above (4) Increased anion gap metabolic acidosis: Plan: Resolved with IV fluids Monitor (5) Alcohol withdrawal: Plan: Monitor as above (6) Elevated liver enzymes: Plan: Related to alcohol use in setting of known fatty liver. LFTs trending down Avoid hepatotoxic agents as able (7) Anxiety and depression: Plan: Continue home medications Consulted psychiatry liaison as requested by patient DVT Px: Lovenox SQ Code Status Full Code Admission and Anticipated Discharge Date Admission Date: December 28, 2023 Subjective Patient is seen and examined at bedside No new complaints Denies any chest pain, dyspnea, dizziness, nausea, vomiting Requests to be discharged Physical Exam Physical Exam: Physical Exam: Vitals signs as noted above General Appearance:Moderately built and nourished, no apparent distress Head: normocephalic, Atraumatic Eyes: normal inspection, EOMI Neck: supple, Trachea midline Respiratory/Chest: Normal breath sounds, CTA, No accessory muscle use Cardiovascular: S1, S2, No murmur Abdomen/GI:Soft, Non tender, Bowel sounds present Extremities/Musculoskeletal:normal inspection, no edema Neurologic/Psych:AAOX3, grossly no focal neurological deficits Skin: normal color, warm Results & Data Results & Data Vital Signs (Past 12 Hours) Vital Signs Temp Pulse Pulse Resp BP Pulse Ox O2 Del Method 12/30/23 07:33 36.7 C 71 20 100/61 94 Room Air 12/30/23 07:20 54 L 12/30/23 03:00 36.7 C 60 18 121/78 94 Room Air 12/29/23 22:57 63 (1) Alcohol intoxication Complication of substance-induced condition: with unspecified complication Qualified Code(s): F10.929 - Alcohol use, unspecified with intoxication, unspecified (5) Alcohol withdrawal Complication of substance-induced condition: uncomplicated Qualified Code(s): F10.930 - Alcohol use, unspecified with withdrawal, uncomplicated
--- NOTE | 2023-12-30 13:06 | Discharge Summary ---
Date of Service December 30, 2023 Admission HPI Per Admitting Provider The patient is a 38 yo alcoholic man who presents with alcohol intoxication and withdrawal. He was recently admitted to the hospital on 12/09-12/10 for alcohol withdrawal and intoxication and 11/13- of last year for the same issue. In Oct 13 he was also admitted for alcohol withdrawal and c diff colitis. Per case management notes on 12/10/23 he was interested in alcohol rehab via zoom meetings through the [facility] where he typically receives care. He lives at home with his parents and is independent with ADLs. Patient's father provides his transportation. He has been to AA in the past and to inpatient rehab a pproximately 10 years ago. He reports having a sponsor that talks with him once monthly. He reports vomiting since 5a this morning until 12 noon. Nausea and anxiety better after the valium and the nausea medicine given here in the ED and he is now keeping apple juice down. He still reports significant anxiety, however, and is visibly tremulous with ongoing tachycardia and elevated blood pressure. He does report sharp abdominal pain with his vomiting and has had some abdominal pain intermittently over the past few months that has been evaluated. He has a h/o heroin and opiate pill addiction in the past that he was able to beat. Has been eating ok until this morning. He reports a new job starting next week which is preventing him from considering inpatient rehabilitation at this time. Admission Exam Per Admitting Provider CONSTITUTIONAL: WNWD, vitals as above, visibly shaky/tremulous. EYES: pupils are round and equal bilaterally, normal conjunctivae, no scleral icterus ENT: external ear and nose normal, MMM NECK: trachea midline RESPIRATORY: clear to auscultation bilaterally, no crackles, rales or wheezes, normal respiratory effort CARDIOVASCULAR: regular rate and rhythm, S1 and 2 heard without murmurs, gallops or rubs, no JVD, no peripheral edema CHEST: inspection of chest was normal GASTROINTESTINAL: soft, nontender, ND, no guarding MUSCULOSKELETAL: strength 5/5 throughout, head is normocephalic and atraumatic SKIN: warm and dry NEUROLOGIC: CN 2-12 grossly intact, no sensory deficit, normal cognition, normal speech, + tremor PSYCHIATRIC: alert cooperative and oriented to person, place and time. ++anxious, makes good eye contact, language grossly intact, recent and remote memory grossly intact. Principal Diagnosis Alcohol intoxication Anion gap metabolic acidosis Anxiety and depression Discharge Data Allergies Allergy/AdvReac Type Severity Reaction Status Date / Time No Known Allergies Allergy Verified 12/28/23 10:45 Consultations 12/28/23 13:22 ED Decision to Admit Stat 12/29/23 14:43 Consult Behavioral Health Liaison Routine Procedures Performed Laboratory Results WBC 5.14 K/ul (4.8-10.8) 12/30/23 06:21 RBC 4.94 M/uL (4.70-6.10) 12/30/23 06:21 Hgb 13.8 g/dl (14.0-18.0) L 12/30/23 06:21 Hct 42.9 % (42.0-52.0) 12/30/23 06:21 MCV 86.8 fL (80.0-100.0) 12/30/23 06:21 MCH 27.9 pg (25.0-34.0) 12/30/23 06:21 MCHC 32.2 g/dL (32.0-36.0) 12/30/23 06:21 RDW Std Deviation 53.5 fL (36.4-46.3) H 12/30/23 06:21 RDW Coeff of Luke 16.9 % (11.5-14.5) H 12/30/23 06:21 Plt Count 226 K/uL (130-400) 12/30/23 06:21 MPV 9.7 fL (9.4-12.4) 12/30/23 06:21 Immature Gran % (Auto) 0.3 % 12/28/23 10:40 Neut % (Auto) 74.9 % 12/28/23 10:40 Lymph % (Auto) 14.3 % 12/28/23 10:40 [place] % (Auto) 9.5 % 12/28/23 10:40 Eos % (Auto) 0.3 % 12/28/23 10:40 Baso % (Auto) 0.7 % 12/28/23 10:40 Neut # (Auto) 5.18 K/uL (1.40-6.50) 12/28/23 10:40 Lymph # (Auto) 0.99 K/uL (1.20-3.40) L 12/28/23 10:40 [place] # (Auto) 0.66 K/uL (0.11-0.59) H 12/28/23 10:40 Eos # (Auto) 0.02 K/uL (0.00-0.50) 12/28/23 10:40 Baso # (Auto) 0.05 K/uL (0.00-0.20) 12/28/23 10:40 Immature Gran # (Auto) 0.02 K/uL (0.01-0.20) 12/28/23 10:40 Sodium 135 mmol/L (136-145) L 12/30/23 06:21 Potassium 3.5 mmol/L (3.5-5.1) 12/30/23 06:21 Chloride 102 mmol/L (98-107) 12/30/23 06:21 Carbon Dioxide 26 mmol/L (21-32) 12/30/23 06:21 Anion Gap 7 (3-11) 12/30/23 06:21 BUN 14 mg/dl (6-23) 12/30/23 06:21 Creatinine 0.94 mg/dl (0.6-1.4) 12/30/23 06:21 Est Cr Clr Drug Dosing 93.2 ml/min 12/30/23 06:21 Est GFR ( Amer) 117.1 ml/min 12/30/23 06:21 Est GFR (Non-Af Amer) 101.0 ml/min 12/30/23 06:21 BUN/Creatinine Ratio 14.9 (10-20) 12/30/23 06:21 Glucose 105 mg/dl (70-99(Fasting)) H 12/30/23 06:21 Calcium 9.0 mg/dl (8.6-10.3) 12/30/23 06:21 Phosphorus 3.7 mg/dl (2.5-4.9) 12/29/23 05:58 Magnesium 1.7 mg/dl (1.7-2.4) 12/30/23 06:21 Total Bilirubin 1.3 mg/dl (0.2-1.0) H D 12/30/23 06:21 Direct Bilirubin 0.6 mg/dl (0-0.2) H 12/29/23 05:58 AST 67 U/L (13-39) H 12/30/23 06:21 ALT 54 U/L (7-52) H 12/30/23 06:21 Alkaline Phosphatase 93 U/L (34-104) 12/30/23 06:21 Troponin I High Sens 4.0 pg/ml (0-20) 12/28/23 10:40 Total Protein 7.3 gm/dl (6.0-8.3) 12/30/23 06:21 Albumin 4.2 gm/dl (3.4-5.0) 12/30/23 06:21 Globulin 3.1 gm/dl (2.5-4.0) 12/30/23 06:21 Albumin/Globulin Ratio 1.4 (0.9-2) 12/30/23 06:21 Lipase 63 U/L (11-82) 12/28/23 10:40 TSH 0.880 uIu/ml (0.300-4.500) 12/28/23 10:40 Urine Color [place] 12/28/23 10:33 Urine Appearance Cloudy (Clear) A 12/28/23 10:33 Urine pH 7.0 (4.5-7.5) 12/28/23 10:33 Ur Specific [place] 1.028 (1.000-1.030) 12/28/23 10:33 Urine Protein 3+ (Negative) H 12/28/23 10:33 Urine Glucose (UA) Negative (Negative) 12/28/23 10:33 Urine Ketones 1+ (Negative) H 12/28/23 10:33 Urine Blood Negative (Negative) 12/28/23 10:33 Urine Nitrite Positive (Negative) A 12/28/23 10:33 Urine Bilirubin 1+ (Negative) H 12/28/23 10:33 Urine Urobilinogen Negative (Negative) 12/28/23 10:33 Ur Leukocyte Esterase Trace (Negative) H 12/28/23 10:33 Urine WBC (Auto) 1-5 /hpf (0-5) 12/28/23 10:33 Urine RBC (Auto) 0-4 /hpf (0-4) 12/28/23 10:33 U Hyaline Cast (Auto) 1-5 /lpf (0-5) 12/28/23 10:33 U Epithel Cells (Auto) 5-10 /lpf (0-5) H 12/28/23 10:33 Urine Bacteria (Auto) 1+ (Negative) H 12/28/23 10:33 Ur Renal Epithelial Cell Not Reportable 12/28/23 10:33 Urine Mucus Present (None Prsent) A 12/28/23 10:33 Urine Opiates Screen Neg (Neg) 12/28/23 10:33 Ur Methadone, Qual Neg (Neg) 12/28/23 10:33 Urine Barbiturates Neg (Neg) 12/28/23 10:33 Ur Phencyclidine (PCP) Neg (Neg) 12/28/23 10:33 U Amphetamin/Meth Scrn Neg (Neg) 12/28/23 10:33 MDMA (Ecstasy) Screen Neg (Neg) 12/28/23 10:33 U Benzodiazepines Scrn Neg (Neg) 12/28/23 10:33 Ur Cocaine Metabolite Neg (Neg) 12/28/23 10:33 U Marijuana (THC) Screen Pos (Neg) H 12/28/23 10:33 Ethyl Alcohol mg/dL 62.9 mg/dl (<10.0) H 12/28/23 10:40 Impressions Chest X-Ray 12/28/23 11:31 XR chest 1V portable HISTORY: weakness COMPARISON: Chest 12/08/2023. FINDINGS: The lungs are clear. Cardiac silhouette is normal in size. No pleural effusions. No pneumothorax. IMPRESSION: No acute process. ACT 112: Negative or not required by law. Electronically signed by: Luigi Broussard M.D. 12/28/2023 12:10 PM Hospital Course (1) Alcohol intoxication: H/O Heavy alcohol use presents with elevated alcohol level and an anion gap metabolic acidosis. Alcohol intoxication Anion gap metabolic acidosis secondary to above Alcohol level 62.9 Recurrent admissions due to alcohol use Continue alcohol withdrawal protocol with Librium, thiamine, folic acid Also on low dose gabapentin at home Monitor for withdrawal Counseled to quit alcohol use Currently no withdrawal symptoms Not interested in rehab placement Prefers to be discharged home today Abnormal urinalysis UTI ruled out Urine culture negative (2) Hypomagnesemia: Replace and monitor (3) Alcohol abuse: Management as above (4) Increased anion gap metabolic acidosis: Resolved with IV fluids Monitor (5) Alcohol withdrawal: Monitor as above (6) Elevated liver enzymes: Related to alcohol use in setting of known fatty liver. LFTs trending down Avoid hepatotoxic agents as able (7) Anxiety and depression: Continue home medications Consulted psychiatry liaison as requested by patient DVT Px: Renatenox SQ Code Status Full Code Total Time Total Time Spent Total Time Spent (In Minutes): 58 minutes Discharge Plan Discharge Items Patient Disposition: Home - Self-Care Reason For Visit: ALCOHOL WITHDRAWAL Discharge Diagnosis: Alcohol intoxication Anion gap metabolic acidosis Anxiety and depression Activity: Per Instructions section Exercise/Sports: Gradually increase as tolerated Non-emergency contact: Primary Care Provider and Psychiatrist Call non-emergency contact if: you have any medication questions, your symptoms worsen, your pain is concerning for you and you have a fever Follow-up/Referrals: [facility] [Primary Care Provider] - Diet: Regular Addtl Attending Provider Instructions: Follow-up with your primary care physician at [facility] in 1 week Follow-up with your psychiatrist in 1 week as recommended --- Quit drinking alcohol as advised Seek immediate medical attention if your symptoms reoccur or worsen Please take all medications as instructed on discharge list below. Please call if you have any questions or problems. You can reach a [facility] hospitalist on duty at [facility] 24 hours a day by calling [phone] Pending Studies at Discharge: No Stand-Alone Forms: My [facility] Sealed, Smoking Cessation Medications and DC Order Prescriptions: Continued ketoconazole 2 % shampoo 1 applic TOPICAL .EVERY OTHER DAY multivitamin Tablet 1 tab PO QAM cholecalciferol (vitamin D3) [Vitamin D3] 25 mcg (1,000 unit) Capsule 50 mcg PO QAM lidocaine 5 % adhesive patch,medicated 1 - 2 patch topical BID PRN (Reason: Pain) Rx Instructions: uses on abdomen hydroxyzine HCl 25 mg tablet 25 mg PO PM PRN (Reason: Sleep) fluocinolone 0.01 % Cream 1 applic TOPICAL BID PRN (Reason: skin irritaion) pantoprazole 20 mg tablet,delayed release (DR/EC) 20 mg PO DAILY famotidine 20 mg tablet 20 mg PO BID PRN (Reason: Acid Reflux) gabapentin 100 mg Capsule 100 mg PO TID escitalopram oxalate 10 mg tablet 10 mg PO DAILY triamcinolone acetonide 0.05 % Ointment 1 applic TOPICAL BID PRN (Reason: Skin Irritation) diclofenac sodium 1 % Gel 2 g TOPICAL TID PRN (Reason: Pain) Rx Instructions: uses on hands naloxone [Narcan] 4 mg/actuation [place],Non-Aerosol 4 mg INTRANASAL UD thiamine HCl (vitamin B1) 100 mg tablet 100 mg PO QAM folic acid 1 mg tablet 1 mg PO QAM magnesium 250 mg Tablet 250 mg PO DAILY potassium 20 mg Tablet,Chewable 20 mg PO DAILY Patient Comments: Pt takes "1 tab, unknown dose" OTC Discharge Orders: Discharge Order (Routine); Ordered 12/30/23 Ordered By: Tra Dick Admission Data Admit Date/Time: 12/28/23 14:45 Attending Provider: Tra Dick Admit Provider: Francia Cuevas Primary Care Provider: [facility] Other Providers: Francia Cuevas Other Interventions: Discharge Summary Assessment (RN) Last Done: 12/30/23 10:42
[2023-12-30] MEDS ORDERED: chlordiazePOXIDE HCl 25 MG CAP PO SCH (13:45)
[2023-12-31 13:12] LABS: Marijuana Quant, GCMS Urine 2068 ng/mL (<5)
== END 2023-12-30 11:13 | disposition home or self-care (01) | DRG 897 ==
LOC: ED 10:12 → SUATTDRO 14:45 → EDINP 14:45 → 2S 12-29 17:01

== ENCOUNTER 2024-03-24 16:54 | Inpatient (IN) ==
[2024-03-24 18:14] LABS: Hemoglobin 15.2 g/dl (14.0-18.0); Mean Corpuscular Hemoglobin 27.3 pg (25.0-34.0); Mean Corpuscular Hgb Conc 33.8 g/dL (32.0-36.0); Mean Corpuscular Volume 80.9 fL (80.0-100.0); Mean Platelet Volume 10.3 fL (9.4-12.4); Platelet Count 196 K/uL (130-400); RDW Coefficient of Variation 18.5 % (11.5-14.5); RDW Standard Deviation 52.1 fL (36.4-46.3); Red Blood Count 5.56 M/uL (4.70-6.10); White Blood Count 12.93 K/ul (4.8-10.8)
[2024-03-24 18:47] LABS: Albumin Globulin Ratio 1.2 (0.9-2); Albumin Level 4.8 gm/dl (3.4-5.0); BUN Creatinine Ratio 11.3 (10-20); Bilirubin,Total 2.6 mg/dl (0.2-1.0); Calcium 9.4 mg/dl (8.6-10.3); Creatinine Clr Calc Pharmacy 81.6 ml/min; Est GFR (African American) 100.5 ml/min; Est GFR (Non-African American) 86.7 ml/min; Globulin 3.9 gm/dl (2.5-4.0); Potassium 3.1 mmol/L (3.5-5.1); Total Protein 8.7 gm/dl (6.0-8.3)
[2024-03-24 18:53] LABS: Basophils # (auto) 0.08 K/uL (0.00-0.20); Basophils % (auto) 0.6 %; Eosinophils # (auto) 0.05 K/uL (0.00-0.50); Eosinophils % (auto) 0.4 %; Immature Granulocytes # (auto) 0.09 K/uL (0.01-0.20); Immature Granulocytes % (auto) 0.7 %; Lymphocytes # (auto) 1.22 K/uL (1.20-3.40); Lymphocytes % (auto) 9.4 %; Monocytes # (auto) 1.12 K/uL (0.11-0.59); Monocytes % (auto) 8.7 %; Neutrophils # (auto) 10.37 K/uL (1.40-6.50); Neutrophils % (auto) 80.2 %
[2024-03-24] MEDS: SODIUM CHLORIDE 0.9% 1,000 ML IV ONE (18:54)
[2024-03-24] MEDS: MAGNESIUM SULFATE / D5W 1 GM/100 ML BAG IV SCH (18:54)
[2024-03-24] MEDS: KETOROLAC TROMETHAMINE 15 MG/ML VIAL IV ONE (18:54)
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
[2024-03-24 19:09] LABS: Magnesium 1.4 mg/dl (1.7-2.4)
[2024-03-24] MEDS: POTASSIUM CHLORIDE CRTAB 20 MEQ TABCR PO STA (19:25)
[2024-03-24] MEDS: LORazepam 1 MG/1 ML SYR ED Inj Use IV STA (19:25)
[2024-03-24] MEDS: D5NSS + 20MEQ KCL 20 MEQ/1,000 ML BAG IV SCH (19:56)
[2024-03-24 20:51] LABS: INR 1.1 (0.9-1.1); Prothrombin Time 11.4 Seconds (9.0-12.0)
[2024-03-24] MEDS: THIAMINE HCL 100 MG in SYRINGE 9 ML IV STA (21:16)
[2024-03-24] MEDS: POTASSIUM CHLORIDE 20 MEQ in LACTATED RINGER'S 1,000 ML IV ONE (21:16)
[2024-03-24 21:37] LABS: Appearance Urine Clear (Clear); Bacteria Urine Automated None Seen (None Seen); Bilirubin Urine Negative (Negative); Blood Urine Negative (Negative); Color Urine Orange; Epithelial Cell Urine Auto 0-2 /hpf (0-2); Glucose Urine UA Negative (Negative); Ketones Urine 2+ (Negative); Leukocyte Esterase Urine Trace (Negative); Nitrite Urine Negative (Negative); Protein Urine 3+ (Negative); RBC Urine Automated 0-2 /hpf (0-2); Specific Gravity Urine 1.024 (1.000-1.030); Urobilinogen Urine Negative (Negative); WBC Urine Automated 0-5 /hpf (0-5); pH Urine >= 9.0 (4.5-7.5)
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
[2024-03-24] MEDS ORDERED: LORazepam 3 MG in SYRINGE 1.5 ML IV PRN (21:51)
[2024-03-24] MEDS ORDERED: Ativan IV Alcohol Withdrawal--Active Protocol IV PRN (21:51)
[2024-03-24] MEDS ORDERED: GABAPENTIN 1200MG ALCOHOL WITHDRAWAL LOAD PO STA (21:51)
[2024-03-24 22:09] LABS: Amphetamines+Metham, Urine Neg (Neg); Barbiturates, Urine Neg (Neg); Benzodiazepine, Urine Neg (Neg); Cocaine, Urine Neg (Neg); MDMA (Ecstacy), Urine Neg (Neg); Marijuana, Urine Pos (Neg); Methadone, Urine Neg (Neg); Opiate, Urine Neg (Neg); Phencyclidine, Urine Neg (Neg)
[2024-03-24] MEDS: GABAPENTIN 600 MG TAB PO STA (22:10)
[2024-03-24 23:30] LABS: Base Excess VBG 6.9 mEq/L; HCO3 VBG 30 mmol/L; Oxygen Saturation VBG 90.8 %; PCO2 VBG 38 mmHg (38-50); PO2 VBG 58 mmHg; pH VBG 7.51 (7.36-7.41)
[2024-03-24 23:49] LABS: Calcium 8.3 mg/dl (8.6-10.3); Creatinine Clr Calc Pharmacy 104.2 ml/min; Est GFR (African American) 126.7 ml/min; Est GFR (Non-African American) 109.3 ml/min; Potassium 3.2 mmol/L (3.5-5.1)
[2024-03-25 05:37] LABS: Albumin Globulin Ratio 1.4 (0.9-2); Albumin Level 3.8 gm/dl (3.4-5.0); BUN Creatinine Ratio 11.8 (10-20); Bilirubin,Total 2.4 mg/dl (0.2-1.0); Calcium 8.1 mg/dl (8.6-10.3); Creatinine Clr Calc Pharmacy 101.7 ml/min; Est GFR (African American) 125.4 ml/min; Est GFR (Non-African American) 108.2 ml/min; Globulin 2.8 gm/dl (2.5-4.0); Magnesium 2.1 mg/dl (1.7-2.4); Potassium 3.4 mmol/L (3.5-5.1); Total Protein 6.6 gm/dl (6.0-8.3)
[2024-03-25 05:50] LABS: Basophils # (auto) 0.02 K/uL (0.00-0.20); Basophils % (auto) 0.3 %; Eosinophils # (auto) 0.02 K/uL (0.00-0.50); Eosinophils % (auto) 0.3 %; Hematocrit (blood only) 38.9 % (42.0-52.0); Hemoglobin 13.3 g/dl (14.0-18.0); Immature Granulocytes % (auto) 1.3 %; Lymphocytes # (auto) 1.33 K/uL (1.20-3.40); Lymphocytes % (auto) 17.5 %; Mean Corpuscular Hemoglobin 27.9 pg (25.0-34.0); Mean Corpuscular Hgb Conc 34.2 g/dL (32.0-36.0); Mean Corpuscular Volume 81.7 fL (80.0-100.0); Mean Platelet Volume 10.3 fL (9.4-12.4); Monocytes # (auto) 1.03 K/uL (0.11-0.59); Monocytes % (auto) 13.6 %; Neutrophils # (auto) 5.09 K/uL (1.40-6.50); Platelet Count 203 K/uL (130-400); RDW Standard Deviation 53.6 fL (36.4-46.3); Red Blood Count 4.76 M/uL (4.70-6.10); White Blood Count 7.59 K/ul (4.8-10.8)
[2024-03-25] MEDS: GABAPENTIN 600 MG TAB PO SCH ×2 (06:27→20:05)
[2024-03-25] MEDS: ESCITALOPRAM OXALATE 10 MG TAB PO SCH (10:13)
[2024-03-25] MEDS: FOLIC ACID 1 MG TAB PO SCH (10:13)
[2024-03-25] MEDS: MULTIVITAMIN TAB PO SCH (10:14)
[2024-03-25] MEDS: THIAMINE HCL 100 MG TAB PO SCH (10:14)
[2024-03-25] MEDS: PANTOprazole 40 MG TAB PO SCH (10:18)
[2024-03-25] MEDS: ACETAMINOPHEN 500 MG TAB PO PRN (10:18)
[2024-03-25] MEDS: POTASSIUM CHLORIDE CRTAB 20 MEQ TABCR PO STA (10:18)
[2024-03-25] MEDS: PROMETHAZINE HCL 6.25 MG in SODIUM CHLORIDE 0.9% 50 ML IV PRN (13:46)
--- NOTE | 2024-03-25 17:59 | Hospitalist Progress Note ---
Date of Service March 25, 2024 Assessment & Plan (1) Alcohol withdrawal: Plan Pt is a 39yoM with PMhx significant for HCV status post treatment, GERD, hepatic steatosis, history anal fissure, prediabetes, borderline personality disorder/mood disorder, chronic anemia (baseline hemoglobin of 13), latent TB, alcohol abuse, past tobacco abuse presenting for alcohol withdrawal. Alcohol withdrawal Pt presenting to go through alcohol withdrawal Alcohol level elevated on admission, subsequently normal Notes he started drinking again after job loss AWSS, DT precautions Continue to monitor Upper extremity neuropathy possible carpal tunnel syndrome as per patient alcoholic neuropathy possibly contributory Outpatient follow-up with patient's talent management specialist for forearm neuropathy complaints HCV status post treatment Stable GERD stable on regimen Patient mentioned dark stools FOBT done at the ER negative prediabetes hemoglobin A1c of 5.29 October 2023 Stable hx borderline personality disorder/mood disorder Stable chronic anemia hemoglobin better than baseline likely secondary to hemoconcentration from AGMA, clinical dehydration DVT prophylaxis. SCDs Re: hx GI bleed Full code Admission and Anticipated Discharge Date Admission Date: March 24, 2024 Subjective pt was seen while down in the ED. Stated that he was feeling weak but denied sweats or tremors. Review of Systems Review of Systems: All systems reviewed & are unremarkable except as noted in Subjective Physical Exam Physical Exam: General: Alert, oriented. No acute distress Skin: No noted rashes or bruises Psych: Appropriate mood and affect Neuro: No gross deficits HEENT: NC/AT CV: RRR Resp: Breath sounds clear bilaterally, no increased effort of breathing. Abdomen:. Soft, nontender, nondistended Extremities: No edema in lower extremities bilaterally. Results & Data Results & Data Vital Signs (Past 12 Hours) Vital Signs Pulse Pulse Resp BP BP Pulse Ox Pulse Ox 03/25/24 07:21 77 03/25/24 01:00 79 18 122/82 94 03/25/24 00:33 03/25/24 00:32 94 03/25/24 00:30 70 22 93 03/25/24 00:00 78 20 94 03/25/24 00:00 70 20 128/88 91 03/24/24 23:30 82 91 03/24/24 23:01 85 14 97 03/24/24 23:00 135/93 03/24/24 23:00 74 18 135/93 92 05/04/24 22:59 13 98 03/24/24 22:31 82 03/24/24 22:00 83 92 03/24/24 22:00 133/92 03/24/24 22:00 78 18 133/92 94 O2 Del Method O2 Del Method 03/25/24 07:21 03/25/24 01:00 Room Air 03/25/24 00:33 Room Air 03/25/24 00:32 Room Air 03/25/24 00:30 03/25/24 00:00 03/25/24 00:00 Room Air 03/24/24 23:30 03/24/24 23:01 03/24/24 23:00 03/24/24 23:00 Room Air 03/24/24 22:59 03/24/24 22:31 03/24/24 22:00 03/24/24 22:00 03/24/24 22:00 Room Air
[2024-03-25] MEDS ORDERED: Nursing to Pharmacy Communication SCH (19:30)
--- NOTE | 2024-03-25 22:42 | Electrocardiogram Report ---
Test Reason : Blood Pressure : / mmHG Vent. Rate : 100 BPM Atrial Rate : 100 BPM P-R Int : 098 ms QRS Dur : 084 ms QT Int : 398 ms P-R-T Axes : 035 -37 050 degrees QTc Int : 513 ms Sinus rhythm with short CT Left axis deviation Nonspecific T wave abnormality Prolonged QT Abnormal ECG When compared with ECG of 24-MAR-2024 02:20, (unconfirmed) No significant change was found Confirmed by Eder Diaz ([id number]) on 03/25/2024 10:42:27 PM Referred By: REFERRED SELF Confirmed By:Eder Diaz
[2024-03-25] MEDS: COUGH DROP (SUGAR FREE) LOZ 24 LOZ/1 BOX BUCCAL PRN (22:52)
[2024-03-25 23:40] LABS: Influenza A virus by PCR Negative (Neg); Influenza B virus by PCR Negative (Neg); RSV by PCR Negative (Neg); SARS CoV2 RNA(COVID-19) Ceph NEGATIVE (Negative)
[2024-03-26 07:39] LABS: Hemoglobin 13.8 g/dl (14.0-18.0); Mean Corpuscular Hemoglobin 27.9 pg (25.0-34.0); Mean Corpuscular Hgb Conc 33.7 g/dL (32.0-36.0); Mean Corpuscular Volume 82.8 fL (80.0-100.0); Mean Platelet Volume 10.1 fL (9.4-12.4); Platelet Count 181 K/uL (130-400); RDW Coefficient of Variation 17.9 % (11.5-14.5); RDW Standard Deviation 52.9 fL (36.4-46.3); Red Blood Count 4.95 M/uL (4.70-6.10); White Blood Count 6.42 K/ul (4.8-10.8)
[2024-03-26 07:47] LABS: Albumin Globulin Ratio 1.3 (0.9-2); Albumin Level 3.9 gm/dl (3.4-5.0); BUN Creatinine Ratio 8.5 (10-20); Bilirubin,Total 1.8 mg/dl (0.2-1.0); Calcium 8.3 mg/dl (8.6-10.3); Creatinine Clr Calc Pharmacy 94.8 ml/min; Est GFR (African American) 116.3 ml/min; Est GFR (Non-African American) 100.3 ml/min; Globulin 2.9 gm/dl (2.5-4.0); Magnesium 1.7 mg/dl (1.7-2.4); Phosphorus 3.1 mg/dl (2.5-4.9); Potassium 3.5 mmol/L (3.5-5.1); Total Protein 6.8 gm/dl (6.0-8.3)
[2024-03-26] MEDS: KETOROLAC TROMETHAMINE 15 MG/ML VIAL IV PRN (09:07)
--- NOTE | 2024-03-26 10:46 | Hospitalist Progress Note ---
Date of Service March 26, 2024 Assessment & Plan (1) Alcohol withdrawal: Plan Pt is a 39yoM with PMhx significant for HCV status post treatment, GERD, hepatic steatosis, history anal fissure, prediabetes, borderline personality disorder/mood disorder, chronic anemia (baseline hemoglobin of 13), latent TB, alcohol abuse, past tobacco abuse presenting for alcohol withdrawal. Alcohol withdrawal Pt presenting to go through alcohol withdrawal/detox Alcohol level elevated on admission, subsequently normal Notes he started drinking again after recent job loss AWSS, DT precautions Continue to monitor Upper extremity neuropathy possible carpal tunnel syndrome as per patient alcoholic neuropathy possibly contributory Outpatient follow-up with patient's branch service specialist for forearm neuropathy complaints HCV status post treatment Stable GERD stable on regimen Patient mentioned dark stools FOBT done at the ER negative prediabetes hemoglobin A1c of 5.29 October 2023 Stable hx borderline personality disorder/mood disorder Stable chronic anemia hemoglobin better than baseline likely secondary to hemoconcentration from AGMA, clinical dehydration DVT prophylaxis. SCDs Re: hx GI bleed Full code Admission and Anticipated Discharge Date Admission Date: March 24, 2024 Subjective pt states roommate making him anxious. Day 2 of detox request. Notes pain in legs. Review of Systems Review of Systems: All systems reviewed & are unremarkable except as noted in Subjective Physical Exam Physical Exam: General: Alert, oriented. No acute distress Skin: No noted rashes or bruises Psych: Appropriate mood and affect Neuro: No gross deficits HEENT: NC/AT CV: RRR Resp: Breath sounds clear bilaterally, no increased effort of breathing. Abdomen:. Soft, nontender, nondistended Extremities: No edema in lower extremities bilaterally. Results & Data Results & Data Vital Signs (Past 12 Hours) Vital Signs Temp Pulse Pulse Resp BP Pulse Ox O2 Del Method 03/26/24 08:50 Room Air 03/26/24 08:09 36.8 C 76 18 166/109 H 96 Room Air 03/26/24 07:14 70 03/26/24 03:15 36.9 C 66 18 148/103 H 97 Room Air 03/25/24 23:20 72
[2024-03-26] MEDS: LORazepam 1 MG in SYRINGE 0.5 ML IV PRN (12:33)
[2024-03-26] MEDS: MELATONIN 3 MG TAB PO PRN (22:56)
[2024-03-26] MEDS: GABAPENTIN 600 MG TAB PO SCH (22:56)
[2024-03-27 07:13] LABS: Hemoglobin 14.4 g/dl (14.0-18.0); Mean Corpuscular Hemoglobin 27.7 pg (25.0-34.0); Mean Corpuscular Hgb Conc 33.5 g/dL (32.0-36.0); Mean Corpuscular Volume 82.9 fL (80.0-100.0); Mean Platelet Volume 10.2 fL (9.4-12.4); Platelet Count 195 K/uL (130-400); RDW Coefficient of Variation 17.9 % (11.5-14.5); RDW Standard Deviation 52.1 fL (36.4-46.3); Red Blood Count 5.19 M/uL (4.70-6.10); White Blood Count 7.75 K/ul (4.8-10.8)
[2024-03-27 07:29] LABS: Albumin Globulin Ratio 1.4 (0.9-2); Albumin Level 4.1 gm/dl (3.4-5.0); BUN Creatinine Ratio 16.1 (10-20); Bilirubin,Total 1.2 mg/dl (0.2-1.0); Calcium 8.8 mg/dl (8.6-10.3); Creatinine Clr Calc Pharmacy 94.7 ml/min; Est GFR (African American) 117.8 ml/min; Est GFR (Non-African American) 101.6 ml/min; Magnesium 1.8 mg/dl (1.7-2.4); Phosphorus 5.3 mg/dl (2.5-4.9); Potassium 3.4 mmol/L (3.5-5.1); Total Protein 7.1 gm/dl (6.0-8.3)
[2024-03-27] MEDS: FAMOTIDINE 20 MG TAB PO PRN (08:36)
[2024-03-27] MEDS: POTASSIUM CHLORIDE CRTAB 20 MEQ TABCR PO STA (08:39)
[2024-03-27] MEDS: LORazepam 2 MG in SYRINGE 1 ML IV PRN (09:57)
--- NOTE | 2024-03-27 11:33 | Hospitalist Progress Note ---
Date of Service March 27, 2024 Assessment & Plan (1) Alcohol withdrawal: Plan Pt is a 39yoM with PMhx significant for HCV status post treatment, GERD, hepatic steatosis, history anal fissure, prediabetes, borderline personality disorder/mood disorder, chronic anemia (baseline hemoglobin of 13), latent TB, alcohol abuse, past tobacco abuse presenting for alcohol withdrawal. Alcohol withdrawal Pt presenting to go through alcohol withdrawal/detox Alcohol level elevated on admission, subsequently normal on recheck hours later 36 hours in today Notes he started drinking again after recent job loss AWSS, DT precautions Continue to monitor Upper extremity neuropathy possible carpal tunnel syndrome as per patient alcoholic neuropathy possibly contributory Outpatient follow-up with patient's manipulative therapy specialist for forearm neuropathy complaints HCV status post treatment Stable GERD stable on regimen Patient mentioned dark stools FOBT done at the ER negative prediabetes hemoglobin A1c of 5.29 October 2023 Stable hx borderline personality disorder/mood disorder Stable chronic anemia hemoglobin better than baseline likely secondary to hemoconcentration from AGMA, clinical dehydration DVT prophylaxis. SCDs Re: hx GI bleed Full code Admission and Anticipated Discharge Date Admission Date: March 24, 2024 Subjective Pt angry and frustrated this AM. Discussion of withdrawal symptoms peaking at 3-5 days post last drink Does not understand why he needs to be monitored, threatening to leave AMA. On further discussion, and after calling his father, he decides to stay. Adelso phone down. Review of Systems Review of Systems: All systems reviewed & are unremarkable except as noted in Subjective Physical Exam Physical Exam: General: Alert, oriented. No acute distress Skin: No noted rashes or bruises Psych: Appropriate mood and affect Neuro: No gross deficits HEENT: NC/AT CV: RRR Resp: Breath sounds clear bilaterally, no increased effort of breathing. Abdomen:. Soft, nontender, nondistended Extremities: No edema in lower extremities bilaterally. Results & Data Results & Data Vital Signs (Past 12 Hours) Vital Signs Temp Pulse Pulse Resp BP BP Pulse Ox 03/27/24 09:32 36.8 C 82 20 155/106 H 97 03/27/24 07:38 36.7 C 73 14 148/100 H 98 03/27/24 06:45 60 03/27/24 03:52 36.5 C 82 18 136/92 94 03/27/24 03:04 85 O2 Del Method 03/27/24 09:32 Room Air 03/27/24 07:38 Room Air 03/27/24 06:45 03/27/24 03:52 Room Air 03/27/24 03:04
[2024-03-28 06:47] LABS: Hematocrit (blood only) 41.6 % (42.0-52.0); Hemoglobin 14.2 g/dl (14.0-18.0); Mean Corpuscular Hemoglobin 28.4 pg (25.0-34.0); Mean Corpuscular Hgb Conc 34.1 g/dL (32.0-36.0); Mean Corpuscular Volume 83.2 fL (80.0-100.0); Mean Platelet Volume 10.1 fL (9.4-12.4); Platelet Count 194 K/uL (130-400); RDW Coefficient of Variation 18.1 % (11.5-14.5); RDW Standard Deviation 52.8 fL (36.4-46.3); White Blood Count 7.17 K/ul (4.8-10.8)
[2024-03-28 07:23] LABS: Albumin Globulin Ratio 1.4 (0.9-2); Albumin Level 3.9 gm/dl (3.4-5.0); BUN Creatinine Ratio 20.7 (10-20); Bilirubin,Total 0.8 mg/dl (0.2-1.0); Calcium 8.3 mg/dl (8.6-10.3); Est GFR (African American) 124.2 ml/min; Est GFR (Non-African American) 107.2 ml/min; Globulin 2.8 gm/dl (2.5-4.0); Magnesium 1.6 mg/dl (1.7-2.4); Phosphorus 4.6 mg/dl (2.5-4.9); Potassium 3.3 mmol/L (3.5-5.1); Total Protein 6.7 gm/dl (6.0-8.3)
[2024-03-28] MEDS: MAGNESIUM OXIDE 400 MG TAB PO SCH (09:51)
[2024-03-28] MEDS: POTASSIUM CHLORIDE CRTAB 20 MEQ TABCR PO STA (09:51)
[2024-03-28 10:09] LABS: Marijuana Quant, GCMS Urine >5000 ng/mL (<5)
[2024-03-28] MEDS: GABAPENTIN 600 MG TAB PO SCH (11:34)
--- NOTE | 2024-03-28 11:53 | Discharge Summary ---
Date of Service March 28, 2024 Admission HPI Per Admitting Provider History obtained from patient and records. Medical history significant for HCV status post treatment, GERD, hepatic steatosis, history anal fissure, prediabetes, borderline personality disorder/mood disorder, chronic anemia (baseline hemoglobin of 13), latent TB, alcohol abuse, past tobacco abuse. Last confinement 2 months ago for alcohol intoxication. Patient refused rehab placement. Patient started drinking again 2 days ago. Stressed out by losing his job at [employer]. Denies suicidality. Vomiting episode with worsening of right hand cramping symptoms. No headache, no chest pain, SOB, abdominal pain. Dark stools with occasional hemorrhoidal bleed as per patient. Patient seeing [place] community relations specialist for right forearm symptoms possible carpal tunnel as per patient. Patient consulted ER this morning but subsequently discharged. Worsening shaking and hand cramping at home. Patient returned to ER. Medical History as above Surgical History : Appendectomy Family History : Unknown as patient owing to patient's adoption Personal/Social history : Non-smoker, alcohol use, currently unemployed Admission Exam Per Admitting Provider GENERAL: uncomfortable, tremulous, looks older than stated age, no respiratory distress SKIN: Pallor, warm HEENT: Pale palpebral conjunctivae, no ptosis, dry buccal mucosa NECK : Supple, no tenderness CHEST : CTA, no tenderness HEART : RRR, no obvious murmurs ABDOMEN: Some distention, no tenderness RECTAL : Intact sphincter, dark brown stool (FOBT negative) EXTREMITIES : Minimal tenderness right wrist, no LE swelling/tenderness, no other conspicuous deformities noted NEUROLOGIC : Coherent, no facial asymmetry, tremulous, no other gross focality Principal Diagnosis Alcohol withdrawal Discharge Exam General: WD/WN M in NAD, Alert, oriented. No acute distress Skin: No noted rashes or bruises Psych: Appropriate mood and affect Neuro: awake, alert, answers appropriately, speech fluent, moves extremities HEENT: NC/AT CV: RRR Resp: Breath sounds clear bilaterally, no increased effort of breathing. Abdomen:. Soft, nontender, nondistended Extremities: No edema in lower extremities bilaterally. Discharge Data Allergies Allergy/AdvReac Type Severity Reaction Status Date / Time No Known Allergies Allergy Verified 12/28/23 10:45 Consultations 03/24/24 20:41 ED Decision to Admit Stat Hospital Course (1) Alcohol withdrawal: Plan Pt is a 39yoM with PMhx significant for HCV status post treatment, GERD, hepatic steatosis, history anal fissure, prediabetes, borderline personality disorder/mood disorder, chronic anemia (baseline hemoglobin of 13), latent TB, alcohol abuse, past tobacco abuse presenting for alcohol withdrawal. Alcohol withdrawal Pt presenting to go through alcohol withdrawal/detox Alcohol level elevated on admission, subsequently normal on recheck hours later Notes he started drinking again after recent job loss AWSS, DT precautions Continue to monitor Feeling well today, cooperative, no tremors, would like to be discharged - plans to follow up with AA, PCP and psych Upper extremity neuropathy possible carpal tunnel syndrome as per patient alcoholic neuropathy possibly contributory Outpatient follow-up with patient's community relations specialist for forearm neuropathy complaints HCV status post treatment Stable GERD stable on regimen Patient mentioned dark stools FOBT done at the ER negative, follow up with outpt GI as needed prediabetes hemoglobin A1c of 5.29 October 2023 Stable hx borderline personality disorder/mood disorder Stable follow up with psychiatry as outpt chronic anemia hemoglobin better than baseline likely secondary to hemoconcentration from AGMA, clinical dehydration Current Hgb 14.2 Total Time Total Time Spent Total Time Spent (In Minutes): 40 Discharge Plan Discharge Items Patient Disposition: Home - Self-Care Reason For Visit: ETOH WITHDRAWAL Discharge Diagnosis: Alcohol withdrawal Activity: Per Instructions section Non-emergency contact: Primary Care Provider and Psychiatrist Call non-emergency contact if: you have any medication questions Follow-up/Referrals: [facility] [Primary Care Provider] - Diet: Regular Addtl Attending Provider Instructions: Follow up with your primary care physician , psychiatrist and other providers that you are scheduled with. Continue taking your potassium supplement as well thiamine and folic acid. Continue taking your home gabapentin as prescribed. It is crucial that you abstain from alcohol. Pending Studies at Discharge: No Stand-Alone Forms: My [place], Smoking Cessation Medications and DC Order Prescriptions: New ondansetron 4 mg tablet,disintegrating 4 mg PO DAILY Qty: 4 0RF Continued multivitamin Tablet 1 tab PO QAM cholecalciferol (vitamin D3) [Vitamin D3] 25 mcg (1,000 unit) Capsule 50 mcg PO QAM lidocaine 5 % adhesive patch,medicated 1 - 2 patch topical BID PRN (Reason: Pain) Rx Instructions: uses on abdomen hydroxyzine HCl 25 mg tablet 25 mg PO PM PRN (Reason: Sleep) pantoprazole 20 mg tablet,delayed release (DR/EC) 20 mg PO DAILY famotidine 20 mg tablet 20 mg PO BID PRN (Reason: Acid Reflux) escitalopram oxalate 10 mg tablet 10 mg PO QAM thiamine HCl (vitamin B1) 100 mg tablet 100 mg PO QAM folic acid 1 mg tablet 1 mg PO QAM magnesium 250 mg Tablet 250 mg PO QAM potassium 20 mg Tablet,Chewable 20 mg PO DAILY Patient Comments: Pt takes "1 tab, unknown dose" OTC Discharge Orders: Discharge Order (Routine); Ordered 03/28/24 Ordered By: Jake Hess Admission Data Admit Date/Time: 03/24/24 21:49 Attending Provider: Jake Hess Admit Provider: Hua Nieto Primary Care Provider: [facility] Other Providers: Hua Nieto
== END 2024-03-28 12:47 | disposition home or self-care (01) | DRG 897 ==
LOC: ED 16:54 → EDINP 21:49 → SUATTDRO 21:49 → 2N 03-25 00:18

== ENCOUNTER 2024-05-14 02:23 | Inpatient (IN) ==
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
[2024-05-14] MEDS: SODIUM CHLORIDE 0.9% 1,000 ML IV STA (03:14)
[2024-05-14] MEDS: DROPERIDOL 5 MG/2 ML VIAL IV STA ×2 (03:14→03:50)
[2024-05-14] MEDS: FAMOTIDINE 20MG IV PUSH 20 MG/5 ML SYR IV STA (03:15)
[2024-05-14 03:50] LABS: Albumin Level 5.3 gm/dl (3.4-5.0); Calcium 10.6 mg/dl (8.6-10.3)
[2024-05-14] MEDS: CAPSAICIN CR 0.075% 60 GM TUBE EXT STA (03:50)
[2024-05-14 03:58] LABS: Albumin Globulin Ratio 1.3 (0.9-2); BUN Creatinine Ratio 7.5 (10-20); Bilirubin,Total 0.7 mg/dl (0.2-1.0); Creatinine Clr Calc Pharmacy 72.8 ml/min; Est GFR (African American) 86.5 ml/min; Est GFR (Non-African American) 74.7 ml/min; Globulin 4.1 gm/dl (2.5-4.0); Magnesium 1.8 mg/dl (1.7-2.4); Total Protein 9.4 gm/dl (6.0-8.3)
[2024-05-14 04:04] LABS: Appearance Urine Turbid (Clear); Bacteria Urine Automated None Seen (None Seen); Bilirubin Urine Negative (Negative); Blood Urine Negative (Negative); Color Urine Yellow; Epithelial Cell Urine Auto 0-2 /hpf (0-2); Glucose Urine UA Negative (Negative); Ketones Urine 1+ (Negative); Leukocyte Esterase Urine Negative (Negative); Nitrite Urine Negative (Negative); Protein Urine 1+ (Negative); RBC Urine Automated 0-2 /hpf (0-2); Specific Gravity Urine 1.014 (1.000-1.030); Urobilinogen Urine Negative (Negative); WBC Urine Automated 0-5 /hpf (0-5); pH Urine 8.5 (4.5-7.5)
[2024-05-14] MEDS: LORazepam 1 MG/1 ML SYR ED Inj Use IV STA (04:16)
[2024-05-14] MEDS: LACTATED RINGER'S 1,000 ML IV ONE (04:17)
[2024-05-14] MEDS: POTASSIUM CHLORIDE / WTR 10 MEQ/100 ML PLCT IV SCH ×2 (04:17→11:30)
[2024-05-14 04:49] LABS: Amphetamines+Metham, Urine Neg (Neg); Barbiturates, Urine Neg (Neg); Benzodiazepine, Urine Neg (Neg); Cocaine, Urine Neg (Neg); Fentanyl, Urine Neg (Neg); MDMA (Ecstacy), Urine Neg (Neg); Marijuana, Urine Pos (Neg); Methadone, Urine Neg (Neg); Opiate, Urine Neg (Neg); Phencyclidine, Urine Neg (Neg)
[2024-05-14 04:51] LABS: Base Excess VBG 2.9 mEq/L; HCO3 VBG 28 mmol/L; Oxygen Saturation VBG < 60.0 %; PCO2 VBG 43 mmHg (38-50); PO2 VBG 32 mmHg; pH VBG 7.42 (7.36-7.41)
[2024-05-14] MEDS: MULTI-VITAMIN INFUSION 10 ML, THIAMINE HCL 100 MG, FOLIC ACID 1 MG in SODIUM CHLORIDE 0... IV ONE (05:04)
[2024-05-14 05:09] LABS: Basophils # (auto) 0.06 K/uL (0.00-0.20); Basophils % (auto) 0.6 %; Eosinophils # (auto) 0.08 K/uL (0.00-0.50); Eosinophils % (auto) 0.8 %; Hematocrit (blood only) 49.8 % (42.0-52.0); Hemoglobin 16.7 g/dl (14.0-18.0); Immature Granulocytes # (auto) 0.01 K/uL (0.01-0.20); Immature Granulocytes % (auto) 0.1 %; Lymphocytes # (auto) 3.69 K/uL (1.20-3.40); Lymphocytes % (auto) 38.6 %; Mean Corpuscular Hemoglobin 28.2 pg (25.0-34.0); Mean Corpuscular Hgb Conc 33.5 g/dL (32.0-36.0); Mean Corpuscular Volume 84.1 fL (80.0-100.0); Monocytes # (auto) 0.67 K/uL (0.11-0.59); Neutrophils # (auto) 5.05 K/uL (1.40-6.50); Neutrophils % (auto) 52.9 %; Platelet Count 354 K/uL (130-400); RDW Coefficient of Variation 17.5 % (11.5-14.5); RDW Standard Deviation 50.6 fL (36.4-46.3); Red Blood Count 5.92 M/uL (4.70-6.10); White Blood Count 9.56 K/ul (4.8-10.8)
[2024-05-14] MEDS: HYDROmorphone INJ 0.5 MG/0.5 ML SYR IV STA (06:37)
[2024-05-14] MEDS: LORazepam 1 MG in SYRINGE 0.5 ML IV STA (06:38)
[2024-05-14] MEDS: PANTOprazole 40 MG in SYRINGE 0 ML IV ONE (06:38)
--- NOTE | 2024-05-14 07:34 | XRay Report ---
XR chest 1V portable CLINICAL HISTORY: n/v TECHNIQUE: Single frontal radiograph of the chest was obtained. Comparison: Comparison is made to chest radiograph 12/28/2023 FINDINGS: No lines and tubes are seen. The cardiomediastinal silhouette is normal. The lungs are clear. No evid ence of pleural effusion or pneumothorax. IMPRESSION: No acute chest disease. ACT 112: Negative or not required by law. Electronically signed by: Ferdinand Schaefer M.D. 05/14/2024 7:32 AM
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
--- NOTE | 2024-05-14 07:45 | Electrocardiogram Report ---
Test Reason : Blood Pressure : / mmHG Vent. Rate : 067 BPM Atrial Rate : 067 BPM P-R Int : 132 ms QRS Dur : 088 ms QT Int : 418 ms P-R-T Axes : 051 033 003 degrees QTc Int : 441 ms Normal sinus rhythm Abnormal ECG When compared with ECG of 23-APR-2024 10:37, T wave inversion now evident in Anterior leads Confirmed by Kang Osuna ([id number]) on 05/14/2024 7:44:55 AM Referred By: REFERRED SELF Confirmed By:Kang Osuna
[2024-05-14] MEDS ORDERED: LORazepam 3 MG in SYRINGE 1.5 ML IV PRN (10:37)
[2024-05-14] MEDS ORDERED: ONDANSETRON INJ 2 MG/ML 2 ML VIAL IV PRN (10:37)
[2024-05-14] MEDS ORDERED: hydrOXYzine HCl 25 MG TAB PO PRN (10:37)
[2024-05-14] MEDS ORDERED: NITROGLYCERIN SL 0.4 MG/TAB TAB SL PRN (10:37)
[2024-05-14] MEDS ORDERED: Ativan IV Alcohol Withdrawal--Active Protocol IV PRN (10:37)
[2024-05-14] MEDS ORDERED: LORazepam 2 MG in SYRINGE 1 ML IV PRN (10:37)
[2024-05-14] MEDS: SODIUM CHLORIDE 0.9% 1,000 ML IV SCH (11:29)
[2024-05-14] MEDS: FOLIC ACID 1 MG in SYRINGE 9.8 ML IV SCH (11:30)
[2024-05-14] MEDS: GABAPENTIN 600 MG TAB PO ONE (11:30)
[2024-05-14] MEDS: THIAMINE HCL 100 MG in SYRINGE 9 ML IV SCH (11:30)
[2024-05-14] MEDS: MAGNESIUM OXIDE 400 MG TAB PO SCH (11:30)
[2024-05-14] MEDS: CHOLECALCIFEROL 25 MCG (1000 UNITS) TAB PO SCH (11:31)
[2024-05-14] MEDS: ENOXAPARIN INJ 40 MG/0.4 ML SYR SQ SCH (11:31)
--- NOTE | 2024-05-14 11:47 | Communication Note ---
Date of Service: May 14, 2024 Evaluated at bedside. Patient still in ED. Patient reports increased stress at home, prompting relapse. Feels much better with improvement in abdominal pain VS stable Potassium administered UA neg infx, uds +thc on dronibol, etoh 146/1 #Alcohol intoxication -AWSS, gabapentin med tele folate, thiamine #abnormal ekg Trop negative, pending repeat will follow ECHO pending rest of plan per HP
[2024-05-14] MEDS: ESCITALOPRAM OXALATE 10 MG TAB PO SCH (11:58)
[2024-05-14] MEDS: GABAPENTIN 1200MG ALCOHOL WITHDRAWAL LOAD PO STA (11:58)
[2024-05-14 17:02] LABS: BUN Creatinine Ratio 7.6 (10-20); Calcium 8.5 mg/dl (8.6-10.3); Est GFR (African American) 119.3 ml/min; Est GFR (Non-African American) 102.9 ml/min; Potassium 3.8 mmol/L (3.5-5.1)
[2024-05-14 17:07] LABS: Troponin I High Sensitivity 4.3 pg/ml (0-20)
[2024-05-14] MEDS: GABAPENTIN 600 MG TAB PO SCH (17:55)
[2024-05-14] MEDS: FAMOTIDINE 20MG IV PUSH 20 MG/5 ML SYR IV SCH (20:41)
[2024-05-14] MEDS: LORazepam 1 MG in SYRINGE 0.5 ML IV PRN (21:18)
[2024-05-15 07:14] LABS: Albumin Level 3.9 gm/dl (3.4-5.0); Bilirubin Direct 0.2 mg/dl (0-0.2); Bilirubin,Total 1.4 mg/dl (0.2-1.0); Magnesium 1.8 mg/dl (1.7-2.4); Total Protein 6.9 gm/dl (6.0-8.3)
[2024-05-15 07:27] LABS: Estimated Average Glucose 114 mg/dl; Hemoglobin A1C 5.6 % (4.5-5.6)
[2024-05-15 07:35] LABS: Folate (Folic Acid),Ser orPlas > 22.30 ng/ml (>5.38)
[2024-05-15 07:36] LABS: Vitamin B12 667 pg/ml (180-914)
[2024-05-15 07:41] LABS: Hematocrit (blood only) 46.2 % (42.0-52.0); Mean Corpuscular Hemoglobin 28.8 pg (25.0-34.0); Mean Corpuscular Hgb Conc 32.5 g/dL (32.0-36.0); Mean Corpuscular Volume 88.7 fL (80.0-100.0); Mean Platelet Volume 9.9 fL (9.4-12.4); Platelet Count 241 K/uL (130-400); RDW Coefficient of Variation 17.5 % (11.5-14.5); RDW Standard Deviation 55.8 fL (36.4-46.3); Red Blood Count 5.21 M/uL (4.70-6.10); White Blood Count 6.76 K/ul (4.8-10.8)
[2024-05-15 07:42] LABS: Basophils # (auto) 0.04 K/uL (0.00-0.20); Basophils % (auto) 0.6 %; Eosinophils # (auto) 0.11 K/uL (0.00-0.50); Eosinophils % (auto) 1.6 %; Immature Granulocytes # (auto) 0.02 K/uL (0.01-0.20); Immature Granulocytes % (auto) 0.3 %; Lymphocytes # (auto) 1.17 K/uL (1.20-3.40); Lymphocytes % (auto) 17.3 %; Monocytes # (auto) 0.47 K/uL (0.11-0.59); Neutrophils # (auto) 4.95 K/uL (1.40-6.50); Neutrophils % (auto) 73.2 %
[2024-05-15] MEDS: GABAPENTIN 600 MG TAB PO SCH (08:15)
[2024-05-15] MEDS: PANTOprazole 40 MG TAB PO SCH (08:16)
[2024-05-15 12:00] VITALS: RESP 18
[2024-05-15 13:24] VITALS: BP 141/96; TEMP 97.5; O2SAT 96
--- NOTE | 2024-05-15 14:08 | Discharge Summary ---
Discharge Summary Date of Service May 15, 2024 Principal Dx & Hospital Course #1 = Principal Diagnosis (1) Alcoholic ketoacidosis: Mr. Gillis is a 39-year-old male with past medical history significant for HCV s/p treatment, hepatitis steatosis, anal fissures,, borderline personality disorder, latent TB, chronic alcohol abuse, prediabetes, history of C. difficile, history of esophagitis presents with alcoholism and nausea and vomiting and abdominal pain. Patient reports going on a "binger" because of stress with work, the heat, and current interpersonal issues. Patient reported notable improvement with IVF and medications. Denies ay chest pain, palpitations or other acute concerns. Discussed completing withdrawal protocol at home. Patient verbalized understanding. #alcoholic ketoacidosis # high anion gap metabolic acidosis Resolved s/p fluids #nausea/vomiting and abdominal pain possible alcoholic gastritis history of esophagitis Resolved, hgb Recommended continued alcohol abstinence and home PPI use #Hypokalemia resolved #Hypercalcemia ca 10.6 resolved s/p fluids #Alcohol intoxication Complete alcohol withdrawal protocol with gabapentin continue home thiamine and folate #abnormal EKG ECHO and enzyme wnl . # history of depression borderline personality disorder on Lexapro # prediabetes 5.6% Notes For Next Care Provider Medication Changes From Visit Gabapentin 600mg taper x 7 doses Admission HPI Per Admitting Provider 39-year-old male with past medical history significant for HCV s/p treatment, hepatitis steatosis, anal fissures,, borderline personality disorder, latent TB, chronic alcohol abuse, prediabetes, history of C. difficile, history of esophagitis presents with alcoholism and nausea and vomiting and abdominal pain. Patient states he was not drinking for last 1 and a month and again in the last 3 days he started drinking a pink of vodka daily. Last night he was having severe abdominal pain with nausea and vomiting which prompted to come to the ER. Patient thinks he is going through alcohol withdrawal. Request for medicat ions for his abdominal pain and anxiety. Denies any headache. No runny nose or sore throat or cough. No fevers. Denies chest pain or shortness of breath currently. Normal bowel and bladder movements. Hemodynamics are okay. Past Medical history. As mentioned above. Past surgical history. [place] tooth extraction. Colonoscopy. Appendectomy. Social social history. Former smoker. Drinks alcohol sees couple of times a week. History of heroin use in Family history. Patient is adopted Admission Exam Per Admitting Provider General- Not in distress Head- atraumatic Eyes- PERRL. ENT- oropharynx clear Neck- supple, no JVD. Lungs- clear to auscultation no wheezing or crackles. Heart- regular rate and rhythm; no murmur, no gallop. Abdomen- normal bowel sounds, soft, mild abdominal discomfort, No distension. Extremities- no pretibial edema, no erythema seen. Neuro- alert, oriented PERRL, no facial palsy; no dysarthria; moves extremities. Discharge Exam Constitutional WD/WN, vitals as above Cardiovascular RRR, no murmur, no edema Gastrointestinal (Abdomen) normal bowel sounds, soft, nontender, no hepatosplenomegaly Updated Medication List Medication Instructions Recorded Confirmed Type cholecalciferol (vitamin D3) 25 25 mcg PO DAILY 05/14/24 05/14/24 History mcg (1,000 unit) tablet escitalopram oxalate 10 mg tablet 10 mg PO DAILY 05/14/24 05/14/24 History famotidine 20 mg tablet 20 mg PO DAILY 05/14/24 05/14/24 History folic acid 1 mg tablet 1 mg PO DAILY 05/14/24 05/14/24 History gabapentin 100 mg capsule 100 mg PO TID 05/14/24 05/14/24 History hydroxyzine HCl 25 mg tablet 25 mg PO HS PRN Insomnia 05/14/24 05/14/24 History magnesium 250 mg tablet 250 mg PO DAILY 05/14/24 05/14/24 History pantoprazole 20 mg tablet,delayed 20 mg PO DAILY 05/14/24 05/14/24 History release potassium 20 mg chewable tablet 20 mg PO UD 05/14/24 05/14/24 History thiamine HCl (vitamin B1) 100 mg 100 mg PO DAILY 05/14/24 05/14/24 History tablet gabapentin 600 mg tablet 600 mg PO Q8H #7 tabs 05/15/24 Rx Hospital Stay Data Consultations 05/14/24 04:04 ED Decision to Admit Stat Pending Results Patient Have Any Pending Studies at Discharge: No Discharge Instructions Given to Patient (Per Discharging Provider) Please complete your Gabapentin Taper: -Please take at the following times: 05/15: 05/16: 7am, 3pm, 05/17: 11am, 11pm 06/28: 11am, then resume your home gabapentin at bedtime. -After this regimen, please resume your Gabapentin 100mg three times a day. Please continue to pursue abstinence with alcohol Please resume your other medications as directed Total Time Total Time Spent Total Time Spent (In Minutes): 35
[2024-05-15 15:38] LABS: BUN Creatinine Ratio 5.6 (10-20); Calcium 8.8 mg/dl (8.6-10.3); Creatinine Clr Calc Pharmacy 99.9 ml/min; Est GFR (African American) 122.5 ml/min; Est GFR (Non-African American) 105.7 ml/min; Potassium 3.4 mmol/L (3.5-5.1)
[2024-05-15 15:55] VITALS: PULSE 68
[2024-05-16] MEDS ORDERED: GABAPENTIN 600 MG TAB PO SCH (11:00)
[2024-05-16 14:27] LABS: Marijuana Quant, GCMS Urine >5000 ng/mL (<5)
[2024-05-17] MEDS ORDERED: GABAPENTIN 600 MG TAB PO SCH (23:00)
== END 2024-05-15 16:56 | disposition home or self-care (01) | DRG 897 ==
LOC: ED 02:23 → EDINP 06:28 → 2N 10:38

== ENCOUNTER 2024-06-06 19:40 | Inpatient (IN) ==
[2024-06-06] MEDS: diazePAM 5 MG/ML 10ML VIAL IV STA ×2 (20:50→22:51)
[2024-06-06] MEDS: PANTOprazole 40 MG in SYRINGE 0 ML IV ONE (20:53)
[2024-06-06] MEDS: PROMETHAZINE 12.5 MG/50.5 ML BAG IV STA (20:53)
[2024-06-06] MEDS: SODIUM CHLORIDE 0.9% 500 ML IV ONE (20:56)
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
[2024-06-06 21:09] LABS: Albumin Globulin Ratio 1.4 (0.9-2); BUN Creatinine Ratio 15.1 (10-20); Bilirubin,Total 1.1 mg/dl (0.2-1.0); Calcium 9.3 mg/dl (8.6-10.3); Creatinine Clr Calc Pharmacy 92.8 ml/min; Est GFR (African American) 117.8 ml/min; Est GFR (Non-African American) 101.6 ml/min; Globulin 3.7 gm/dl (2.5-4.0); Magnesium 1.5 mg/dl (1.7-2.4); Potassium 3.3 mmol/L (3.5-5.1); Total Protein 8.7 gm/dl (6.0-8.3)
[2024-06-06 21:10] LABS: Basophils # (auto) 0.03 K/uL (0.00-0.20); Basophils % (auto) 0.3 %; Eosinophils # (auto) 0.01 K/uL (0.00-0.50); Eosinophils % (auto) 0.1 %; Hematocrit (blood only) 46.8 % (42.0-52.0); Hemoglobin 15.7 g/dl (14.0-18.0); Immature Granulocytes # (auto) 0.03 K/uL (0.01-0.20); Immature Granulocytes % (auto) 0.3 %; Lymphocytes # (auto) 1.95 K/uL (1.20-3.40); Lymphocytes % (auto) 20.2 %; Mean Corpuscular Hemoglobin 28.8 pg (25.0-34.0); Mean Corpuscular Hgb Conc 33.5 g/dL (32.0-36.0); Mean Corpuscular Volume 85.7 fL (80.0-100.0); Monocytes # (auto) 0.92 K/uL (0.11-0.59); Monocytes % (auto) 9.5 %; Neutrophils % (auto) 69.6 %; Platelet Count 301 K/uL (130-400); RDW Coefficient of Variation 16.3 % (11.5-14.5); RDW Standard Deviation 50.8 fL (36.4-46.3); Red Blood Count 5.46 M/uL (4.70-6.10); White Blood Count 9.64 K/ul (4.8-10.8)
[2024-06-06 21:25] LABS: Thyroid Stimulating Hormone 1.199 uIu/ml (0.300-4.500)
[2024-06-06 21:26] LABS: Appearance Urine Clear (Clear); Bacteria Urine Automated None Seen (None Seen); Bilirubin Urine Negative (Negative); Blood Urine 2+ (Negative); Cast Urine Automated 0-2 /lpf (0-2); Color Urine Yellow; Epithelial Cell Urine Auto 0-2 /hpf (0-2); Glucose Urine UA Negative (Negative); Ketones Urine 2+ (Negative); Leukocyte Esterase Urine Negative (Negative); Nitrite Urine Negative (Negative); Protein Urine 3+ (Negative); RBC Urine Automated 0-2 /hpf (0-2); Specific Gravity Urine 1.023 (1.000-1.030); Urobilinogen Urine Negative (Negative); WBC Urine Automated 0-5 /hpf (0-5); pH Urine 6.5 (4.5-7.5)
[2024-06-06] MEDS: FAMOTIDINE 20MG IV PUSH 20 MG/5 ML SYR IV STA (21:35)
[2024-06-06 22:05] LABS: Amphetamines+Metham, Urine Neg (Neg); Barbiturates, Urine Neg (Neg); Benzodiazepine, Urine Neg (Neg); Cocaine, Urine Neg (Neg); Fentanyl, Urine Neg (Neg); MDMA (Ecstacy), Urine Neg (Neg); Marijuana, Urine Pos (Neg); Methadone, Urine Neg (Neg); Opiate, Urine Neg (Neg); Phencyclidine, Urine Neg (Neg)
[2024-06-06] MEDS: MULTI-VITAMIN INFUSION 10 ML, THIAMINE HCL 100 MG, FOLIC ACID 1 MG in SODIUM CHLORIDE 0... IV ONE (22:14)
[2024-06-06 22:28] LABS: INR 1.1 (0.9-1.1); Partial Thromboplastin Time 27 Seconds (21-31); Prothrombin Time 11.4 Seconds (9.0-12.0)
[2024-06-06] MEDS: POTASSIUM CHLORIDE / WTR 10 MEQ/100 ML PLCT IV ONE (22:51)
[2024-06-06] MEDS: MAGNESIUM SULFATE / D5W 1 GM/100 ML BAG IV STA (22:51)
[2024-06-07] MEDS ORDERED: Ativan IV Alcohol Withdrawal--Active Protocol IV PRN (00:26)
[2024-06-07] MEDS ORDERED: LORazepam 3 MG in SYRINGE 1.5 ML IV PRN (00:26)
[2024-06-07] MEDS ORDERED: GABAPENTIN 1200MG ALCOHOL WITHDRAWAL LOAD PO STA (00:26)
[2024-06-07] MEDS: LORazepam 2 MG in SYRINGE 1 ML IV PRN (00:37)
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
[2024-06-07] MEDS: GABAPENTIN 600 MG TAB PO ONE (03:29)
[2024-06-07] MEDS: POTASSIUM CHLORIDE CRTAB 20 MEQ TABCR PO STA (03:29)
[2024-06-07] MEDS: MAGNESIUM SULFATE / D5W 1 GM/100 ML BAG IV ONE (03:29)
[2024-06-07] MEDS ORDERED: NITROGLYCERIN SL 0.4 MG/TAB TAB SL PRN (04:15)
[2024-06-07] MEDS ORDERED: hydrOXYzine HCl 25 MG TAB PO PRN (04:15)
[2024-06-07] MEDS: D5W AND NSS 1,000 ML IV SCH (05:56)
--- NOTE | 2024-06-07 06:49 | XRay Report ---
XR chest 1V portable CLINICAL HISTORY: weakness TECHNIQUE: Single frontal radiograph of the chest was obtained. Comparison: Comparison is made to chest radiograph 05/26/2024 FINDINGS: No lines and tubes are seen. The cardiomediastinal silhouette is normal. The lungs are clear. No evid ence of pleural effusion or pneumothorax. IMPRESSION: No acute chest disease. ACT 112: Negative or not required by law. Electronically signed by: Ferdinand Schaefer M.D. 06/07/2024 6:48 AM
[2024-06-07 07:14] LABS: Basophils # (auto) 0.03 K/uL (0.00-0.20); Basophils % (auto) 0.5 %; Eosinophils # (auto) 0.04 K/uL (0.00-0.50); Eosinophils % (auto) 0.7 %; Hematocrit (blood only) 42.1 % (42.0-52.0); Hemoglobin 14.1 g/dl (14.0-18.0); Immature Granulocytes # (auto) 0.01 K/uL (0.01-0.20); Immature Granulocytes % (auto) 0.2 %; Lymphocytes # (auto) 1.52 K/uL (1.20-3.40); Lymphocytes % (auto) 25.2 %; Mean Corpuscular Hgb Conc 33.5 g/dL (32.0-36.0); Mean Corpuscular Volume 86.6 fL (80.0-100.0); Mean Platelet Volume 9.3 fL (9.4-12.4); Monocytes # (auto) 0.78 K/uL (0.11-0.59); Monocytes % (auto) 12.9 %; Neutrophils # (auto) 3.65 K/uL (1.40-6.50); Neutrophils % (auto) 60.5 %; Platelet Count 239 K/uL (130-400); RDW Coefficient of Variation 16.2 % (11.5-14.5); RDW Standard Deviation 51.7 fL (36.4-46.3); Red Blood Count 4.86 M/uL (4.70-6.10); White Blood Count 6.03 K/ul (4.8-10.8)
[2024-06-07 07:28] LABS: BUN Creatinine Ratio 13.8 (10-20); Calcium 8.6 mg/dl (8.6-10.3); Creatinine Clr Calc Pharmacy 132.8 ml/min; Est GFR (African American) 140.1 ml/min; Est GFR (Non-African American) 120.8 ml/min; Magnesium 2.1 mg/dl (1.7-2.4); Potassium 3.4 mmol/L (3.5-5.1)
[2024-06-07] MEDS: ONDANSETRON INJ 2 MG/ML 2 ML VIAL IV PRN (08:21)
[2024-06-07] MEDS: LORazepam 1 MG/1 ML SYR ED Inj Use ONE (08:22)
[2024-06-07] MEDS: LORazepam 1 MG in SYRINGE 0.5 ML IV PRN (08:23)
[2024-06-07] MEDS: MAGNESIUM OXIDE 400 MG TAB PO SCH (08:32)
[2024-06-07] MEDS: ENOXAPARIN INJ 40 MG/0.4 ML SYR SQ SCH (08:32)
[2024-06-07] MEDS: ESCITALOPRAM OXALATE 10 MG TAB PO SCH (08:32)
[2024-06-07] MEDS: CHOLECALCIFEROL 25 MCG (1000 UNITS) TAB PO SCH (08:32)
[2024-06-07] MEDS: FAMOTIDINE 20 MG TAB PO SCH (08:32)
[2024-06-07] MEDS: PANTOprazole 40 MG TAB PO SCH (08:32)
[2024-06-07] MEDS: THIAMINE HCL 100 MG in SYRINGE 9 ML IV SCH (08:33)
[2024-06-07] MEDS: FOLIC ACID 1 MG in SYRINGE 9.8 ML IV SCH (08:33)
--- NOTE | 2024-06-07 09:28 | Electrocardiogram Report ---
Test Reason : Blood Pressure : / mmHG Vent. Rate : 117 BPM Atrial Rate : 117 BPM P-R Int : 142 ms QRS Dur : 074 ms QT Int : 324 ms P-R-T Axes : 054 010 023 degrees QTc Int : 451 ms Sinus tachycardia Otherwise normal ECG When compared with ECG of 26-MAY-2024 11:28, No significant change was found Confirmed by Lizandro Taylor ([id number]) on 06/07/2024 9:28:10 AM Referred By: [facility] Confirmed By:Lizandro Taylor
[2024-06-07] MEDS: GABAPENTIN 600 MG TAB PO SCH ×2 (09:53→23:26)
--- NOTE | 2024-06-07 15:48 | Communication Note ---
Date of Service: June 07, 2024 Evaluated patient in ED. Reports feeling much better. Discussed what brought him back to drinking again--reports struggling with his mother's diagnosis of a lzheimers and secludes self in room, often prompting drinking. Denies any chest pain, sob, active nausea or other acute concerns at time of exam #Alcohol intoxication #History of alcohol withdrawal ETOH level 252.8 on admission AWSS ongoing monitor on tele Gabapentin and IV ativan Rest of plan as H&P
[2024-06-07] MEDS: POTASSIUM CHLORIDE CRTAB 20 MEQ TABCR PO SCH (17:54)
--- NOTE | 2024-06-08 15:57 | Discharge Summary ---
Discharge Summary Date of Service June 08, 2024 Principal Dx & Hospital Course #1 = Principal Diagnosis (1) Alcohol withdrawal: 39-year-old male with past medical history significant for HCV s/p treatment, hepatitis steatosis, anal fissures,, borderline personality disorder, latent TB, chronic alcohol abuse, prediabetes, history of C. difficile, history of esophagitis presents with alcoholism and nausea and vomiting. Patient says last drink was 06/05. Patient was admitted on gabapentin taper with ativan prn; however, early the morning of 06/08 patient decided to leave AMA prior to review of labs or discussion. Alcohol withdrawal received banana bag and Valium and Ativan gabapentin alcohol withdrawal protocol and IV Ativan as needed Resume home regimen Previously encouraged cessation nausea and vomiting tolertaing advanced diet Anion gap metabolic acidosis electrolyte abnormalities no labs collected prior to departure history of depression borderline personality disorder on Lexapro Notes For Next Care Provider AMA Medication Changes From Visit none Admission HPI Per Admitting Provider 39-year-old male with past medical history significant for HCV s/p treatment, hepatitis steatosis, anal fissures,, borderline personality disorder, latent TB, chronic alcohol abuse, prediabetes, history of C. difficile, history of esophagitis presents with alcoholism and nausea and vomiting. Patient says last drink was yesterday morning. Seems drinking pint of vodka daily. Was recently in the hospital with similar presentation. Received Valium and Ativan for withdrawal. Currently drowsy. But arousable. Denies any headache. No chest pain or shortness of breath. States has had some nausea. No abdominal pain. Normal bowel and bladder movements. Afebrile. Hemodynamics are okay. Past Medical history. As mentioned above. Past surgical history. [place] tooth extraction. Colonoscopy. Appendectomy. Social social history. Former smoker. Drinks alcohol sees couple of times a week. 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 Patient is adopted Admission Exam Per Admitting Provider General- Drowsy Head- atraumatic Eyes- PERRL,. ENT- oropharynx clear Neck- supple, no JVD. Lungs- clear to auscultation no wheezing or crackles. Heart- regular rhythm; no murmur, no gallop. Abdomen- normal bowel sounds, soft, nontender, no distension. Extremities- no pretibial edema, no erythema seen. Neuro- alert, oriented ,PERRL, no facial palsy; no dysarthria; moves extremities. Discharge Exam Constitutional AMA prior to assessment Updated Medication List Medication Instructions Recorded Confirmed Type cholecalciferol (vitamin D3) 25 25 mcg PO DAILY 05/14/24 06/06/24 History mcg (1,000 unit) tablet escitalopram oxalate 10 mg tablet 10 mg PO DAILY 05/14/24 06/06/24 History famotidine 20 mg tablet 20 mg PO DAILY 05/14/24 06/06/24 History folic acid 1 mg tablet 1 mg PO DAILY 05/14/24 06/06/24 History gabapentin 100 mg capsule 100 mg PO TID 05/14/24 06/06/24 History hydroxyzine HCl 25 mg tablet 25 mg PO HS PRN Insomnia 05/14/24 06/06/24 History magnesium 250 mg tablet 250 mg PO DAILY 05/14/24 06/06/24 History pantoprazole 20 mg tablet,delayed 20 mg PO DAILY 05/14/24 06/06/24 History release thiamine HCl (vitamin B1) 100 mg 100 mg PO DAILY 05/14/24 06/06/24 History tablet potassium gluconate 600 mg (99 mg) 0 mg PO DAILY 06/06/24 06/06/24 History tablet Hospital Stay Data Consultations 06/06/24 22:17 ED Decision to Admit Stat Total Time Total Time Spent Total Time Spent (In Minutes): 0
[2024-06-09] MEDS ORDERED: GABAPENTIN 600 MG TAB PO SCH (04:00)
[2024-06-10] MEDS ORDERED: GABAPENTIN 600 MG TAB PO SCH (16:00)
[2024-06-11 12:53] LABS: Marijuana Quant, GCMS Urine 2498 ng/mL (<5)
== END 2024-06-08 10:40 | disposition left against medical advice (07) | DRG 894 ==
LOC: ED 19:40 → EDINP 06-07 02:46 → 2N 06-07 04:16

== ENCOUNTER 2024-06-08 14:19 | Inpatient (IN) ==
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
[2024-06-08] MEDS: diazePAM 5 MG/ML 10ML VIAL IV STA ×2 (15:34→16:40)
[2024-06-08 16:20] LABS: Appearance Urine Clear (Clear); Bilirubin Urine Negative (Negative); Blood Urine Negative (Negative); Color Urine Yellow; Glucose Urine UA Negative (Negative); Ketones Urine Negative (Negative); Leukocyte Esterase Urine Negative (Negative); Nitrite Urine Negative (Negative); Protein Urine Negative (Negative); Specific Gravity Urine 1.004 (1.000-1.030); Urobilinogen Urine Negative (Negative); pH Urine 6.5 (4.5-7.5)
[2024-06-08 16:20] LABS: Basophils # (auto) 0.04 K/uL (0.00-0.20); Basophils % (auto) 0.6 %; Eosinophils # (auto) 0.01 K/uL (0.00-0.50); Eosinophils % (auto) 0.1 %; Hematocrit (blood only) 43.9 % (42.0-52.0); Hemoglobin 14.4 g/dl (14.0-18.0); Immature Granulocytes # (auto) 0.02 K/uL (0.01-0.20); Immature Granulocytes % (auto) 0.3 %; Lymphocytes # (auto) 0.89 K/uL (1.20-3.40); Lymphocytes % (auto) 13.1 %; Mean Corpuscular Hemoglobin 28.7 pg (25.0-34.0); Mean Corpuscular Hgb Conc 32.8 g/dL (32.0-36.0); Mean Corpuscular Volume 87.6 fL (80.0-100.0); Mean Platelet Volume 9.6 fL (9.4-12.4); Monocytes # (auto) 0.62 K/uL (0.11-0.59); Monocytes % (auto) 9.1 %; Neutrophils # (auto) 5.23 K/uL (1.40-6.50); Neutrophils % (auto) 76.8 %; Platelet Count 267 K/uL (130-400); RDW Coefficient of Variation 15.2 % (11.5-14.5); RDW Standard Deviation 49.5 fL (36.4-46.3); Red Blood Count 5.01 M/uL (4.70-6.10); White Blood Count 6.81 K/ul (4.8-10.8)
[2024-06-08 16:37] LABS: Albumin Globulin Ratio 1.3 (0.9-2); Albumin Level 4.4 gm/dl (3.4-5.0); BUN Creatinine Ratio 2.9 (10-20); Bilirubin,Total 1.2 mg/dl (0.2-1.0); Calcium 9.5 mg/dl (8.6-10.3); Creatinine Clr Calc Pharmacy 84.1 ml/min; Est GFR (African American) 102.9 ml/min; Est GFR (Non-African American) 88.8 ml/min; Globulin 3.5 gm/dl (2.5-4.0); Potassium 3.8 mmol/L (3.5-5.1); Thyroid Stimulating Hormone 1.648 uIu/ml (0.300-4.500); Total Protein 7.9 gm/dl (6.0-8.3)
[2024-06-08 16:38] LABS: Acetaminophen < 3 ug/ml (10-30); Salicylate < 3.0 mg/dl (3.0-30)
[2024-06-08] MEDS: HALOPERIDOL LACTATE 5 MG/ML 1 ML VIAL IV STA (16:41)
[2024-06-08 17:30] LABS: Amphetamines+Metham, Urine Neg (Neg); Barbiturates, Urine Neg (Neg); Benzodiazepine, Urine Neg (Neg); Cocaine, Urine Neg (Neg); Fentanyl, Urine Neg (Neg); MDMA (Ecstacy), Urine Neg (Neg); Marijuana, Urine Pos (Neg); Methadone, Urine Neg (Neg); Opiate, Urine Neg (Neg); Phencyclidine, Urine Neg (Neg)
[2024-06-08] MEDS: MULTI-VITAMIN INFUSION 10 ML, THIAMINE HCL 100 MG, FOLIC ACID 1 MG in SODIUM CHLORIDE 0... IV ONE (17:44)
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
[2024-06-08] MEDS ORDERED: Ativan PO Alcohol Withdrawal--Active Protocol PO PRN (20:40)
[2024-06-08] MEDS ORDERED: LORazepam 3 MG in SYRINGE 1.5 ML IV PRN (20:40)
[2024-06-08] MEDS ORDERED: ALUMINUM/MAGNESIUM SUSP 30 ML UDC PO PRN (20:40)
[2024-06-08] MEDS ORDERED: Ativan IV Alcohol Withdrawal--Active Protocol IV PRN (20:40)
[2024-06-08] MEDS ORDERED: GABAPENTIN 1200MG ALCOHOL WITHDRAWAL LOAD PO STA (20:40)
[2024-06-08] MEDS ORDERED: ACETAMINOPHEN 325 MG TAB PO PRN (20:40)
[2024-06-08] MEDS ORDERED: POLYETHYLENE (MIRALAX) 17 GM PACK PO PRN (20:40)
[2024-06-08] MEDS ORDERED: cloNIDine HCL 0.1 MG TAB PO PRN (20:40)
[2024-06-08] MEDS ORDERED: LORazepam 1 MG TAB PO PRN ×2 (20:40)
[2024-06-08] MEDS: GABAPENTIN 600 MG TAB PO ONE (20:59)
[2024-06-08] MEDS: ENOXAPARIN INJ 40 MG/0.4 ML SYR SQ SCH (21:44)
[2024-06-08] MEDS: LORazepam 1 MG TAB PO PRN (22:00)
[2024-06-08] MEDS: LORazepam 2 MG in SYRINGE 1 ML IV PRN (22:00)
[2024-06-08] MEDS: LACTATED RINGER'S 1,000 ML IV SCH (23:25)
[2024-06-08] MEDS: GABAPENTIN 600 MG TAB PO SCH (23:27)
[2024-06-08] MEDS: ONDANSETRON INJ 2 MG/ML 2 ML VIAL IV PRN (23:27)
[2024-06-08] MEDS: LORazepam 1 MG in SYRINGE 0.5 ML IV PRN (23:28)
[2024-06-09 07:14] LABS: BUN Creatinine Ratio 6.4 (10-20); Calcium 9.1 mg/dl (8.6-10.3); Creatinine Clr Calc Pharmacy 113.6 ml/min; Est GFR (African American) 129.9 ml/min; Est GFR (Non-African American) 112.1 ml/min; Magnesium 1.4 mg/dl (1.7-2.4); Phosphorus 3.5 mg/dl (2.5-4.9); Potassium 3.6 mmol/L (3.5-5.1)
[2024-06-09] MEDS: FOLIC ACID 1 MG TAB PO SCH (08:51)
[2024-06-09] MEDS: THIAMINE HCL 100 MG TAB PO SCH (08:51)
[2024-06-09] MEDS: MAGNESIUM SULFATE / D5W 1 GM/100 ML BAG IV SCH (09:01)
--- NOTE | 2024-06-09 12:23 | Psychiatric Consultation ---
Date of Consultation June 09, 2024 Impression / Recommendations Impression Diagnostically consistent with alcohol use disorder as well as unspecified depression likely a combination of substance-induced as well as adjustment disorder with depressed mood. Acute risk of self-harm is low given denial of SI and no longer with intoxication. Acute risk of harm to others is low given denial of HI, no current symptoms of aggression/irritability. Chronic risk of self-harm and harm to other s is moderate due to past attempt and substance use. Substance use treatment is the most significant modifiable risk factor to reduce acute and chronic risk. The patients 302 warrant has been dispositioned as on exam, the patient is not in need of emergency treatment because he is no longer having SI and is no longer intoxicated. They are no longer requiring 1-on-1 for psychiatric hold. He does not meet involuntary psychiatric criteria, and declines voluntary dual diagnosis nor residential treatment (recommendation). He is willing to consider going to AA meetings and starting naltrexone. He can discuss risks/benefits of remaining in the hospital for alcohol use treatment vs returning home, at this point states he is thinking of returning home as wants to be able to go on walks to cope with withdrawal and cravings. Overall, I spent a total of 45 minutes with this case including review of chart records, review of labwork, direct evaluation of the patient at bedside, counseling the patient, discussion of the patient with the hospitalist provider, discussion with the psychiatric liason during clinical rounds and documentation in the electronic health record. (1) Alcohol use disorder, moderate, dependence: (2) Depression, unspecified: Plan -302 warrant dispositioned -He can leave AMA as doesn't meet involuntary psychiatric commitment criteria and has decision making capacity regarding risks/benefits of leaving AMA vs continued hospitalization -Encouraged him to discuss [facility] as option for [facility] use [facility] vs [facility] -Safety planning via review of crisis resources, discussed involvement with AA Psych History Identifying Data 39 yo man with history of depression, alcohol use disorder, opioid use disorder in sustained remission admitted medically for alcohol withdrawal and intoxication on 302 warrant for statements of SI and HI while intoxicated. Psychiatry consulted for risk assessment/302. Chief Complaint "I feel a lot better today". History of Present Illness El was admitted, after leaving AMA yesterday, for alcohol use and on 302 warrant after presenting to the hospital with elevated UNA and intoxication and making statements of SI and HI in this context and having a knife. Today he is fully oriented, no longer intoxicated and reports feeling better mentally today but experiencing some physical weakness. Denies recalling events leading to admission including mood lability, SI and HI or having knife. He is regretful this happened and acknowledges his alcohol use is problematic. Denies SI today and cites parents and cat as reasons for living. Acknowledges one past SA in his 20s during period of heroin addiction. Admits to recent ETOH use, stating drinks a pint most days. Declines rehab or residential treatment for ETOH but open to starting naltrexone (has a script at home but hasn't started it) and attending AA meetings. Believes experiencing some depression with symptoms of sadness, loneliness at times. Feels his depression mostly causes boredom and this leads him to drink. Reports losing job due to hospitalization in the past related to ETOH use. [facility]. Strongly desires to go home and declines inpatient psychiatric stay or dual diagnosis even if short duration. Allergies Allergy/AdvReac Type Severity Reaction Status Date / Time No Known Allergies Allergy Verified 06/06/24 21:46 Home Medications Medication Instructions Recorded Confirmed Type cholecalciferol (vitamin D3) 25 25 mcg PO DAILY 05/14/24 06/06/24 History mcg (1,000 unit) tablet escitalopram oxalate 10 mg tablet 10 mg PO DAILY 05/14/24 06/06/24 History famotidine 20 mg tablet 20 mg PO DAILY 05/14/24 06/06/24 History folic acid 1 mg tablet 1 mg PO DAILY 05/14/24 06/06/24 History gabapentin 100 mg capsule 100 mg PO TID 05/14/24 06/06/24 History hydroxyzine HCl 25 mg tablet 25 mg PO HS PRN Insomnia 05/14/24 06/06/24 History magnesium 250 mg tablet 250 mg PO DAILY 05/14/24 06/06/24 History pantoprazole 20 mg tablet,delayed 20 mg PO DAILY 05/14/24 06/06/24 History release thiamine HCl (vitamin B1) 100 mg 100 mg PO DAILY 05/14/24 06/06/24 History tablet potassium gluconate 600 mg (99 mg) 0 mg PO DAILY 06/06/24 06/06/24 History tablet Patient History Medical History Intractable vomiting Alcoholic ketoacidosis History of illicit drug use 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 History of anesthesia reaction woke up during colonoscopy History of anal fissures Surgical History History of wisdom tooth extraction History of colonoscopy Family History Other No family history of adverse response to anesthesia Social History Smoking Status: Former smoker Tobacco Type: Cigarettes Cigarettes Per Day: smokes marijuana; Second Hand Exposure: No; Do You Dip or Chew Tobacco: No; Hx Alcohol Use: Yes Alcohol type: hard liquor Alcohol Intake Frequency Comment: vodka, approx 1 pint daily Hx Substance Use: Yes Last Used Substance: Unknown Last Used Substance Other:: yesterday Preferred Language: [place] Communication Ability: Effective C Java Developer Required: No Beliefs That Will Affect Care: None Current Living Situation: Parent Current Living Situation Comment: at home with parents Other Information That Helps Us Care for You: No Feels Safe at Home: Yes Safety Concerns: Feels Safe At This Time Assistive Devices: None Physical Exam Psychiatric: Orientation: alert and oriented x 3 Apperance: appropriately dressed and appropriately groomed Eye Contact: good eye contact Motor Behavior: no abnormal motor movements Speech: normal rate/rhythm/volume of speech Affect: + constricted affect Mood: + depressed mood Thought Process: goal directed thought process Thought Content: reality based without delusions Suicidal Thoughts: denies suicidal thoughts, denies suicidal plan and denies suicidal intent Homicidal Thoughts: denies homicidal thoughts Hallucinations: no auditory hallucinations and no visual hallucinations Cognition: remote memory grossly intact, attention grossly intact and language grossly intact; + recent memory not intact Estimated Intelligence: consistent with education level Insight: + fair insight Judgment: + limited judgement Vital Signs (Past 24 Hours): Last Vital Signs Temp 37.1 C 06/09/24 11:03 Pulse 82 06/09/24 11:03 Resp 14 06/09/24 11:03 BP 134/80 06/09/24 11:03 Pulse Ox 94 06/09/24 11:03 O2 Del Method Room Air 06/09/24 11:03 Results & Data (PSY) Medications Administered Enoxaparin Sodium (Enoxaparin Inj 40 Mg/0.4 Ml Syr) 40 mg SQ Q24H [facility] Stop: 07/08/24 19:59 Last Admin: 06/08/24 21:44 Dose: Not Given Documented By: HIPOLITO Folic Acid (Folic Acid 1 Mg Tab) 1 mg PO QAM RYAN Stop: 07/09/24 08:59 Last Admin: 06/09/24 08:51 Dose: 1 mg Documented By: JEFF Lactated Ringer's (Lr) 1,000 mls @ 75 mls/hr IV .[id number] [facility] Stop: 07/08/24 20:39 Last Admin: 06/08/24 23:25 Dose: 75 mls/hr Documented By: SHAUNNA Lorazepam 1 mg/ Syringe 1 mls @ 2 mls/min IV UD PRN; Protocol PRN Reason: EtOH Withdrawal AWSS Score 6,7 Stop: 07/08/24 20:39 Last Admin: 06/09/24 06:35 Dose: 2 mls/min Documented By: Admin: 06/08/24 23:28 Dose: 2 mls/min Documented By: SHAUNNA Lorazepam 2 mg/ Syringe 2 mls @ 2 mls/min IV UD PRN; Protocol PRN Reason: EtOH Withdrawal AWSS Score 8,9 Stop: 07/08/24 20:39 Last Admin: 06/09/24 01:52 Dose: 2 mls/min Documented By: Admin: 06/08/24 22:00 Dose: 2 mls/min Documented By: HIPOLITO Magnesium Sulfate/Dextrose (Magnesium Sulfate / D5w) 1 gm in 100 mls @ 50 mls/hr IV Q2H [facility] Stop: 06/09/24 14:14 Last Admin: 06/09/24 11:03 Dose: 50 mls/hr Documented By: Infusion: 06/09/24 11:01 Dose: Infused Documented By: Admin: 06/09/24 09:01 Dose: 50 mls/hr Documented By: JEFF Lorazepam (Lorazepam 1 Mg Tab) 2 mg PO UD PRN; Protocol PRN Reason: EtOH Withdrawal AWSS Score 8,9 Stop: 07/08/24 20:39 Last Admin: 06/08/24 22:00 Dose: 2 mg Documented By: HIPOLITO Ondansetron HCl (Ondansetron Inj 2 Mg/Ml 2 Ml Vial) 4 mg IV Q6H PRN PRN Reason: Nausea And Vomiting Stop: 07/08/24 22:46 Last Admin: 06/08/24 23:27 Dose: 4 mg Documented By: SHAUNNA Thiamine HCl (Thiamine Hcl 100 Mg Tab) 100 mg PO QAM RYAN Stop: 07/09/24 08:59 Last Admin: 06/09/24 08:51 Dose: 100 mg Documented By: MMP Coding Level of Care Code 15395 IN/OBS CONSULT LVL 3,45M Diagnoses Alcohol use disorder, moderate, dependence F10.20 Depression, unspecified F32.A
[2024-06-09] MEDS: GABAPENTIN 600 MG TAB PO SCH (15:12)
[2024-06-09] MEDS ORDERED: hydrOXYzine HCl 25 MG TAB PO PRN (15:39)
--- NOTE | 2024-06-09 15:43 | Hospitalist Progress Note ---
Date of Service June 09, 2024 Assessment & Plan (1) Alcohol withdrawal: (2) Alcohol intoxication: (3) Alcohol abuse: (4) Alcoholic ketoacidosis: Plan Mr. Gillis is a 39-year-old male with past medical history significant for HCV s/p treatment, hepatitis steatosis, anal fissures,, borderline personality disorder, latent TB, chronic alcohol abuse, prediabetes, history of C. difficile, history of esophagitis admitted on 06/08 after leaving AMA on same day for admission for management of alcoholic ketoacidosis and alcohol withdrawal. Patient anxious and eager to leave today. Discussed patient is still requiring IV medications and should stay for continued monitoring given desire to remain abstinent. Initially admitted on 302 2 SI; however, 302 dispositioned today. #Alcohol withdrawal Continue gabapentin alcohol withdrawal protocol and IV Ativan as needed Resume home regimen Previously encouraged cessation, resources offered #AGMA iso alcohol intoxication resolved, Trend BMP #Hypomagnesemia continue replacement, lab in am #Depressio #BPD continue lexapro and hydroxyzine at bedtime DVT lovenox dispo remain on med tele Admission and Anticipated Discharge Date Admission Date: June 08, 2024 Subjective Left AMA day prior, readmitted for alcohol withdrawal Reports ongoing anxiety and frustrations with addiction Patient states he is fixated on going home and wishes to leave as soon as possible Discussed concerns for readmission and encouraged to continue to stay especially while requiring IV medications Patient verbalized understanding and agrees to stay overnight for continued monitoring Physical Exam Constitutional: anxious, tearful Respiratory: normal respiratory effort, lungs clear to auscultation Cardiovascular: tachycardic Results & Data Results & Data Vital Signs (Past 12 Hours) Vital Signs Temp Pulse Pulse Resp BP BP Pulse Ox 06/09/24 15:27 36.9 C 103 H 17 154/99 H 94 06/09/24 14:28 92 H 06/09/24 11:03 37.1 C 82 14 134/80 94 06/09/24 07:38 98 H 06/09/24 06:23 36.8 C 99 H 14 154/101 H 95 O2 Del Method 06/09/24 15:27 Room Air 06/09/24 14:28 06/09/24 11:03 Room Air 06/09/24 07:38 06/09/24 06:23 Room Air Laboratory Results Short CBC 06/08/24 Range/Units 15:24 WBC 6.81 (4.8-10.8) K/ul Hgb 14.4 (14.0-18.0) g/dl Hct 43.9 (42.0-52.0) % Plt Count 267 (130-400) K/uL BMP 06/08/24 06/09/24 15:24 05:39 Sodium 141 139 Potassium 3.8 3.6 Chloride 107 102 Carbon Dioxide 20 L 27 BUN 3 L 5 L Creatinine 1.04 D 0.78 Glucose 129 H 107 H Calcium 9.5 9.1 Liver Function 06/08/24 Range/Units 15:24 Total Bilirubin 1.2 H (0.2-1.0) mg/dl AST 55 H (13-39) U/L ALT 38 (7-52) U/L Alkaline Phosphatase 85 (34-104) U/L Albumin 4.4 (3.4-5.0) gm/dl Urine 06/08/24 Range/Units 15:27 Urine Color Yellow Urine Appearance Clear (Clear) Urine pH 6.5 (4.5-7.5) Ur Specific [place] 1.004 (1.000-1.030) Urine Protein Negative (Negative) Urine Glucose (UA) Negative (Negative) Medications Administered Home Medications Medication Instructions Recorded Confirmed Last Taken cholecalciferol (vitamin D3) 25 25 mcg PO DAILY 05/14/24 06/06/24 06/06/24 mcg (1,000 unit) tablet escitalopram oxalate 10 mg tablet 10 mg PO DAILY 05/14/24 06/06/24 06/06/24 famotidine 20 mg tablet 20 mg PO DAILY 05/14/24 06/06/24 06/06/24 folic acid 1 mg tablet 1 mg PO DAILY 05/14/24 06/06/24 06/06/24 gabapentin 100 mg capsule 100 mg PO TID 05/14/24 06/06/24 06/06/24 hydroxyzine HCl 25 mg tablet 25 mg PO HS PRN Insomnia 05/14/24 06/06/24 06/06/24 magnesium 250 mg tablet 250 mg PO DAILY 05/14/24 06/06/24 06/06/24 pantoprazole 20 mg tablet,delayed 20 mg PO DAILY 05/14/24 06/06/24 06/06/24 release thiamine HCl (vitamin B1) 100 mg 100 mg PO DAILY 05/14/24 06/06/24 06/06/24 tablet potassium gluconate 600 mg (99 mg) 0 mg PO DAILY 06/06/24 06/06/24 06/06/24 tablet Active Medications Generic Name Dose Route Start Last Admin Trade Name Bhavesh PRN Reason Stop Dose Admin Enoxaparin Sodium 40 mg 06/08/24 20:00 06/08/24 21:44 Enoxaparin Inj 40 Mg/0.4 Ml Syr SQ 07/08/24 19:59 Not Given Q24H RYAN Folic Acid 1 mg 06/09/24 09:00 06/09/24 08:51 Folic Acid 1 Mg Tab PO 07/09/24 08:59 1 mg QAM RYAN Administration Gabapentin 600 mg 06/09/24 14:00 06/09/24 15:12 Gabapentin 600 Mg Tab PO 06/10/24 06:01 600 mg Q8H RYAN Administration Lactated Ringer's 1,000 mls @ 75 mls/hr 06/08/24 20:40 06/08/24 23:25 Lr IV 07/08/24 20:39 75 mls/hr .[id number] RYAN Administration Lorazepam 1 mg/ Syringe 1 mls @ 2 mls/min 06/08/24 20:40 06/09/24 13:32 IV 07/08/24 20:39 2 mls/min UD PRN Administration EtOH Withdrawal AWSS Score 6,7 Protocol Lorazepam 2 mg/ Syringe 2 mls @ 2 mls/min 06/08/24 20:40 06/09/24 01:52 IV 07/08/24 20:39 2 mls/min UD PRN Administration EtOH Withdrawal AWSS Score 8,9 Protocol Lorazepam 2 mg 06/08/24 20:40 06/08/24 22:00 Lorazepam 1 Mg Tab PO 07/08/24 20:39 2 mg UD PRN Administration EtOH Withdrawal AWSS Score 8,9 Protocol Ondansetron HCl 4 mg 06/08/24 22:47 06/08/24 23:27 Ondansetron Inj 2 Mg/Ml 2 Ml Vial IV 07/08/24 22:46 4 mg Q6H PRN Administration Nausea And Vomiting Thiamine HCl 100 mg 06/09/24 09:00 06/09/24 08:51 Thiamine Hcl 100 Mg Tab PO 07/09/24 08:59 100 mg QAM RYAN Administration (1) Alcohol withdrawal Complication of substance-induced condition: with unspecified complication Qualified Code(s): F10.939 - Alcohol use, unspecified with withdrawal, unspecified
[2024-06-09] MEDS: OLANZapine 5 MG TABLET PO STA (16:05)
[2024-06-10] MEDS ORDERED: ESCITALOPRAM OXALATE 10 MG TAB PO SCH (09:00)
[2024-06-10] MEDS ORDERED: MAGNESIUM OXIDE 400 MG TAB PO SCH (09:00)
[2024-06-10] MEDS ORDERED: PANTOprazole 40 MG TAB PO SCH (09:00)
[2024-06-10] MEDS ORDERED: GABAPENTIN 600 MG TAB PO SCH (18:00)
[2024-06-10 23:07] LABS: Marijuana Quant, GCMS Urine 545 ng/mL (<5)
[2024-06-12] MEDS ORDERED: GABAPENTIN 600 MG TAB PO SCH (06:00)
--- NOTE | 2024-06-12 14:10 | Discharge Summary ---
Discharge Summary Date of Service June 12, 2024 Principal Dx & Hospital Course #1 = Principal Diagnosis (1) Alcohol withdrawal: (2) Alcohol intoxication: (3) Alcohol abuse: (4) Alcoholic ketoacidosis: Plan Mr. Gillis is a 39-year-old male with past medical history significant for HCV s/p treatment, hepatitis steatosis, anal fissures,, borderline personality disorder, latent TB, chronic alcohol abuse, prediabetes, history of C. difficile, history of esophagitis admitted on 06/08 after leaving AMA on same day for admission for management of alcoholic ketoacidosis and alcohol withdrawal. Patient anxious and eager to leave today. Discussed patient is still requiring IV medications and should stay for continued monitoring given desire to remain abstinent. Initially admitted on 302 12/23 SI; however, 302 dispositioned today. After multiple counselling attempts, patient opted to leave AMA once more. #Alcohol withdrawal Continue gabapentin alcohol withdrawal protocol and IV Ativan as needed Resume home regimen Previously encouraged cessation, resources offered #AGMA iso alcohol intoxication resolved, Trend BMP #Hypomagnesemia continue replacement, lab in am #Depressio #BPD continue lexapro and hydroxyzine at bedtime Notes For Next Care Provider Medication Changes From Visit AMA Admission HPI Per Admitting Provider I refer you to the history and physical completed by Dr. Bartlett on 06/07/2024 for further details. The patient was admitted for acute alcohol withdrawal. This morning he signed out AGAINST MEDICAL ADVICE because he was disappointed that he was not getting his medicines. This was complicated by worldwide outages in the computer systems. Patient went home and drank a pint of vodka. He became intoxicated and quite aggressive. His father brought him back into the emergency room for evaluation. In the emergency room his alcohol level was elevated. He was given Haldol and Ativan. He was referred to our service for ongoing management of his alcohol withdrawal. Time my evaluation the patient was asleep. He did awaken with some vigorous stimulation. When he awoke he was pleasant and agreeable to ongoing hospitalization. Explained to him that the computer issues had resolved and that he should be able to be getting his medicines. He underneath stands need for hospitalization and the risk for not staying in the hospital. Admission Exam Per Admitting Provider Constitutional: Asleep but able to be awakened, nontoxic in appearance HEENT: Mucous membranes moist. Sclera clear Neck: Soft, no adenopathy Lungs: Clear to auscultation, decreased, no wheezes rales or rhonchi CV: S1-S2, regular, tachycardic Abdomen: Soft, nontender, nondistended Extremities: No significant edema Musculoskeletal: No significant joint tenderness Neuro: No focal deficits Psych: Cooperative, labile mood Discharge Exam Constitutional Exam per progress note, left ama Updated Medication List Medication Instructions Recorded Confirmed Type cholecalciferol (vitamin D3) 25 25 mcg PO DAILY 05/14/24 06/06/24 History mcg (1,000 unit) tablet escitalopram oxalate 10 mg tablet 10 mg PO DAILY 05/14/24 06/06/24 History famotidine 20 mg tablet 20 mg PO DAILY 05/14/24 06/06/24 History folic acid 1 mg tablet 1 mg PO DAILY 05/14/24 06/06/24 History gabapentin 100 mg capsule 100 mg PO TID 05/14/24 06/06/24 History hydroxyzine HCl 25 mg tablet 25 mg PO HS PRN Insomnia 05/14/24 06/06/24 History magnesium 250 mg tablet 250 mg PO DAILY 05/14/24 06/06/24 History pantoprazole 20 mg tablet,delayed 20 mg PO DAILY 05/14/24 06/06/24 History release thiamine HCl (vitamin B1) 100 mg 100 mg PO DAILY 05/14/24 06/06/24 History tablet potassium gluconate 600 mg (99 mg) 0 mg PO DAILY 06/06/24 06/06/24 History tablet Hospital Stay Data Consultations 06/08/24 17:41 ED Decision to Admit Stat 06/09/24 01:05 Consult Behavioral Health Liaison Routine 06/09/24 11:05 Consult Psychiatry Routine Total Time Total Time Spent Total Time Spent (In Minutes): 0
== END 2024-06-09 17:58 | disposition left against medical advice (07) | DRG 894 ==
LOC: ED 14:19 → EDINP 19:57 → SUATTDRO 19:57 → 2W 22:07
DX: Z79.899 Other long term (current) drug therapy; Z87.891 Personal history of nicotine dependence; F10.229 Alcohol dependence with intoxication, unspecified; E83.42 Hypomagnesemia; R73.03 Prediabetes; F32.A Depression, unspecified; Z86.19 Personal history of other infectious and parasitic diseases; F10.239 Alcohol dependence with withdrawal, unspecified; Y90.9 Presence of alcohol in blood, level not specified; E87.29 Other acidosis

== ENCOUNTER 2024-06-30 17:02 | Inpatient (IN) ==
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
[2024-06-30 18:38] LABS: Basophils # (auto) 0.05 K/uL (0.00-0.20); Basophils % (auto) 1.1 %; Eosinophils # (auto) 0.02 K/uL (0.00-0.50); Eosinophils % (auto) 0.4 %; Hemoglobin 14.4 g/dl (14.0-18.0); Immature Granulocytes # (auto) 0.05 K/uL (0.01-0.20); Immature Granulocytes % (auto) 1.1 %; Lymphocytes # (auto) 1.86 K/uL (1.20-3.40); Lymphocytes % (auto) 39.3 %; Mean Corpuscular Hemoglobin 28.5 pg (25.0-34.0); Mean Corpuscular Hgb Conc 32.7 g/dL (32.0-36.0); Mean Platelet Volume 9.3 fL (9.4-12.4); Monocytes # (auto) 0.27 K/uL (0.11-0.59); Monocytes % (auto) 5.7 %; Neutrophils # (auto) 2.48 K/uL (1.40-6.50); Neutrophils % (auto) 52.4 %; Platelet Count 344 K/uL (130-400); RDW Coefficient of Variation 15.8 % (11.5-14.5); RDW Standard Deviation 49.6 fL (36.4-46.3); Red Blood Count 5.06 M/uL (4.70-6.10); White Blood Count 4.73 K/ul (4.8-10.8)
[2024-06-30 18:54] LABS: Albumin Globulin Ratio 1.2 (0.9-2); BUN Creatinine Ratio 13.7 (10-20); Bilirubin,Total 0.2 mg/dl (0.2-1.0); Calcium 8.1 mg/dl (8.6-10.3); Creatinine Clr Calc Pharmacy 137.5 ml/min; Est GFR (African American) 133.5 ml/min; Est GFR (Non-African American) 115.2 ml/min; Globulin 3.3 gm/dl (2.5-4.0); Potassium 3.7 mmol/L (3.5-5.1); Total Protein 7.3 gm/dl (6.0-8.3)
--- NOTE | 2024-06-30 18:57 | XRay Report ---
XR chest 1V portable CLINICAL HISTORY: Hypoxia. COMPARISON STUDY: Chest CT December 09, 2023. Chest radiograph June 06, 2024. FINDINGS: There are low lung volumes. Left basilar opacity is present. No airspace opacities within t he right lung are noted. Cardiomediastinal silhouette is stable. Mild diffuse interstitial thickening is noted. There is no pneumothorax or pleural effusion. IMPRESSION: Left basilar opacity suspicious for pneumonia. Radiographic follow-up to ensure resolutio n is recommended. ACT 112: Negative or not required by law. Electronically signed by: Saad Singh M.D. 06/30/2024 6:54 PM
[2024-06-30] MEDS: LORazepam 0.5 MG in SYRINGE 0.25 ML IV STA (22:17)
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
[2024-06-30] MEDS: PIPERACILLIN/TAZOBACTAM 4.5 GM/100 ML BAG IV ONE (23:13)
[2024-06-30] MEDS ORDERED: NITROGLYCERIN SL 0.4 MG/TAB TAB SL PRN (23:51)
[2024-06-30] MEDS ORDERED: GABAPENTIN 1200MG ALCOHOL WITHDRAWAL LOAD PO STA (23:51)
[2024-06-30] MEDS ORDERED: LORazepam 3 MG in SYRINGE 1.5 ML IV PRN (23:51)
[2024-06-30] MEDS ORDERED: Ativan IV Alcohol Withdrawal--Active Protocol IV PRN (23:51)
[2024-06-30] MEDS ORDERED: LORazepam 1 MG in SYRINGE 0.5 ML IV PRN (23:51)
[2024-06-30] MEDS ORDERED: ONDANSETRON INJ 2 MG/ML 2 ML VIAL IV PRN (23:51)
[2024-07-01 00:19] VITALS: TEMP 98.1
[2024-07-01] MEDS: GABAPENTIN 600 MG TAB PO ONE (00:26)
[2024-07-01] MEDS: hydrOXYzine HCl 25 MG TAB PO PRN (00:26)
[2024-07-01] MEDS: LORazepam 2 MG in SYRINGE 1 ML IV PRN (00:28)
[2024-07-01] MEDS: MULTI-VITAMIN INFUSION 10 ML, THIAMINE HCL 100 MG, FOLIC ACID 1 MG in SODIUM CHLORIDE 0... IV ONE (00:46)
[2024-07-01] MEDS: SODIUM CHLORIDE 0.9% 1,000 ML IV SCH (02:34)
[2024-07-01] MEDS: ENOXAPARIN INJ 40 MG/0.4 ML SYR SQ SCH (05:49)
[2024-07-01] MEDS: GABAPENTIN 600 MG TAB PO SCH (05:49)
[2024-07-01 06:54] LABS: Albumin Level 3.6 gm/dl (3.4-5.0); Bilirubin Direct 0.1 mg/dl (0-0.2); Bilirubin,Total 0.4 mg/dl (0.2-1.0); Total Protein 6.6 gm/dl (6.0-8.3)
[2024-07-01 07:16] LABS: Folate (Folic Acid),Ser orPlas > 22.30 ng/ml (>5.38)
[2024-07-01 07:17] LABS: Vitamin B12 580 pg/ml (180-914)
[2024-07-01 07:30] VITALS: PULSE 83; RESP 18; O2SAT 95
[2024-07-01] MEDS: THIAMINE HCL 100 MG TAB PO SCH (08:13)
[2024-07-01] MEDS: FOLIC ACID 1 MG TAB PO SCH (08:13)
[2024-07-01] MEDS: CHOLECALCIFEROL 25 MCG (1000 UNITS) TAB PO SCH (08:13)
[2024-07-01] MEDS: ESCITALOPRAM OXALATE 10 MG TAB PO SCH (08:13)
[2024-07-01] MEDS: FAMOTIDINE 20 MG TAB PO SCH (08:13)
[2024-07-01] MEDS: MAGNESIUM OXIDE 400 MG TAB PO SCH (08:13)
[2024-07-01] MEDS: PANTOprazole 40 MG TAB PO SCH (08:13)
[2024-07-01] MEDS ORDERED: LORazepam 1 MG TAB PO PRN (09:17)
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
[2024-07-01 10:35] VITALS: BP 128/82
[2024-07-01] MEDS ORDERED: hydrOXYzine HCl 25 MG TAB PO ONE (10:49)
[2024-07-01] MEDS ORDERED: GABAPENTIN 600 MG TAB PO SCH (22:00)
[2024-07-02] MEDS ORDERED: GABAPENTIN 600 MG TAB PO SCH (23:30)
[2024-07-04] MEDS ORDERED: GABAPENTIN 600 MG TAB PO SCH (11:30)
== END 2024-07-01 10:56 | disposition home or self-care (01) | DRG 896 ==
LOC: ED 17:02 → SUATTDRO 22:33 → 2W 22:33

== ENCOUNTER 2025-03-10 20:30 | Inpatient (IN) ==
[2025-03-10] MEDS ORDERED: PANTOPRAZOLE BOLUS/DRIP IV STA (20:51)
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
[2025-03-10] MEDS: PROMETHAZINE 25 MG/51 ML BAG IV STA (21:00)
[2025-03-10] MEDS: SODIUM CHLORIDE 0.9% 1,000 ML IV SCH (21:01)
[2025-03-10] MEDS: OPTIRAY 320 100ml IV ONE (21:28)
[2025-03-10 21:38] LABS: Basophils # (auto) 0.02 K/uL (0.00-0.20); Basophils % (auto) 0.1 %; Hemoglobin 16.7 g/dl (14.0-18.0); Immature Granulocytes # (auto) 0.09 K/uL (0.01-0.20); Immature Granulocytes % (auto) 0.6 %; Lymphocytes # (auto) 2.12 K/uL (1.20-3.40); Lymphocytes % (auto) 13.6 %; Mean Corpuscular Hemoglobin 30.6 pg (25.0-34.0); Mean Corpuscular Hgb Conc 35.5 g/dL (32.0-36.0); Mean Corpuscular Volume 86.1 fL (80.0-100.0); Mean Platelet Volume 9.3 fL (9.4-12.4); Monocytes # (auto) 1.37 K/uL (0.11-0.59); Monocytes % (auto) 8.8 %; Neutrophils # (auto) 11.94 K/uL (1.40-6.50); Neutrophils % (auto) 76.9 %; Platelet Count 254 K/uL (130-400); RDW Standard Deviation 43.8 fL (36.4-46.3); Red Blood Count 5.46 M/uL (4.70-6.10); White Blood Count 15.54 K/ul (4.8-10.8)
[2025-03-10 21:45] LABS: Appearance Urine Clear (Clear); Bacteria Urine Automated None Seen (None Seen); Bilirubin Urine Negative (Negative); Blood Urine Negative (Negative); Cast Urine Automated 0-2 /lpf (0-2); Color Urine Yellow; Epithelial Cell Urine Auto 0-2 /hpf (0-2); Glucose Urine UA Negative (Negative); Ketones Urine 3+ (Negative); Leukocyte Esterase Urine Negative (Negative); Nitrite Urine Negative (Negative); Protein Urine 1+ (Negative); RBC Urine Automated 0-2 /hpf (0-2); Specific Gravity Urine 1.019 (1.000-1.030); Urobilinogen Urine Negative (Negative); WBC Urine Automated 0-5 /hpf (0-5); pH Urine 5.5 (4.5-7.5)
[2025-03-10 21:57] LABS: Albumin Globulin Ratio 1.5 (0.9-2); Albumin Level 4.9 gm/dl (3.4-5.0); Bilirubin,Total 1.3 mg/dl (0.2-1.0); Calcium 8.9 mg/dl (8.6-10.3); Creatinine Clr Calc Pharmacy 98.7 ml/min; Globulin 3.3 gm/dl (2.5-4.0); Potassium 3.6 mmol/L (3.5-5.1); Total Protein 8.2 gm/dl (6.0-8.3)
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
[2025-03-10] MEDS ORDERED: LORazepam 2 MG/1 ML VIAL IV PRN (22:22)
[2025-03-10] MEDS ORDERED: ACETAMINOPHEN 500 MG TAB PO PRN (22:23)
[2025-03-10] MEDS ORDERED: oxyCODONE HCL IR 5 MG TAB (IMMEDIATE RELEASE) PO PRN (22:23)
[2025-03-10 22:29] LABS: Magnesium 1.7 mg/dl (1.7-2.4)
[2025-03-10] MEDS: THIAMINE HCL 100 MG in SYRINGE 9 ML IV STA (23:00)
[2025-03-10] MEDS: FOLIC ACID 1 MG in SYRINGE 9.8 ML IV STA (23:01)
[2025-03-10] MEDS: PANTOprazole 80 MG in DEXTROSE 5% 100 ML IV ONE (23:04)
[2025-03-10] MEDS: PANTOprazole 40 MG in DEXTROSE 5% MINI-B 100 ML IV SCH (23:05)
--- NOTE | 2025-03-10 23:11 | CT Scan Report ---
Exam(s): CT ABDOMEN + PELVIS With Contrast IV Amt: 93 ml opti 320 EXAM: CT Abdomen and Pelvis With Intravenous Contrast CLINICAL HISTORY: Reason for exam: mid abd pain vomiting blood. TECHNIQUE: Axial computed tomography images of the abdomen and pelvis with intravenous contrast. CTDI is 24.91 mGy and DLP is 1202.81 mGy-cm. Automated exposure control was utilized for the study. A dose lowering technique was utilized adhering to the principles of ALARA. CONTRAST: Patient received 93 ml opti 320 of IV contrast COMPARISON: 04/23/24 FINDINGS: Lung bases: Unremarkable. Mediastinum: Lower esophageal wall thickening suggesting esophagitis. ABDOMEN: Liver: Hepatic steatosis. Gallbladder and bile ducts: Unremarkable. No calcified stones. No ductal dilation. Pancreas: Unremarkable. No mass. No ductal dilation. Spleen: Unremarkable. No splenomegaly. Adrenals: Unremarkable. No mass. Kidneys and ureters: Unremarkable. No solid mass. No hydronephrosis. Stomach and bowel: No bowel obstruction. Mild wall thickening at the anorectal junction appears similar to prior exam. PELVIS: Appendix: Appendix not identified. No secondary signs of appendicitis. Bladder: Incompletely distended urinary bladder. Reproductive: Unremarkable as visualized. ABDOMEN and PELVIS: Intraperitoneal space: Unremarkable. No free air, significant free fluid, or fluid collection. Bones/joints: Disc degeneration L1-L2 with disc-osteophyte complex producing moderate central canal stenosis. No acute fracture or dislocation. Soft tissues: Unremarkable. Vasculature: Unremarkable. No abdominal aortic aneurysm. Lymph nodes: Unremarkable. No enlarged lymph nodes. IMPRESSION: 1. Lower esophageal wall thickening suggesting esophagitis. This appears worsened from prior. 2. Mild wall thickening at the anorectal junction appears similar to prior exam. Electronically signed by: Agueda Stanton M.D. 03/10/25 23:10 PM
[2025-03-10] MEDS: SODIUM CHLORIDE 0.45 % 1,000 ML IV ONE (23:18)
[2025-03-11 01:39] LABS: Hematocrit (blood only) 40.1 % (42.0-52.0); Hemoglobin 14.2 g/dl (14.0-18.0)
[2025-03-11 07:44] LABS: Basophils # (auto) 0.02 K/uL (0.00-0.20); Basophils % (auto) 0.2 %; Eosinophils # (auto) 0.02 K/uL (0.00-0.50); Eosinophils % (auto) 0.2 %; Hematocrit (blood only) 41.2 % (42.0-52.0); Hemoglobin 14.4 g/dl (14.0-18.0); Immature Granulocytes # (auto) 0.05 K/uL (0.01-0.20); Immature Granulocytes % (auto) 0.5 %; Lymphocytes # (auto) 2.11 K/uL (1.20-3.40); Lymphocytes % (auto) 20.6 %; Mean Corpuscular Hemoglobin 30.1 pg (25.0-34.0); Mean Platelet Volume 9.3 fL (9.4-12.4); Monocytes % (auto) 10.8 %; Neutrophils # (auto) 6.93 K/uL (1.40-6.50); Neutrophils % (auto) 67.7 %; Platelet Count 190 K/uL (130-400); RDW Standard Deviation 44.1 fL (36.4-46.3); Red Blood Count 4.79 M/uL (4.70-6.10); White Blood Count 10.23 K/ul (4.8-10.8)
[2025-03-11 07:54] LABS: Calcium 8.3 mg/dl (8.6-10.3); Potassium 3.5 mmol/L (3.5-5.1)
[2025-03-11 08:00] LABS: BUN Creatinine Ratio 10.7 (10-20); Creatinine Clr Calc Pharmacy 108.8 ml/min
[2025-03-11] MEDS: PROMETHAZINE 12.5 MG/50.5 ML BAG IV PRN (08:04)
[2025-03-11] MEDS ORDERED: NON-FORMULARY MEDICATION (Multivitamin With Minerals Tablet) PO SCH (09:00)
--- NOTE | 2025-03-11 11:23 | Gastrointestinal Consultation ---
<Statement entered by Lyndon Kaufman MD - 03/11/25 16:41> I have reviewed the history, physical exam, lab and imaging findings as dictated by the mid-level provider, made any necessary modifications, and agree with the stated assessment and recommendations. A total of 55 minutes was spent in the chart/data review, direct observation, decision making and discussion of this case with the mid level provider, patient/family and other providers. Date of Consultation March 11, 2025 Assessment & Plan (1) Hematemesis: No strong suggestion of portal hypertension based bleed. Continue with to monitor H/H. Continue with IV PPI therapy; po at discharge. Monitor for further GI bleeding. Could consider an outpatient EGD vs inpatient if he were to start having bleeding again. History of Present Illness Reason for Consultation: UGIB Attending Physician: Addy Gifford MD History of Present Illness Patient is a 40 yo male with history of alcohol abuse. He notes he recently has been sober for 6 months after rehab and had a relapse. He notes that after drinking alcohol, he began to experience a small amount of hematemesis. He notes it was minor, but he presented to the ED in the event it may worsen. He denies any further GI bleeding at this time. He had an EGD in 2022 that suggested esophagitis. PMH includes HCV post treatment, GERD, hepatic steatosis, anal fissure, prediabetes, borderline personality/mood disorder, latent TB, alcohol abuse, and past tobacco abuse. He notes he takes Pantoprazole 20 mg daily at home. Since presentation to the ED, he had a CT scan as follows: IMPRESSION: 1. Lower esophageal wall thickening suggesting esophagitis. This appears worsened from prior. 2. Mild wall thickening at the anorectal junction appears similar to prior exam. Patient's ethyl alcohol level upon admission was 68.7. T bili 1.3. AST 27, ALT 25. H/H 14.4/41.2. Allergies Allergy/AdvReac Type Severity Reaction Status Date / Time No Known Allergies Allergy Verified 03/10/25 22:03 Home Medications Medication Instructions Recorded Confirmed Type cholecalciferol (vitamin D3) 25 25 mcg PO DAILY 05/14/24 03/10/25 History mcg (1,000 unit) tablet escitalopram oxalate 10 mg tablet 15 mg PO DAILY 05/14/24 03/10/25 History famotidine 20 mg tablet 20 mg PO BID 05/14/24 03/10/25 History folic acid 1 mg tablet 1 mg PO DAILY 05/14/24 03/10/25 History pantoprazole 20 mg tablet,delayed 20 mg PO DAILY 05/14/24 03/10/25 History release thiamine HCl (vitamin B1) 100 mg 100 mg PO DAILY 05/14/24 03/10/25 History tablet acetaminophen 325 mg tablet 975 mg PO TID PRN Pain 03/10/25 03/10/25 History multivitamin with minerals 1 tab PO DAILY 03/10/25 03/10/25 History naloxone 8 mg/actuation nasal spray 8 mg intranasal DIRECTED PRN 03/10/25 03/10/25 History Opioid Overdose Patient History Medical History Hypoxia Intractable vomiting Alcoholic ketoacidosis History of illicit drug use 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 History of anesthesia reaction woke up during colonoscopy History of anal fissures Surgical History History of wisdom tooth extraction History of colonoscopy Family History Other No family history of adverse response to anesthesia Social History Smoking Status: Former smoker Tobacco Type: Cigarettes Cigarettes Per Day: smokes marijuana; Second Hand Exposure: No; Do You Dip or Chew Tobacco: No; Hx Alcohol Use: Yes Alcohol type: hard liquor Alcohol Intake Frequency Comment: vodka, approx 1 pint daily Hx Substance Use: No Preferred Language: Yoruba Communication Ability: Effective Manager Paper Required: No Beliefs That Will Affect Care: None Current Living Situation: Parent Current Living Situation Comment: living in a hotel Other Information That Helps Us Care for You: No Feels Safe at Home: Yes Safety Concerns: Feels Safe At This Time Assistive Devices: None Review of Systems Constitutional: no fever and no chills Respiratory: no cough and no dyspnea Cardiovascular: no chest pain Gastrointestinal: + abdominal pain and + hematemesis; no b lood in stools Physical Exam Constitutional: well developed Respiratory: normal respiratory effort Gastrointestinal (Abdomen): normal bowel sounds, soft, nontender, no hepatos plenomegaly Psychiatric: Orientation: alert and oriented x 3 Results & Data Vital Signs (Past 12 Hours) Vital Signs Temp Pulse Pulse Resp BP Pulse Ox O2 Del Method 03/11/25 11:09 36.9 C 85 16 119/77 95 Room Air 03/11/25 07:38 36.7 C 76 16 108/70 94 Room Air 03/11/25 02:57 37.1 C 105 H 18 111/72 92 Room Air 03/11/25 01:00 68 03/11/25 01:00 36.8 C 82 18 137/86 93 Room Air PG Care Time/CCT Total # of Minutes Spent Total Time Spent with Patient: Total time spent is greater than 50% in coordination of care (as documented) at patient's floor/unit and/or counseling patient: Coding Level of Care Code 32362 IN/OBS CONSULT LVL 4,60M Diagnoses Hematemesis K92.0 Nausea presence: unspecified (1) Hematemesis Nausea presence: unspecified Qualified Code(s): K92.0 - Hematemesis
--- NOTE | 2025-03-11 12:04 | Hospitalist Progress Note ---
Date of Service March 11, 2025 Assessment & Plan (1) UGIB (upper gastrointestinal bleed): Plan: Likely secondary to esophagitis/gastritis with history of alcoholic gastritis in the past History GERD Has been on IV PPI No more evidence of hematemesis and/or melena in the hospital He has been feeling much better without any significant symptoms Hemoglobin is maintained Appreciate GI input and recommendation Other significant medical conditions remained stable as below: HCV status post treatment Hepatic steatosis Prediabetes, hemoglobin A1c of 5.6 from last year Borderline personality disorder/mood disorder, latent TB Past tobacco abuse DVT prophylaxis. SCDs Re: hx GI bleed Full code (2) Alcohol use disorder, moderate, dependence: Plan: Had been sober for about 6-month and then restarted drinking PARISA S at risk protocol, DT precautions (3) Hematemesis: (4) Hepatitis C: Admission and Anticipated Discharge Date Admission Date: March 10, 2025 Subjective 03/11/2025 The patient was seen and examined in medical telemetry unit He came in with coffee-ground emesis but did not have any more coffee-ground emesis or any black stool while in the hospital He has been having some nausea but no vomiting and does not have any abdominal discomfort Has been 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 Review of Systems Review of Systems: All systems reviewed and are unremarkable except as noted below Physical Exam Physical Exam: Lying in bed without any acute distress Constitutional: well developed, well nourished and + obese; not ill appearing Eyes: PERRL, conjunctivae normal, anicteric sclerae ENMT: external ear and nose normal, oropharynx normal Neck: trachea midline, no thyromegaly Respiratory: no respiratory distress Auscultation: lungs clear to auscultation bilaterally Cardiovascular: Rate/Rhythm: regular rate and regular rhythm; not tachycardic Heart Sounds: normal S1 and normal S2; no murmur Extremities: no edema Gastrointestinal (Abdomen): Inspection/Auscultation: normal bowel sounds; abdomen not distended Percussion/Palpation: abdomen soft; abdomen nontender Musculoskeletal: No acute arthritis involving any of the joint Neurologic: normal touch/pain/proprioception and moves all extremities; no focal motor deficits Psychiatric: A+Ox3, euthymic affect Lymphatic: no cervical or axillary lymphadenopathy Results & Data Results & Data Vital Signs (Past 12 Hours) Vital Signs Temp Pulse Pulse Resp BP Pulse Ox O2 Del Method 03/11/25 11:09 36.9 C 85 16 119/77 95 Room Air 03/11/25 07:38 36.7 C 76 16 108/70 94 Room Air 03/11/25 02:57 37.1 C 105 H 18 111/72 92 Room Air 03/11/25 01:00 68 03/11/25 01:00 36.8 C 82 18 137/86 93 Room Air Laboratory Results Short CBC 03/10/25 03/11/25 03/11/25 Range/Units 21:00 01:12 07:24 WBC 15.54 H 10.23 (4.8-10.8) K/ul Hgb 16.7 14.2 14.4 (14.0-18.0) g/dl Hct 47.0 40.1 L 41.2 L (42.0-52.0) % Plt Count 254 190 (130-400) K/uL BMP 03/10/25 03/11/25 21:00 07:24 Sodium 143 138 Potassium 3.6 3.5 Chloride 105 104 Carbon Dioxide 20 L 28 BUN 12 9 Creatinine 0.92 0.84 Glucose 125 H 106 H Calcium 8.9 8.3 L Liver Function 03/10/25 Range/Units 21:00 Total Bilirubin 1.3 H D (0.2-1.0) mg/dl AST 27 (13-39) U/L ALT 25 (7-52) U/L Alkaline Phosphatase 97 (34-104) U/L Albumin 4.9 (3.4-5.0) gm/dl Urine 03/10/25 Range/Units 21:00 Urine Color Yellow Urine Appearance Clear (Clear) Urine pH 5.5 (4.5-7.5) Ur Specific [place] 1.019 (1.000-1.030) Urine Protein 1+ H (Negative) Urine Glucose (UA) Negative (Negative) Medications Administered Current Inpatient Medications Acetaminophen (Acetaminophen 500 Mg Tab) 500 mg PO Q6H PRN PRN Reason: fever/pain Stop: 04/09/25 22:22 Escitalopram Oxalate (Escitalopram Oxalate 10 Mg Tab) 15 mg PO DAILY RYAN Stop: 04/10/25 08:59 Folic Acid (Folic Acid 1 Mg Tab) 1 mg PO QAM RYAN Stop: 04/10/25 08:59 Pantoprazole Sodium 40 mg/ (Dextrose) 100 mls @ 20 mls/hr IV Q5H RYAN Stop: 04/09/25 21:14 Last Admin: 03/11/25 05:16 Dose: 8 mg/hr, 20 mls/hr Promethazine HCl (Phenergan) 12.5 mg in 50.5 mls @ 202 mls/hr IV Q6H PRN PRN Reason: Nausea And Vomiting Stop: 04/09/25 22:22 Last Infusion: 03/11/25 08:20 Dose: Infused Sodium Chloride (1/2 Nss) 1,000 mls @ 60 mls/hr IV .[id number] ONE Stop: 03/11/25 15:39 Last Admin: 03/10/25 23:18 Dose: 60 mls/hr Lorazepam (Lorazepam 2 Mg/1 Ml Vial) 1 mg IV ONE PRN; Protocol PRN Reason: EtoH Withdrawal AWSS 6-10 Multivitamins (Multivitamin Tab) [facility] [place] 04/10/25 08:59 Oxycodone HCl (Oxycodone Hcl Ir 5 Mg Tab (Immediate Release)) 5 mg PO Q4H PRN PRN Reason: Pain Stop: 03/24/25 22:22 Thiamine HCl (Thiamine Hcl 100 Mg Tab) 100 mg PO QAM [facility] Stop: 04/10/25 08:59 (3) Hematemesis Nausea presence: unspecified Qualified Code(s): K92.0 - Hematemesis
[2025-03-11] MEDS: THIAMINE HCL 100 MG TAB PO SCH (12:24)
[2025-03-11] MEDS: ESCITALOPRAM OXALATE 10 MG TAB PO SCH (12:25)
[2025-03-11] MEDS: FOLIC ACID 1 MG TAB PO SCH (12:25)
[2025-03-11] MEDS: MULTIVITAMIN TAB PO SCH (12:25)
[2025-03-11] MEDS: LORazepam 0.5 MG TAB PO STA (16:48)
[2025-03-11 23:55] VITALS: RESP 16
[2025-03-12 07:07] LABS: Basophils # (auto) 0.03 K/uL (0.00-0.20); Basophils % (auto) 0.5 %; Eosinophils # (auto) 0.05 K/uL (0.00-0.50); Eosinophils % (auto) 0.8 %; Hematocrit (blood only) 43.2 % (42.0-52.0); Hemoglobin 15.5 g/dl (14.0-18.0); Immature Granulocytes # (auto) 0.03 K/uL (0.01-0.20); Immature Granulocytes % (auto) 0.5 %; Mean Corpuscular Hemoglobin 30.6 pg (25.0-34.0); Mean Corpuscular Hgb Conc 35.9 g/dL (32.0-36.0); Mean Corpuscular Volume 85.4 fL (80.0-100.0); Mean Platelet Volume 9.8 fL (9.4-12.4); Neutrophils # (auto) 3.19 K/uL (1.40-6.50); Neutrophils % (auto) 53.2 %; Platelet Count 206 K/uL (130-400); RDW Coefficient of Variation 13.3 % (11.5-14.5); RDW Standard Deviation 41.2 fL (36.4-46.3); Red Blood Count 5.06 M/uL (4.70-6.10)
[2025-03-12 07:38] LABS: BUN Creatinine Ratio 12.1 (10-20); Calcium 8.9 mg/dl (8.6-10.3); Creatinine Clr Calc Pharmacy 100.5 ml/min; Potassium 3.3 mmol/L (3.5-5.1)
[2025-03-12 07:49] VITALS: BP 124/83; PULSE 60; TEMP 97.5; O2SAT 95
[2025-03-12] MEDS: POTASSIUM CHLORIDE CRTAB 20 MEQ TABCR PO STA (08:36)
--- NOTE | 2025-03-12 10:16 | Hospitalist Progress Note ---
Date of Service March 12, 2025 Assessment & Plan (1) UGIB (upper gastrointestinal bleed): Plan: Likely secondary to esophagitis/gastritis with history of alcoholic gastritis in the past History GERD Has been on IV PPI No more evidence of hematemesis and/or melena in the hospital He has been feeling much better without any significant symptoms Hemoglobin is maintained Appreciate GI input and recommendation Remains medically stable and no more evidence of GI bleed and lower abdominal symptoms Hemoglobin remains stable Does not have any signs and/or symptoms of withdrawal He will be discharged this morning and was strongly advised to quit drinking He will see his PCP tomorrow Other significant medical conditions remained stable as below: HCV status post treatment Hepatic steatosis Prediabetes, hemoglobin A1c of 5.6 from last year Borderline personality disorder/mood disorder, latent TB Past tobacco abuse DVT prophylaxis. SCDs Re: hx GI bleed Full code (2) Alcohol use disorder, moderate, dependence: Plan: Had been sober for about 6-month and then restarted drinking PARISA S at risk protocol, DT precautions (3) Hematemesis: (4) Hepatitis C: Admission and Anticipated Discharge Date Admission Date: March 10, 2025 Subjective 03/11/2025 The patient was seen and examined in medical telemetry unit He came in with coffee-ground emesis but did not have any more coffee-ground emesis or any black stool while in the hospital He has been having some nausea but no vomiting and does not have any abdominal discomfort Has been waiting to be evaluated by 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 03/12/2025 The patient was seen and examined in medical telemetry unit He has been stable and denies any significant symptoms No more nausea, vomiting and no black stool and does not have any abdominal pain He will be discharged today Review of Systems Review of Systems: All systems reviewed and are unremarkable except as noted below Physical Exam Physical Exam: Lying in bed without any acute distress Constitutional: well developed, well nourished and + obese; not ill appearing Eyes: PERRL, conjunctivae normal, anicteric sclerae ENMT: external ear and nose normal, oropharynx normal Neck: trachea midline, no thyromegaly Respiratory: no respiratory distress Auscultation: lungs clear to auscu ltation bilaterally Cardiovascular: Rate/Rhythm: regular rate and regular rhythm; not tachycardic Heart Sounds: normal S1 and normal S2; no murmur Extremities: no edema Gastrointestinal (Abdomen): Inspection/Auscultation: normal bowel sounds; abdomen not distended Percussion/Palpation: abdomen soft; abdomen nontender Neurologic: normal touch/pain/proprioception and moves all extremities; no focal motor deficits Psychiatric: A+Ox3, euthymic affect Lymphatic: no cervical or axillary lymphadenopathy Results & Data Results & Data Vital Signs (Past 12 Hours) Vital Signs Temp Pulse Resp BP Pulse Ox O2 Del Method 03/12/25 07:48 36.4 C L 60 16 124/83 95 Room Air 03/12/25 03:20 36.9 C 63 16 120/77 93 Room Air 03/11/25 22:50 37.3 C 68 16 118/76 95 Room Air Laboratory Results Short CBC 03/12/25 Range/Units 06:32 WBC 6.00 (4.8-10.8) K/ul Hgb 15.5 (14.0-18.0) g/dl Hct 43.2 (42.0-52.0) % Plt Count 206 (130-400) K/uL BMP 03/12/25 06:32 Sodium 139 Potassium 3.3 L Chloride 101 Carbon Dioxide 31 BUN 11 Creatinine 0.91 Glucose 113 H Calcium 8.9 Medications Administered Current Inpatient Medications Acetaminophen (Acetaminophen 500 Mg Tab) 500 mg PO Q6H PRN PRN Reason: fever/pain Stop: 04/09/25 22:22 Escitalopram Oxalate (Escitalopram Oxalate 10 Mg Tab) 15 mg PO DAILY [facility] Stop: 04/10/25 08:59 Last Admin: 03/12/25 08:37 Dose: 15 mg Folic Acid (Folic Acid 1 Mg Tab) 1 mg PO QAM [facility] Stop: 04/10/25 08:59 Last Admin: 03/12/25 08:38 Dose: 1 mg Promethazine HCl (Phenergan) 12.5 mg in 50.5 mls @ 202 mls/hr IV Q6H PRN PRN Reason: Nausea And Vomiting Stop: 04/09/25 22:22 Last Infusion: 03/11/25 08:20 Dose: Infused Lorazepam (Lorazepam 2 Mg/1 Ml Vial) 1 mg IV ONE PRN; Protocol PRN Reason: EtoH Withdrawal AWSS 6-10 Multivitamins (Multivitamin Tab) 1 tab PO QAM [facility] Stop: 04/10/25 08:59 Last Admin: 03/12/25 08:39 Dose: 1 tab Oxycodone HCl (Oxycodone Hcl Ir 5 Mg Tab (Immediate Release)) 5 mg PO Q4H PRN PRN Reason: Pain Stop: 03/24/25 22:22 Thiamine HCl (Thiamine Hcl 100 Mg Tab) 100 mg PO QAM [facility]AN Stop: 04/10/25 08:59 Last Admin: 03/12/25 08:39 Dose: 100 mg (3) Hematemesis Nausea presence: unspecified Qualified Code(s): K92.0 - Hematemesis
--- NOTE | 2025-03-13 11:28 | Discharge Summary ---
Date of Service March 13, 2025 Admission HPI Per Admitting Provider History obtained from patient and records. Medical history significant for HCV status post treatment, GERD, hepatic steatosis, history anal fissure, prediabetes, borderline personality disorder/mood disorder, latent TB, alcohol abuse, substance abuse, past tobacco abuse. Last confinement June 2024 for respiratory failure secondary to pneumonia in the setting of alcohol abuse. Patient discharged to alcohol rehab where he stayed for 6 months. Patient started drinking again last night due to personal stressors. Denies suicidality. This morning, patient had coffee-ground emesis with mild achy abdominal discomf ort without chest pain or SOB. No OTC NSAID intake. Patient unaware of stool characteristics. IV Protonix administered at the ER. Medical History as above 2022 EGD showed grade C reflux esophagitis, small hiatal hernia, gastritis 2018 colonoscopy showed hemorrhoids Surgical History : Appendectomy Family History : Unknown as patient owing to patient's adoption Personal/Social history : Non-smoker, alcohol use, currently unemployed Admission Exam Per Admitting Provider Physical Exam: GENERAL: Apathetic, looks older than stated age, lying on the right lateral decubitus position, obese, no respiratory distress SKIN: Normal color, warm HEENT: The spectacle, [place] palpebral conjunctivae, no ptosis, dry buccal mucosa NECK : Supple, no tenderness CHEST : CTA, no tenderness HEART : RRR, no obvious murmurs ABDOMEN: Some distention, no tenderness EXTREMITIES : no LE swelling/tenderness, no other conspicuous deformities noted NEUROLOGIC : Coherent, no facial asymmetry, no other gross focality Principal Diagnosis Upper GI bleed, likely secondary to gastritis/esophagitis, history of alcohol abuse Discharge Exam Lying in bed without any acute distress Constitutional well developed, well nourished and + obese; not ill appearing Eyes PERRL, conjunctivae normal, anicteric sclerae ENMT external ear and nose normal, oropharynx normal Neck trachea midline, no thyromegaly Respiratory no respiratory distress Auscultation: lungs clear to auscultation bilaterally Cardiovascular Rate/Rhythm: regular rate and regular rhythm; not tachycardic Heart Sounds: normal S1 and normal S2; no murmur Extremities: no edema Gastrointestinal (Abdomen) Inspection/Auscultation: normal bowel sounds; abdomen not distended Percussion/Palpation: abdomen soft; abdomen nontender Neurologic normal touch/pain/proprioception and moves all extremities; no focal motor deficits Psychiatric A+Ox3, euthymic affect Lymphatic no cervical or axillary lymphadenopathy Discharge Data Allergies Allergy/AdvReac Type Severity Reaction Status Date / Time No Known Allergies Allergy Verified 03/10/25 22:03 Consultations 03/10/25 22:06 ED Decision to Admit Stat 03/11/25 01:11 Consult Gastroenterology Routine Ordered Studies 03/10/25 20:51 CT abd pelvis IV con only Stat Hospital Course (1) UGIB (upper gastrointestinal bleed): Likely secondary to esophagitis/gastritis with history of alcoholic gastritis in the past History GERD Has been on IV PPI No more evidence of hematemesis and/or melena in the hospital He has been feeling much better without any significant symptoms Hemoglobin is maintained Appreciate GI input and recommendation Remains medically stable and no more evidence of GI bleed and lower abdominal symptoms Hemoglobin remains stable Does not have any signs and/or symptoms of withdrawal He will be discharged this morning and was strongly advised to quit drinking He will see his PCP tomorrow Other significant medical conditions remained stable as below: HCV status post treatment Hepatic steatosis Prediabetes, hemoglobin A1c of 5.6 from last year Borderline personality disorder/mood disorder, latent TB Past tobacco abuse DVT prophylaxis. SCDs Re: hx GI bleed Full code (2) Alcohol use disorder, moderate, dependence: Had been sober for about 6-month and then restarted drinking PARISA S at risk protocol, DT precautions (3) Hematemesis: (4) Hepatitis C: Total Time Total Time Spent Total Time Spent (In Minutes): 35 Minutes Discharge Plan Discharge Items Patient Disposition: Home - Self-Care Reason For Visit: UGIB Discharge Diagnosis: upper GI bleed, likely secondary to gastritis/esophagitis, history of alcohol abuse Condition on Discharge: Good Activity: Resume your previous activity Non-emergency contact: Primary Care Provider Call non-emergency contact if: you have any medication questions and your symptoms worsen Follow-up/Referrals: [facility]Hospital [facility] Diet: Regular Addtl Attending Provider Instructions: Please take precautions to avoid falls Strongly advised to quit drinking No change in your medications Please keep appointment with your healthcare provider Pending Studies at Discharge: No Stand-Alone Forms: My [employer], Smoking Cessation Medications and DC Order Prescriptions: Continued thiamine HCl (vitamin B1) 100 mg tablet 100 mg PO DAILY famotidine 20 mg tablet 20 mg PO BID folic acid 1 mg tablet 1 mg PO DAILY escitalopram oxalate 10 mg tablet 15 mg PO DAILY cholecalciferol (vitamin D3) 25 mcg (1,000 unit) tablet 25 mcg PO DAILY pantoprazole 20 mg tablet,delayed release (DR/EC) 20 mg PO DAILY acetaminophen 325 mg Tablet 975 mg PO TID MDD 3000mg/24hr PRN (Reason: Pain) Rx Instructions: Do not take with alcohol multivitamin with minerals Tablet 1 tab PO DAILY naloxone 8 mg/actuation [place],Non-Aerosol 8 mg INTRANASAL DIRECTED PRN (Reason: Opioid Overdose) Discharge Orders: Discharge Order (Routine); Ordered 03/12/25 Ordered By: Addy Gifford Admission Data Admit Date/Time: 03/10/25 22:21 Attending Provider: Addy Gifford Admit Provider: Hua Nieto Primary Care Provider: [facility] Other Providers: Hua Nieto; Tylor Santamaria; Yandel Walton; Zoila Esteban; Janeen Serra; Linda Goldberg; Jory Hernandez; Ankush Walker; Keo Bangura; Jodie Alfredo; Dane Breen; Niya Yusuf; Ayaka Camara; Gabriela Barksdale; Shauna Mitchell; Rocael Coleman; Francisco Garza; Alexei Hunt; Jami Nice; Vu Joseph Jr; Lavelle Weiner; Calvin Galo; Vinay Foss; Edmundo Garcia; Racheal Miranda; Branden Ellsworth I; Natali Herr; Yusef Lim; Lyndon Kaufman Other Interventions: Discharge Summary Assessment (RN) Last Done: 03/12/25 10:19
== END 2025-03-12 10:31 | disposition home or self-care (01) | DRG 368 ==
LOC: ED 20:30 → 2N 22:21

== ENCOUNTER 2025-06-17 14:34 | Inpatient (IN) ==
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
[2025-06-17 15:40] LABS: Appearance Urine Clear (Clear); Bacteria Urine Automated None Seen (None Seen); Cast Urine Automated 0-2 /lpf (0-2); Epithelial Cell Urine Auto 0-2 /hpf (0-2); Glucose Urine UA Negative (Negative); RBC Urine Automated 0-2 /hpf (0-2); WBC Urine Automated 0-5 /hpf (0-5)
[2025-06-17] MEDS: SODIUM CHLORIDE 0.9% 1,000 ML IV STA (15:48)
[2025-06-17 16:05] LABS: Hematocrit (blood only) 53.4 % (42.0-52.0); Hemoglobin 18.5 g/dl (14.0-18.0); Immature Granulocytes # (auto) 0.08 K/uL (0.01-0.20); Immature Granulocytes % (auto) 0.5 %; Mean Corpuscular Hemoglobin 30.1 pg (25.0-34.0); Mean Corpuscular Volume 86.8 fL (80.0-100.0); Platelet Count 318 K/uL (130-400); RDW Standard Deviation 42.6 fL (36.4-46.3); Red Blood Count 6.15 M/uL (4.70-6.10); White Blood Count 15.00 K/ul (4.8-10.8)
[2025-06-17 16:21] LABS: Alanine Aminotransferase 50.0 U/L (7-52); Albumin Globulin Ratio 1.1 (0.9-2); Alkaline Phosphatase 123.0 U/L (34-104); Anion Gap 17.0 (3-11); Bilirubin,Total 2.1 mg/dl (0.2-1.0); Blood Urea Nitrogen 17.0 mg/dl (6-23); Calcium 10.2 mg/dl (8.6-10.3); Carbon Dioxide 22.0 mmol/L (21-32); Chloride 98.0 mmol/L (98-107); Creatinine Clr Calc Pharmacy 78.8 ml/min; Globulin 4.4 gm/dl (2.5-4.0); Glucose 152.0 mg/dl (70-99(Fasting)); Lipase 42.0 U/L (11-82); Potassium 3.3 mmol/L (3.5-5.1); Sodium 137.0 mmol/L (136-145); Total Protein 9.3 gm/dl (6.0-8.3)
[2025-06-17] MEDS: ONDANSETRON INJ 2 MG/ML 2 ML VIAL IV STA (16:26)
[2025-06-17 16:38] LABS: INR 1.0 (0.9-1.1); Prothrombin Time 11.3 Seconds (9.0-12.0)
[2025-06-17] MEDS: ALUMINUM/MAGNESIUM SUSP 30 ML UDC PO STA (16:58)
[2025-06-17] MEDS: OPTIRAY 320 100ml IV ONE (17:08)
--- NOTE | 2025-06-17 17:49 | CT Scan Report ---
Clinical History: Alcohol withdrawal. Vomiting and sweating Technique: Axial computed tomography images were obtained of the abdomen and pelvis after the administration of intravenous contrast. Comparison is made to the prior CT dated 03/10/2025. Findings: There is fatty infiltration of the liver. The liver is enlarged measuring 19.9 cm. No liver mass lesion is seen. The portal vein is patent. The gallbladder appears unremarkable. No bile duct dilatation is noted. The spleen is of normal size. No focal splenic lesion is evident. The pancreas appears normal with no sign of acute or chronic pancreatitis and no mass lesion noted. The pancreatic duct is of normal caliber. The adrenal glands appear unremarkable. There is no hydronephrosis or perinephric stranding. No renal mass lesion is identified. The aorta is of normal caliber. No abdominal adenopathy is seen. There is a small hiatal hernia. There is no sign of small bowel obstruction. The colon appears unremarkable. There is no sign of appendicitis. No free intraperitoneal fluid or air is identified. No distal ureteral or bladder calculi are seen. The bladder is decompressed. The iliac arteries are of normal caliber. No pelvic adenopathy is noted. The lungs bases appear clear. There is severe spinal stenosis at L1-2 due to a disc bulge. No fracture is identified. No focal osseous lesion is seen Impression: 1. Hepatomegaly and fatty infiltration of the liver 2. Small hiatal hernia 3. Severe spinal stenosis at L1-2 ACT 112: Positive. There are findings on this exam that require communication between the performing entity and the patient following Patient Test Result Information Act ([place] ACT 112) guidelines. Electronically signed by Trevor Dawn 06-17-2025 5:49 PM
[2025-06-17] MEDS: FOLIC ACID 1 MG in SYRINGE 9.8 ML IV STA (18:32)
[2025-06-17] MEDS: THIAMINE HCL 100 MG in SYRINGE 9 ML IV STA (18:33)
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
[2025-06-17 18:42] LABS: Magnesium 1.6 mg/dl (1.7-2.4)
[2025-06-17] MEDS: PANTOPRAZOLE BOLUS/DRIP IV STA (19:00)
[2025-06-17 19:12] LABS: Amphetamines+Metham, Urine Neg (Neg); MDMA (Ecstacy), Urine Neg (Neg); Marijuana, Urine Pos (Neg)
[2025-06-17] MEDS: PROMETHAZINE 12.5 MG/50.5 ML BAG IV STA (19:19)
[2025-06-17] MEDS: PANTOprazole 40 MG in DEXTROSE 5% MINI-B 100 ML IV SCH (19:26)
[2025-06-17] MEDS: POTASSIUM CHLORIDE / WTR 10 MEQ/100 ML PLCT IV SCH (19:32)
[2025-06-17] MEDS: MAGNESIUM SULFATE / D5W 1 GM/100 ML BAG IV SCH (19:33)
--- NOTE | 2025-06-17 19:33 | Communication Note ---
Date of Service: June 17, 2025 Attending Addendum: Case reviewed with the advanced practitioner. I have personally performed a history and physical examination on the patient. I have reviewed the advanced practitioner's documentation on the date of service referenced in note, and I agree with, and take responsibility for the plan of care. please refer to her notes for full details patient seen and examined, records reviewed by myself as well on exam, patient seen resting in bed, in prone position, not in distress reporting persistent nausea and bloating denies chest pain, shortness of breath, headache, dizziness no fever/chills reports drinking 2 pints of alcohol daily and also admits to using cannabis product (+) diarrhea today, no melena/hematochezia no other symptoms VS noted and reviewed oriented x3, not in distress, speaks in sentences with no effort nor accessory muscle use normal rate, regular rhythm, no murmurs clear breath sounds bilaterally non distended, soft, nontender no bipedal edema, erythema, warmth no neuro deficits all labs, imaging noted and reviewed ASSESSMENT AND PLAN> ALCOHOL WITHDRAWAL drinks 2 pints of alcohol per day Librium protocol with PRN Ativan monitor in PCU NAUSEA, VOMITING, ABDOMINAL PAIN, DIARRHEA in the setting of alcohol withdrawal, cannabis use history of GERD possible underlying gastritis, peptic ulcer disease denies melena/hematochezia AST 57 Tot Bili 2.[address] abd/pelvis: (+) hepatomegaly, fatty liver, small hiatal hernia Protonix IV BID scheduled Zofran, PRN phenergan stool PCR panel IV fluids, NPO except medications HIGH ANION GAP likely from alcohol HCO3 normal, VBG 7.35 check lactic acid HYPOKALEMIA, MAGNESEMIA, PHOSPHATEMIA replaced with IV K, Mg and PO Ph LEUKOCYTOSIS afebrile UA: no signs of UTI, CXR: no pneumonia check blood cultures other chronic medical problems: HCV status post treatment Hepatic steatosis Prediabetes, hemoglobin A1c of 5.6 from last year Borderline personality disorder/mood disorder, latent TB Past tobacco abuse other diagnoses and plan of care as per advanced practitioner's notes I spent a total of 50 minutes coordinating, documenting, and providing care for this patient, excluding time spent in the performance of separately billed services or time spent by another provider/QHP. Sukumar Garcia MD
[2025-06-17] MEDS ORDERED: chlordiazePOXIDE ALCOHOL WITHDRAWL 25MG PO STA (19:37)
[2025-06-17] MEDS ORDERED: Ativan IV Alcohol Withdrawal--Active Protocol IV PRN (19:37)
[2025-06-17] MEDS ORDERED: ACETAMINOPHEN 325 MG TAB PO PRN (19:37)
[2025-06-17] MEDS ORDERED: ONDANSETRON INJ 2 MG/ML 2 ML VIAL IV PRN (19:37)
[2025-06-17] MEDS ORDERED: MAGNESIUM HYDROXIDE SUSP 30 ML UDC PO PRN (19:37)
[2025-06-17] MEDS ORDERED: POLYETHYLENE (MIRALAX) 17 GM PACK PO PRN (19:37)
[2025-06-17 19:40] LABS: Base Excess VBG 0.3 mEq/L; HCO3 VBG 22 mmol/L; Oxygen Saturation VBG 87.2 %; PCO2 VBG 27 mmHg (38-50); PO2 VBG 51 mmHg; pH VBG 7.51 (7.36-7.41)
--- NOTE | 2025-06-17 19:42 | XRay Report ---
Technique: A frontal view of the chest was obtained Comparison is made to the prior examination dated 05/17/2025 Findings: There are no confluent pulmonary infiltrates. The heart size is within normal limits. No pleural effusion or pneumothorax is seen. There is no definite pulmonary nodule. No fracture is noted. No foreign body is seen Impression: No active disease Electronically signed by Trevor Dawn 06-17-2025 7:42 PM
[2025-06-17] MEDS: ALUMINUM/MAGNESIUM SUSP 30 ML UDC PO PRN (21:23)
[2025-06-17] MEDS: SODIUM CHLORIDE 0.9% 1,000 ML IV SCH (21:24)
[2025-06-17] MEDS: ONDANSETRON INJ 2 MG/ML 2 ML VIAL IV SCH (21:44)
--- NOTE | 2025-06-17 22:09 | Electrocardiogram Report ---
Test Reason : Blood Pressure : */* mmHG Vent. Rate : 52 BPM Atrial Rate : 52 BPM P-R Int : 144 ms QRS Dur : 82 ms QT Int : 506 ms P-R-T Axes : 57 -11 21 degrees QTcB Int : 470 ms Sinus bradycardia with sinus arrhythmia Otherwise normal ECG When compared with ECG of 17-May-2025 07:50, Vent. rate has decreased by 26 bpm T wave amplitude has decreased in Lateral leads Confirmed by Francisco Colorado ([id number]) on 06/17/2025 10:09:02 PM Referred By: REFERRED SELF Confirmed By: Francisco Colorado
[2025-06-17] MEDS: POT PHOSPHATE MONOBASIC W/ SOD TAB PO SCH (22:53)
[2025-06-17] MEDS: PANTOprazole 40 MG/10 ML SYR IV SCH (22:53)
[2025-06-17 23:39] LABS: Anion Gap 12.0 (3-11); Blood Urea Nitrogen 11.0 mg/dl (6-23); Calcium 9.3 mg/dl (8.6-10.3); Carbon Dioxide 22.0 mmol/L (21-32); Chloride 100.0 mmol/L (98-107); Creatinine Clr Calc Pharmacy 112.7 ml/min; Glucose 153.0 mg/dl (70-99(Fasting)); Potassium 3.7 mmol/L (3.5-5.1); Sodium 134.0 mmol/L (136-145)
[2025-06-18 07:20] LABS: Hematocrit (blood only) 47.6 % (42.0-52.0); Hemoglobin 16.7 g/dl (14.0-18.0); Mean Corpuscular Hemoglobin 30.5 pg (25.0-34.0); Mean Corpuscular Volume 87.0 fL (80.0-100.0); Platelet Count 281 K/uL (130-400); RDW Standard Deviation 43.4 fL (36.4-46.3); Red Blood Count 5.47 M/uL (4.70-6.10); White Blood Count 11.02 K/ul (4.8-10.8)
[2025-06-18 08:45] LABS: Anion Gap 11.0 (3-11); Blood Urea Nitrogen 10.0 mg/dl (6-23); Calcium 8.9 mg/dl (8.6-10.3); Carbon Dioxide 24.0 mmol/L (21-32); Chloride 102.0 mmol/L (98-107); Creatinine Clr Calc Pharmacy 114.1 ml/min; Glucose 110.0 mg/dl (70-99(Fasting)); Potassium 3.6 mmol/L (3.5-5.1); Sodium 137.0 mmol/L (136-145)
[2025-06-18] MEDS: MULTIVITAMIN TAB PO SCH (08:59)
[2025-06-18] MEDS: THIAMINE HCL 100 MG TAB PO SCH (08:59)
[2025-06-18] MEDS: FOLIC ACID 1 MG TAB PO SCH (08:59)
[2025-06-18] MEDS ORDERED: LORazepam 1 MG TAB PO PRN ×2 (09:09)
[2025-06-18] MEDS ORDERED: Ativan PO Alcohol Withdrawal--Active Protocol PO PRN (09:09)
[2025-06-18 09:45] LABS: Magnesium 2.3 mg/dl (1.7-2.4)
[2025-06-18] MEDS: LORazepam 1 MG TAB PO PRN ×2 (10:03→10:58)
[2025-06-18 10:55] VITALS: TEMP 98.2
[2025-06-18 11:15] VITALS: O2SAT 91
[2025-06-18 15:32] VITALS: BP 118/74; PULSE 91; RESP 14
--- NOTE | 2025-06-18 15:39 | Discharge Summary ---
Discharge Summary Date of Service June 18, 2025 Principal Dx & Hospital Course #1 = Principal Diagnosis (1) Alcohol withdrawal: (2) Alcohol consumption binge drinking: (3) Stress due to illness of family member: (4) Alcoholic gastritis without bleeding: (5) Alcohol use disorder, moderate, dependence: (6) Alcoholic ketoacidosis: Plan Patient 40-year-old gentleman with known history of alcohol misuse and dependence presents to the emergency room with withdrawal symptoms nausea and sweating and increased anxiety. Patient was admitted to the hospital to manage his alcohol withdrawal. Patient was treated with Librium. By the following morning the patient's symptoms had significantly improved. His diet was advanced. He gave additional history that he was under a lot of stress with his mom being in the hospital diagnosed with some brain disorder. He was not responding well to the stressful situation. He states that he been abstinent for approximately 1 month before and regressed with the stress of his mom and o nly been drinking for the past couple days while she was in the hospital. Patient reports that he follows regularly with his counselor at the [facility] on a daily basis. He is on the Vivitrol injection. Due to the fact that he had been absent and his only binge drinking low suspicion for severe withdrawal symptoms. We advance his diet and continue to monitor him through the day. This afternoon the patient is doing well. Only needs some additional Ativan early's morning is done well since. Will give him a dose of Librium here this evening anticipate discharging him home. He states he will be able to meet with his counselor tomorrow at 11 AM per his usual visit and was encouraged to remain abstinent. He will be continued on Protonix for what is presumed to be some alcoholic gastritis and given some Zofran for some intermittent nausea. Notes For Next Care Provider Continue to encourage outpatient support services for alcohol dependence Medication Changes From Visit Protonix for gastritis Zofran for nausea A couple doses of Librium to use over the next 24 hours Admission HPI Per Admitting Provider Patient is a 40 year old M with a no significant past medical history presenting with abdominal pain and vomiting. Symptoms began 2 days ago with feeling generally unwell. Since this morning, he has been breathing harder and complains of nausea, vomiting, abdominal pain, diarrhea. History of alcohol use/abuse and states he typically drinks 1 pint/day of alcohol, uses medical marijuana 2x/day, and denies other illicit drug use. Reportedly, the patient's last ETOH use was 2 days ago when he states he had 2 pints of ETOH because he was upset about his mother needing to be life flight to [facility]. Denies fever, chills, weight loss, headache, cognitive changes, vision/hearing changes, chest pain, SOB, swelling, urinary concerns, joint swelling/pain, ambulation difficulty, skin rashes, lesions, bleeding, bruising. In the emergency department, patient was hypertensive upon arrival to the ED with 163/111. He was jittery, complaining of abdominal pain, nauseous and having diarrhea. Ativan and Zofran given with some relief. Elevated WBC 15, H&H elevated, Lactate 4. No evidence of infection. Possible metabolic acidosis clinical presentation, VBG reassuring with pH 7.5, pCO2 27, pO2 51, HCO3 22, O2 87.2%, Base excess 0.3. UDS + marijuana, ETOH neg EKG showing sinus jarrod with sinus arrhythmia, vent rate 52 bpm, QTc 470. Mag 1.6 and replaced with 2gm, Phos 2.3 and replaced with Neutra Phos. CT abdomen/pelvis showing fatty infiltration of the liver, hepatomegaly with liver measuring 19.9cm, No liver mass lesion is seen; no sign of acute or chronic pancreatitis; small hiatal hernia; no sign of small bowel obstruction; no sign of appendicitis. Lab workup showing elevated bili 2.1, AST 57, ALT 50, Alk Phos 123. Chest Xray without acute disease. History obtained primarily from the patient and via hospitalization record. External chart review obtained from [facility]. Admission Exam Per Admitting Provider See H&P Discharge Exam Constitutional: Alert, nontoxic, no acute distress HEENT: Mucous membranes moist. Lungs: Clear to auscultation, decreased, no wheezes rales or rhonchi CV: S1-S2, regular Abdomen: Soft, nontender, nondistended Extremities: No significant edema Neuro: No focal deficits Psych: Cooperative, normal mood Updated Medication List Medication Instructions Recorded Confirmed Type hydroxyzine HCl 50 mg tablet 50 mg PO HS PRN Sleep/Anxiety 05/17/25 06/17/25 History naltrexone microspheres 380 mg 380 mg IM Q28D 05/17/25 06/17/25 History intramuscular suspension,extended release (Vivitrol) chlordiazepoxide HCl 25 mg capsule 25 mg PO Q8H PRN anxiety/tremor #3 06/18/25 Rx caps ondansetron 4 mg disintegrating 4 mg PO TID PRN nausea and 06/18/25 Rx tablet vomiting #10 tabs pantoprazole 40 mg tablet,delayed 40 mg PO DAILY #30 tabs 06/18/25 Rx release Hospital Stay Data Consultations 06/17/25 18:12 ED Decision to Admit Stat Diagnostic Imagining Performed 06/17/25 16:54 CT abd pelvis IV con only Stat Reviewed imaging, laboratory and diagnostic studies. Pertinent findings as below. WBCs 11.0 Hemoglobin 16.7 Platelets of 281 Potassium 3.6 Anion gap 11 Creatinine 0.78 Lactate 1.6 improved Phosphorus 3.2 Magnesium 2.3 Urine drug screen positive for marijuana Pending Results Patient Have Any Pending Studies at Discharge: No Discharge Instructions Given to Patient (Per Discharging Provider) Strongly advise you abstain from all beer and alcohol intake Follow with [facility] counselor on a daily basis Total Time Total Time Spent Total Time Spent (In Minutes): 38
[2025-06-19 01:43] LABS: A calco-baum cmplx NotReported Not Detected (NotDetected); Bact fragilis Not Reported Not Detected (NotDetected); Blood Culture Id Panel PCR Panel Negative (NotDetected); C auris Not Reported Not Detected (NotDetected); Calbicans Not Reported Not Detected (NotDetected); Candida glabrata Not Reported Not Detected (NotDetected); Candida krusei Not Reported Not Detected (NotDetected); Cneoformans/gatti Not Reported Not Detected (NotDetected); Cparapsilosis Not Reported Not Detected (NotDetected); Ctropicalis Not Reported Not Detected (NotDetected); E cloacae compx Not Reported Not Detected (NotDetected); Efaecalis Not Reported Not Detected (NotDetected); Efaecium Not Reported Not Detected (NotDetected); Enterobacterales Not Reported Not Detected (NotDetected); Escherichia coli Not Reported Not Detected (NotDetected); H influenzae Not Reported Not Detected (NotDetected); K aerogenes Not Reported Not Detected (NotDetected); Koxytoca Not Reported Not Detected (NotDetected); Kpneumoniae grp Not Reported Not Detected (NotDetected); Lmonocyt Not Reported Not Detected (NotDetected); N meningitidis Not Reported Not Detected (NotDetected); P aeruginosa Not Reported Not Detected (NotDetected); Proteus spp Not Reported Not Detected (NotDetected); Salmonella spp Not Reported Not Detected (NotDetected); Staph lugdunensis Not Reported Not Detected (NotDetected); Staph spp. Not Reported Not Detected (NotDetected); Staphaureus Not Reported Not Detected (NotDetected); Staphepi Not Reported Not Detected (NotDetected); Stenmaltophilia Not Reported Not Detected (NotDetected); Strep agal(GrpB) Not Reported Not Detected (NotDetected); Strep pneum Not Reported Not Detected (NotDetected); Strep pyog (GrpA) Not Reported Not Detected (NotDetected); Strep spp Not Reported Not Detected (NotDetected)
--- NOTE | 2025-06-19 08:24 | Communication Note ---
Date of Service: June 19, 2025 Patients one of the blood cultures growing gm positive bacilli. called home and father picked up the phone and said patient is sleeping and seems fine. No f almas. called again in morning patient was still sleeping and doing fine as per father. Told father about one of the culture been positive and bring patient to hospital if patient gets fevers or gets confused. Will check again.
[2025-06-20 09:07] LABS: Marijuana Quant, GCMS Urine >5000 ng/mL (<5)
== END 2025-06-18 16:34 | disposition home or self-care (01) | DRG 897 ==
LOC: ED 14:34 → SUATTDRO 19:04 → EDINP 19:04 → 2S 19:38

== ENCOUNTER 2025-08-31 11:32 | Inpatient (IN) ==
[2025-08-31] MEDS: ONDANSETRON INJ 2 MG/ML 2 ML VIAL IV STA ×2 (12:17→13:45)
[2025-08-31] MEDS: LORazepam 1 MG/1 ML SYR ED Inj Use IV STA ×2 (12:17→13:45)
[2025-08-31] MEDS: ONDANSETRON 4 MG OD TAB PO STA (12:19)
[2025-08-31] MEDS: LORazepam 1 MG TAB SL STA (12:19)
[2025-08-31] MEDS: METOCLOPRAMIDE HCL INJ 5 MG/ML 2 ML VIAL IM STA (12:55)
[2025-08-31] MEDS: diphenhydrAMINE 50 MG/ML VIAL IM STA (12:56)
[2025-08-31 13:07] LABS: Albumin Level 4.7 gm/dl (3.4-5.0); Anion Gap 16 (3-11); Bilirubin,Total 1.6 mg/dl (0.2-1.0); Calcium 9.7 mg/dl (8.6-10.3); Carbon Dioxide 23 mmol/L (21-32); Chloride 98 mmol/L (98-107); Sodium 137 mmol/L (136-145)
[2025-08-31 13:08] LABS: Hematocrit (blood only) 44.1 % (42.0-52.0); Hemoglobin 16.1 g/dl (14.0-18.0); Immature Granulocytes # (auto) 0.04 K/uL (0.01-0.20); Immature Granulocytes % (auto) 0.5 %; Mean Corpuscular Hemoglobin 31.1 pg (25.0-34.0); Mean Corpuscular Volume 85.1 fL (80.0-100.0); Platelet Count 190 K/uL (130-400); RDW Standard Deviation 44.8 fL (36.4-46.3); Red Blood Count 5.18 M/uL (4.70-6.10); White Blood Count 8.43 K/ul (4.8-10.8)
[2025-08-31 13:09] LABS: Alanine Aminotransferase 176 U/L (7-52); Alkaline Phosphatase 145 U/L (34-104); Blood Urea Nitrogen 19 mg/dl (6-23); Creatinine Clr Calc Pharmacy 83.3 ml/min; Glucose 182 mg/dl (70-99(Fasting)); Lipase 95 U/L (11-82); Total Protein 8.5 gm/dl (6.0-8.3)
[2025-08-31 13:21] LABS: Potassium 3.1 mmol/L (3.5-5.1)
[2025-08-31 13:38] LABS: INR 1.1 (0.9-1.1); Partial Thromboplastin Time 23 Seconds (21-31); Prothrombin Time 11.4 Seconds (9.0-12.0)
[2025-08-31] MEDS: SODIUM CHLORIDE 0.9% 1,000 ML IV ONE (13:40)
--- NOTE | 2025-08-31 14:20 | XRay Report ---
Technique: 5 views of the chest and abdomen were obtained Findings: There are no confluent pulmonary infiltrates. The heart size is within normal limits. No pleural effusion or pneumothorax is seen. There is no definite pulmonary nodule. The bowel gas pattern appears unremarkable. There are suspected right renal calculi. No osseous abnormality is seen. No foreign body is noted Impression: 1. No definite pulmonary pathology 2. Unremarkable bowel gas pattern 3. Suspected right renal calculi Electronically signed by Trevor Dawn 08-31-2025 2:20 PM
[2025-08-31] MEDS: METOCLOPRAMIDE HCL INJ 5 MG/ML 2 ML VIAL IV ONE (14:32)
[2025-08-31] MEDS: diphenhydrAMINE 50 MG/ML VIAL IV STA (14:32)
[2025-08-31] MEDS: CAPSAICIN CR 0.075% 60 GM TUBE EXT STA (14:32)
[2025-08-31] MEDS ORDERED: ONDANSETRON INJ 2 MG/ML 2 ML VIAL IV PRN ×2 (14:37→17:25)
[2025-08-31] MEDS: GABAPENTIN 1200MG ALCOHOL WITHDRAWAL LOAD PO STA (14:45)
[2025-08-31] MEDS: GABAPENTIN 600 MG TAB PO ONE (14:46)
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
[2025-08-31] MEDS: THIAMINE HCL 500 MG in SODIUM CHLORIDE 0.9% 50 ML IV ONE (15:46)
[2025-08-31] MEDS ORDERED: ACETAMINOPHEN 325 MG TAB PO PRN (17:25)
[2025-08-31] MEDS ORDERED: POLYETHYLENE (MIRALAX) 17 GM PACK PO PRN (17:25)
[2025-08-31] MEDS: LACTATED RINGER'S 1,000 ML IV SCH (17:35)
[2025-08-31] MEDS: POTASSIUM CHLORIDE 20 MEQ/15 ML UDC PO STA (18:23)
[2025-08-31] MEDS ORDERED: GABAPENTIN 600 MG TAB PO SCH (19:45)
[2025-08-31] MEDS: PRAZOSIN HCL 1 MG CAP PO SCH (22:30)
[2025-09-01 07:24] LABS: Hematocrit (blood only) 41.6 % (42.0-52.0); Hemoglobin 15.1 g/dl (14.0-18.0); Mean Corpuscular Hemoglobin 32.2 pg (25.0-34.0); Mean Corpuscular Volume 88.7 fL (80.0-100.0); Platelet Count 176 K/uL (130-400); RDW Standard Deviation 49.5 fL (36.4-46.3); Red Blood Count 4.69 M/uL (4.70-6.10); White Blood Count 5.88 K/ul (4.8-10.8)
[2025-09-01 07:50] LABS: Alanine Aminotransferase 114.0 U/L (7-52); Albumin Globulin Ratio 1.5 (0.9-2); Albumin Level 4.0 gm/dl (3.4-5.0); Alkaline Phosphatase 89.0 U/L (34-104); Anion Gap 9.0 (3-11); Bilirubin,Total 1.8 mg/dl (0.2-1.0); Blood Urea Nitrogen 12.0 mg/dl (6-23); Calcium 8.9 mg/dl (8.6-10.3); Carbon Dioxide 28.0 mmol/L (21-32); Chloride 102.0 mmol/L (98-107); Creatinine Clr Calc Pharmacy 110.2 ml/min; Globulin 2.7 gm/dl (2.5-4.0); Glucose 99.0 mg/dl (70-99(Fasting)); Magnesium 1.7 mg/dl (1.7-2.4); Potassium 3.5 mmol/L (3.5-5.1); Sodium 139.0 mmol/L (136-145); Total Protein 6.7 gm/dl (6.0-8.3)
[2025-09-01 08:04] VITALS: RESP 18
[2025-09-01] MEDS: FOLIC ACID 1 MG TAB PO SCH (08:27)
[2025-09-01] MEDS: THIAMINE HCL 100 MG TAB PO SCH (08:28)
[2025-09-01] MEDS ORDERED: POTASSIUM PHOS 3 MMOL/1 ML INFUSION IV STA (08:29)
[2025-09-01] MEDS: ESCITALOPRAM OXALATE 10 MG TAB PO SCH (08:59)
[2025-09-01] MEDS: POTASSIUM PHOSPHATE 21 MMOL in SODIUM CHLORIDE 0.9% 500 ML IV ONE (09:00)
[2025-09-01] MEDS ORDERED: GABAPENTIN 600 MG TAB PO SCH (09:45)
[2025-09-01 11:35] VITALS: BP 159/120; TEMP 99; O2SAT 96
[2025-09-01 13:21] VITALS: PULSE 65
[2025-09-01] MEDS: ONDANSETRON 4 MG OD TAB ONE (13:23)
[2025-09-01] MEDS: ONDANSETRON 4 MG OD TAB PO STA (13:25)
--- NOTE | 2025-09-01 13:39 | Discharge Summary ---
Discharge Summary Date of Service September 01, 2025 Principal Dx & Hospital Course #1 = Principal Diagnosis (1) Alcohol consumption binge drinking: (2) Alcoholic gastritis without bleeding: Plan Mr. Gillis is a 40 yo male with pmhx of heavy alcohol use (pint nightly of vodka), alcohol related gastritis, depression who presents for nausea, vomiting, and sweats 2/2 alcohol withdrawal and possible cannabis hyperemesis syndrome. Patient loaded with phenobarbital and doing better from a nausea standpoint. He tolerated breakfast and lunch. Upon entering room intially this am, patient was irate over burning sensation from [facility] in IV. Added IVF to dilute it. When reassessed to try to talk about goals and care moving forward, he was upset at the discussion of rehab. He states he spent "6 months in rehab and its a waste of time." He preceded to state that he "has been to more countries than [I] could imagine and has seen war." When explain about the current withdrawal protocol he demanded zofran and ativan. It was explained that given his vitals and current regimen of phenobarbital, that ativan is not indicated at this time. He states "well what are you going to send [him] with?" and to "get him the fk out of here." It was explained again, that there is no indication for ativan, but it can be discussed further if he would like about other agents and that zofran would be sent to his pharmacy. The conversation over his repeated admissions was attempted to try to understand a plan moving forward. He then expressed that this service writer advisor gave him anxiety and makes his blood pressure high and that this service writer advisor should leave the room. Zofran was sent to pharmacy and a one time dose given prior to discharge. Given the refusal of resources for withdrawal and patient stating that he does not want further IV electrolytes or further disucssion for cesstion, discharge was placed. Patient was AO4, eating his meals, and able to use his phone to call his father for a ride. Candelario clarisa was called iso aggressive and vulgar exchanges. Behavioral liaison able to facilitate conversation to aid in discharge. #Alcohol Use #Alcohol Withdrawal #R/o Cannabis Hyperemesis Syndrome -patient drinks a pint of vodka nightly -smokes marijuana daily, smoked last night -trace abdominal pain likely in setting of known alcohol related gastritis refused rehab or further discussion about resources phenobarbital loaded prescribed zofran -continue protonix 40 PO daily #Depression -continue lexapro Notes For Next Care Provider Medication Changes From Visit Protonix daily zofran 4mg q8 h prn Admission HPI Per Admitting Provider 40 yo male with pmhx of heavy alcohol use (pint nightly of vodka), alcohol related gastritis who presents for nausea, vomiting, and sweats. Had recent admission 05/2025 for alcohol withdrawal and gastritis. In the ED, got zofran and ativan, admitted to medicine for alcohol withdrawal. Patient seen and examined at bedside. States he drank a pint of vodka last night, woke up, was ok, then began withdrawing at work. Symptoms include sweats, tremors, nausea, vomiting. States he has been drinking more recently, after a period of being sober. Is unsure if he is willing to do alcohol rehab. Asks for ativan on many occasions to this provider and nurse throughout visit. Denies concomitant drug use, does use marijuana. Denies SOB, chest pain. Does endorse some diarrhea. Admission Exam Per Admitting Provider Gen: A&O 3 agitated HEENT: NCAT, EOMI, not icteric. External ears normal. No rhinorrhea. Moist mucous membranes. Neck: Supple, full range of motion, no observable masses, No meningeal sign. Lungs: No Respiratory distress. CV: RRR, no edema. Abdomen: mild tenderness to palpation in epigastric region MSK: No joint swelling, no redness. Skin: No rashes, petechiae, lesions. Normal color per patient. Neuro: Normal Gait, Grossly intact. Psych: Appropriate for situation. Discharge Exam Constitutional AOx4 crude, agitated to staff Respiratory no respiratory distress noted Cardiovascular normal heart rates on telemetry Neurologic no focal neurologic deficits Updated Medication List Medication Instructions Recorded Confirmed Type hydroxyzine HCl 50 mg tablet 50 mg PO HS PRN Sleep/Anxiety 05/17/25 08/31/25 History naltrexone microspheres 380 mg 380 mg IM Q28D 05/17/25 08/31/25 History intramuscular suspension,extended release (Vivitrol) pantoprazole 40 mg tablet,delayed 40 mg PO DAILY #30 tabs 06/18/25 08/31/25 Rx release Icy Hot 1 applic topical TID PRN Muscle 08/31/25 08/31/25 History Pain acetaminophen 325 mg tablet 975 mg PO TID PRN Pain 08/31/25 08/31/25 History chlordiazepoxide HCl 25 mg capsule 0 mg PO Q8H PRN anxiety/tremor 08/31/25 08/31/25 History cholecalciferol (vitamin D3) 25 3,000 unit PO DAILY 08/31/25 08/31/25 History mcg (1,000 unit) tablet escitalopram oxalate 10 mg tablet 10 mg PO DAILY 08/31/25 08/31/25 History famotidine 40 mg tablet 20 mg PO BID 08/31/25 08/31/25 History folic acid 1 mg tablet 1 mg PO DAILY 08/31/25 08/31/25 History hydrocortisone 2.5 % topical 1 applic topical BID PRN ECZEMA 08/31/25 08/31/25 History ointment lidocaine 5 % topical patch 1 patch topical DAILY PRN Pain 08/31/25 08/31/25 History meloxicam 15 mg tablet 15 mg PO DAILY 08/31/25 08/31/25 History mineral oil-hydrophil petrolat 1 applic topical BID PRN eczema 08/31/25 08/31/25 History topical ointment (petrolatum topical ointment) multivitamin with minerals 1 cap PO DAILY 08/31/25 08/31/25 History ondansetron HCl 4 mg tablet 0 mg PO Q8H 08/31/25 08/31/25 History prazosin 2 mg capsule 4 mg PO HS 08/31/25 08/31/25 History thiamine HCl (vitamin B1) 100 mg 100 mg PO DAILY 08/31/25 08/31/25 History tablet ondansetron HCl 4 mg tablet 4 mg PO Q8H PRN nausea and 09/01/25 Rx vomiting 5 days #15 tabs pantoprazole 40 mg tablet,delayed 40 mg PO QAM 30 days #30 tabs 09/01/25 Rx release Hospital Stay Data Consultations 08/31/25 14:26 ED Decision to Admit Stat Pending Results Patient Have Any Pending Studies at Discharge: No Discharge Instructions Given to Patient (Per Discharging Provider) You were admitted for nausea and vomiting and concerns for withdrawal. Your nausea stopped and you tolerated your diet. You declined resources for alcohol use and rehab. Total Time Total Time Spent Total Time Spent (In Minutes): 55
[2025-09-02] MEDS ORDERED: GABAPENTIN 600 MG TAB PO SCH (13:45)
[2025-09-04] MEDS ORDERED: GABAPENTIN 600 MG TAB PO SCH (01:45)
== END 2025-09-01 13:40 | disposition home or self-care (01) | DRG 392 ==
LOC: ED 11:32 → SUATTDRO 14:33 → 2S 14:33 → 2E 18:50